=== PATIENT | female | born 1950 | race Caucasian/White ===

== ENCOUNTER → 2016-08-13 | Outpatient (CLI) | payer MEDICARE ==
--- NOTE | 2016-08-13 14:40 | XR ---
EXAMINATION TYPE: XR shoulder complete RT DATE OF EXAM: 08/13/2016 2:27 PM CLINICAL HISTORY: pain TECHNIQUE: Three views of the right shoulder are obtained. COMPARISON: None FINDINGS: There is no acute fracture/dislocation evident. The acromioclavicular and glenohumeral kenton int spaces appear moderately narrowed. The visualized ribs are intact and unremarkable. IMPRESSION: 1. There is no acute fracture or dislocation. ICD 10 NO FRACTURE, INITIAL EVALUATION
--- NOTE | 2016-08-13 14:41 | XR ---
EXAMINATION TYPE: XR knee complete RT DATE OF EXAM: 08/13/2016 2:27 PM CLINICAL HISTORY: pain TECHNIQUE: Three views of the right knee are obtained. COMPARISON: None. FINDINGS: There is no acute fracture/dislocation. The tri-compartment joint spaces appear within no rmal limits. The overlying soft tissue appears unremarkable. IMPRESSION: There is no acute fracture or dislocation. ICD 10 NO FRACTURE, INITIAL EVALUATION
== END | disposition home or self-care (01) ==
LOC: RADXRMAIN 14:05
PROVIDERS: ATTEND Nurse Practitioner Women's Health
DX: M25.561 Pain in right knee (principal); M25.511 Pain in right shoulder

== ENCOUNTER → 2016-08-28 | Outpatient (CLI) | payer MEDICARE ==
--- NOTE | 2016-08-30 10:42 | MM ---
Reason for exam: screening (asymptomatic). History: Patient is postmenopausal. Physical Findings: A clinical breast exam by your physician is recommended on an annual basis and results should be correlated with mammographic findings. MG 3D Screening Mammo W/Cad Bilateral CC and MLO view(s) were taken. XCCL view(s) were taken of the right breast. No prior studies available for comparison. The breast tissue is almost entirely fat. There is no discrete abnormality. ASSESSMENT: Negative, BI-RAD 1 RECOMMENDATION: Routine screening mammogram of both breasts in 1 year.
== END | disposition home or self-care (01) ==
LOC: RADMAMWWP 11:30
PROVIDERS: ATTEND Family Medicine
DX: Z12.31 Encounter for screening mammogram for malignant neoplasm of breast (principal)
CPT/HCPCS: 77063; G0202

== ENCOUNTER → 2017-03-05 | Outpatient (CLI) | payer MEDICARE, OTHER ==
--- NOTE | 2017-03-05 14:11 | MR ---
EXAMINATION TYPE: MR knee RT wo con DATE OF EXAM: 03/05/2017 COMPARISON: Right knee x-ray August 13, 2016. HISTORY: rt knee pain not further specified per order or by patient. TECHNIQUE: Multiplanar, multisequence images of the knee is performed without IV contrast. FINDINGS: MEDIAL MENISCUS: Anterior horn is intact without tear. There is oblique increased signal posterior ho rn of medial meniscus, there is more globular signal centrally extending to inferior articular surfac e on sagittal image 12, full-thickness meniscal tear is felt present. LATERAL MENISCUS: Posterior horn is intact without tear. There is triangular and globular increased s ignal anterior horn extending to superior articular surface felt to reflect product of full-thickness meniscal tear CRUCIATE LIGAMENTS: The anterior and posterior cruciate ligaments are intact and unremarkable. COLLATERAL LIGAMENTS: The medial collateral ligament and lateral collateral ligament complex are inta ct and unremarkable. EXTENSOR MECHANISM: Visualized quadriceps and patellar tendons are intact. EFFUSION: No significant suprapatellar joint effusion. POPLITEAL CYST: There is small popliteal/arnold cyst measuring 3.0 cm on long axis sagittal image 9. TRICOMPARTMENT SPACES: There is advanced joint space loss patellofemoral compartment with mild spurri ng. There is mild to moderate joint space loss and spurring medial and lateral tibiofemoral compartme nts. CARTILAGE: There is significant chondromalacia patella with full-thickness cartilaginous loss along p osterior patellar pole identified. Cartilaginous thinning medial tibiofemoral compartment is noted wi thout full-thickness defect. BONE MARROW SIGNAL: There is heterogeneous T2 signal felt to reflect reactive edema involving the pos terior patellar pole seen best sagittal image 21 and axial image 17. OTHER: No additional significant abnormality is appreciated. IMPRESSION: 1. Full-thickness tear posterior horn of medial meniscus. 2. Full-thickness tearing anterior horn of lateral meniscus. 3. 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 4. Mild to moderate degenerative changes medial and lateral tibiofemoral compartments. 5. Small popliteal cyst.
== END | disposition home or self-care (01) ==
LOC: RADMRIMAIN 13:21
PROVIDERS: ATTEND Nurse Practitioner Women's Health
DX: S83.241A Other tear of medial meniscus, current injury, right knee, initial encounter (principal); S83.281A Other tear of lateral meniscus, current injury, right knee, initial encounter; M17.11 Unilateral primary osteoarthritis, right knee; M22.41 Chondromalacia patellae, right knee; M71.21 Synovial cyst of popliteal space [Baker], right knee

== ENCOUNTER → 2017-03-20 | Outpatient (CLI) | payer MEDICARE, OTHER ==
[2017-03-20 14:52] LABS: Basophils % (A) 0 %; CH 32.2; Eosinophils # (A) 0.1 k/uL (0-0.7); Eosinophils % (A) 1 %; HCT 42.1 % (34.0-46.0); HDW 2.41; HGB 13.9 gm/dL (11.4-16.0); Luc # (Auto) 0.12; Luc % (Auto) 1; Lymphocytes # (A) 1.6 k/uL (1.0-4.8); Lymphocytes % (A) 18 %; MCH 32.4 pg (25.0-35.0); MCV 97.9 fL (80.0-100.0); Mean Platelet Volume 7.5; Monocytes # (A) 0.3 k/uL (0-1.0); Monocytes % (A) 4 %; Neutrophils # (A) 6.7 k/uL (1.3-7.7); Neutrophils % (A) 76 %; RDW 13.1 % (11.5-15.5); WBC 8.8 k/uL (3.8-10.6); WBC (Perox) 9.51
[2017-03-20 14:56] LABS: Partial Thromboplastin Time 22.2 sec (22.0-30.0); Prothrombin Time 10.4 sec (9.0-12.0)
[2017-03-20 15:06] LABS: ALT 22 U/L (9-52); AST 21 U/L (14-36); Alkaline Phosphatase 72 U/L (38-126); Anion Gap 9 mmol/L; Blood Urea Nitrogen 12 mg/dL (7-17); Calcium 9.4 mg/dL (8.4-10.2); Carbon Dioxide 30 mmol/L (22-30); Chloride 104 mmol/L (98-107); Glucose 161 mg/dL (74-99); Non-African American GFR(MDRD) >60 (>60 ml/min/1.73 sqM); Sodium 143 mmol/L (137-145); Total Bilirubin 0.5 mg/dL (0.2-1.3); Total Protein 7.1 g/dL (6.3-8.2)
== END | disposition home or self-care (01) ==
LOC: LABWHC1 14:14
PROVIDERS: ATTEND Family Medicine
DX: Z00.00 Encounter for general adult medical examination without abnormal findings (principal); L82.1 Other seborrheic keratosis; E78.00 Pure hypercholesterolemia, unspecified
CPT/HCPCS: 36415; 80053; 85025; 85610; 85730

== ENCOUNTER → 2017-03-22 | Outpatient (CLI) | payer MEDICARE, OTHER | END | disposition home or self-care (01) | LOC: LABPAT 09:40 | PROVIDERS: ATTEND Orthopaedic Surgery | DX: Z01.812 Encounter for preprocedural laboratory examination (principal) | CPT/HCPCS: 87070 ==

== ENCOUNTER → 2017-04-01 | Outpatient (CLI) | payer MEDICARE, OTHER | LOC: LABWHC1 09:00 | PROVIDERS: ATTEND Orthopaedic Surgery | DX: Z01.812 Encounter for preprocedural laboratory examination (principal); M16.11 Unilateral primary osteoarthritis, right hip | CPT/HCPCS: 86850; 86900; 86901 ==

== ENCOUNTER 2017-04-09 08:31 | Inpatient (IN) | payer MEDICARE, OTHER ==
[2017-03-29 15:05] VITALS: BMI 31.4
--- NOTE | 2017-04-05 15:16 | HP ---
HISTORY AND PHYSICAL CHIEF COMPLAINT: Right hip pain. HISTORY OF PRESENT ILLNESS: The patient is a 66-year-old retired female who presents with progressive right hip and thigh pain with activity and weightbearing over the past year. It has worsened significantly over the past 3 months. She notes she is limping. She has tried medications with only partial temporary relief. PAST MEDICAL HISTORY: Significant for hypertension, hypercholesterolemia, and heart murmur. PAST SURGICAL HISTORY: Significant for cholecystectomy. CURRENT MEDICATIONS: 1. Lasix. 2. Lisinopril. 3. Lovastatin. 4. Metoprolol. 5. Tramadol. She denies drug allergies. FAMILY HISTORY: Significant for cancer. SOCIAL HISTORY: Negative for current tobacco or alcohol use. 16-POINT REVIEW OF SYSTEMS: Otherwise reviewed and is noncontributory. PHYSICAL EXAMINATION: The patient is approximately 5 foot 6, 199 pounds of endomorphic habitus. HEENT exam is nonfocal. Neck is supple. She is nontender about the lumbar spine. Passive motion of the right hip, flexion 80 degrees, extension full. With the hips flexed, external rotation is 45 degrees. Internal rotation is 0 degrees with pain. Clinically, she has got 1 cm shortening of the right lower extremity compared to the left. Her distal neurovascular appears intact in the right lower extremity. X-RAYS: The right hip obtained in the office show severe right hip osteoarthrosis with bone-on- bone changes. IMPRESSION: 1. Right hip severe osteoarthrosis-symptomatic. 2. Increased body mass index. RECOMMENDATIONS: I talked to the patient at length regarding her treatment options. At this point, she is quite symptomatic and opts to proceed with surgery. We will plan to proceed with right total hip arthroplasty. Risks and benefits were discussed at length in layman's terms. We will institute DVT prophylaxis postoperatively. The patient underwent preoperative medical evaluation by Dr. Murrieta. MMANURADHA / RUBINAN: [id number] /
[~2017-04-09 08:31] MED LIST: ACETAMINOPHEN TAB 500 MG TAB PO ONE; DEXAMETHASONE SOD PHOSPHATE 10 MG/ML 1 ML VIAL IV ONE; HYDROmorphone 1 MG/ML 1 ML SYRINGE IVP PRN; LIDOCAINE 1% 20 ML VIAL (10MG/ML) FOR IV START INTRADERMA PRN; MELOXICAM 7.5 MG TAB PO ONE; ONDANSETRON 4 MG/2 ML VIAL IVP ONE; SCOPOLAMINE 1.5MG/72HR PATCH TRANSDERM ONE; TRANEXAMIC ACID 1,000 MG in SODIUM CHLORIDE 0.9% 100 ML IVPB ONE; ceFAZolin 2 GM in SODIUM CHLORIDE 0.9% 100 ML IVPB ONE
[2017-04-09] MEDS: LACTATED RINGERS 1,000 ML IV SCH (09:19)
[2017-04-09] MEDS ORDERED: MIDAZOLAM 2 MG/2 ML VIAL IV ONE (09:23)
[2017-04-09] MEDS ORDERED: SODIUM CHLORIDE 0.9% 100 ML BAG ONE (10:44)
[2017-04-09] MEDS ORDERED: fentaNYL (PF) 50 MCG/ML 2 ML AMP ONE (10:44)
[2017-04-09] MEDS ORDERED: PROPOFOL 10 MG/ML 20 ML VIAL IV ONE (10:44)
[2017-04-09] MEDS ORDERED: diphenhydrAMINE 50 MG/ML 1 ML VIAL ONE (10:44)
[2017-04-09] MEDS ORDERED: TRANEXAMIC ACID 1,000 MG/10 ML VIAL ONE (10:44)
[2017-04-09] MEDS ORDERED: MIDAZOLAM 2 MG/2 ML VIAL ONE (10:44)
[2017-04-09] MEDS ORDERED: ceFAZolin 3,000 MG in SODIUM CHLORIDE 0.9% IRRIGATIO 3,000 ML IRRIGATION ONE (11:30)
[2017-04-09] MEDS ORDERED: LACTATED RINGERS 1,000 ML IV ONE (12:03)
[2017-04-09] MEDS ORDERED: ONDANSETRON 4 MG/2 ML VIAL IVP PRN (13:09)
[2017-04-09] MEDS ORDERED: NALOXONE 0.4 MG/ML 1 ML VIAL IV PRN (13:09)
[2017-04-09] MEDS ORDERED: MAGNESIUM HYDROXIDE 2,400 MG/10 ML CUP PO PRN (13:09)
[2017-04-09] MEDS ORDERED: HYDROmorphone 1 MG/ML 1 ML SYRINGE IVP PRN ×2 (13:09)
[2017-04-09] MEDS ORDERED: HYDROcodone/APAP 5-325MG 1 EACH TAB PO PRN (13:09)
--- NOTE | 2017-04-09 13:33 | XR ---
Limited right hip HISTORY: Right hip replacement Intraoperative C-arm image documents the procedure
--- NOTE | 2017-04-09 13:42 | P.OP ---
Date of Procedure: 04/09/17 Preoperative Diagnosis: Right hip severe osteoarthrosis-primary Postoperative Diagnosis: Same Procedure(s) Performed: Right total hip qszirjcjrerc-hmqfx-njd-anterior approach Implants: Depuy Corail size 11 collared press-fit femoral stem, 32 mm +1.5 cobalt chrome femoral head, neutral polyethylene liner, 54 mm acetabular shell. Anesthesia: spinal Surgeon: Shadi Erickson Internet Marketing Consultant #1: Allen Aldridge Estimated Blood Loss (ml): 450 Pathology: other (Femoral head) Condition: stable Disposition: PACU Indications for Procedure: The patient's a 66-year-old female who presents with progressive right hip pain secondary to osteoarthrosis despite conservative measures. A discussion of the risks and benefits of operative intervention versus continued conservative measures was made with the patient. She opted to proceed. Operative risks to include infection, neurovascular injury, development of blood clots, possible leg length discrepancy, possible dislocation, possible fracture, possible loosening components and need for subsequent procedures was discussed. Informed consent was obtained. Operative Findings: As below Description of Procedure: The patient was brought to the operating room, and after induction of spinal anesthesia was placed supine on the Sabinal table. The right lower extremity was prepped and draped in normal fashion. Preoperative templating was previously performed as to make component positioning and sizes. She did have severe left hip osteoarthrosis as well. The proposed incision site was outlined with a skin marker proximally 3 finger breaths posterior and 2 finger breaths distal to the anterior superior iliac spine in line with the femoral shaft. The incision was extended and 12 cm. Skin was incised sharply. Subcu tissues were divided sharply. The fascia was identified. The perforators were identified. The fascia was opened just anterior to the perforators. The tensor muscle was bluntly dissected developing the tensor fascia shu/sartorius interval. The lateral circumflex vessels were identified and coagulated prior to sectioning. The posterior portion of the fascia was opened. The rectus was identified and elevated off the anterior capsule. Retractors were placed along the superior femoral neck an anterior acetabular rim. A wide capsulotomy was performed. The saddle region was cleared of soft tissue. The femoral neck osteotomy was performed at a 45 angle shaft proximal 1 cm above the level of the lesser trochanter. The head was extracted with a corkscrew. The remaining capsular labral tissue was debrided sharply. Retractors were placed anterior and posterior along the acetabular rims. I began reaming with a 47 mm reamer taking care to initially medialize then reaming at 45 of abduction and 20 of anteversion. This was done with the aid of fluoroscopy. Sequential reaming is performed up to 53 mm down to a bleeding bony surface. A 54 mm acetabular shell was inserted in the same orientation as fully seated. It was good rim fit and stability. The final 50 mm acetabular shell was inserted in 45 of abduction and 20 of anteversion. This was fully seated. I did place a 6.5 mm x 25 mm cancellus screw for additional stability. Good purchase was obtained. A neutral polyethylene liner was gently impacted taking care to avoid any soft tissue interposition. Pulsatile lavage was utilized. Attention was then paid towards preparing the proximal femur. Appropriate retractors were placed. The canal was then opened with the canal finder. A box chisel was used to open the metaphyseal region. Sequential broaching was performed up to size 11 broach. This was placed parallel to the posterior cortex and was fully seated. A calcar mill was used to fashion the medial calcar. A standard neck along with 32 mm +1.5 head was placed. The hip was gently reduced. It was taken through range of motion. It was stable in 0 and 60 of extension with 70 of external rotation. I felt there was adequate voodoo of soft tissue tension. There did appear to be 5 mm of lengthening of the right lower extremity compared to the left, however since she had significant osteoarthrosis on the left I felt this was reasonable. The hip was gently dislocated. The trial components were then removed. The final femoral stem was inserted again parallel to the posterior cortex and was fully seated. Again there was good rotational stability. The 32 mm +1.5 mm cobalt chrome head was gently impacted. The hip was gently reduced. Again it was taken through a range of motion in 0 and 60 of extension with external rotation. Pulsatile lavage was again utilized. The fascia was closed with running 0 Vicryl suture. The subcu tissues reapproximated interrupted 2-0 Vicryl sutures. The skin was reapproximated with 3-0 subcuticular strata fix suture. Skin tape and adhesive was applied. A sterile dressing was applied. The patient was then awoken from the patient and transferred to recovery room in good condition. Blood loss was estimated at 450 mL. She did receive Cell Saver. No complications were incurred. Sponge and needle counts were correct at the end the case.
--- NOTE | 2017-04-09 14:29 | XR ---
Limited right hip HISTORY: Status post right hip placement Single frontal view of the right hip No comparisons Patient is status post right hip arthroplasty. There is anatomic alignment in this single view. No fr acture or dislocation. Bone mineralization is reduced. Lucency in the soft tissues compatible with po stop state. IMPRESSION: Orthopedic follow-up
[2017-04-09] MEDS: HYDROcodone/APAP 5-325MG 1 EACH TAB PO PRN (16:17)
[2017-04-09] MEDS: ceFAZolin 2 GM in SODIUM CHLORIDE 0.9% 100 ML IVPB SCH (16:18)
--- NOTE | 2017-04-09 16:58 | FL ---
Fluoroscopy INDICATION: Pain FINDINGS: Fluoroscopy time: 1.24 minutes Images obtained: 1. IMPRESSIONS: 1. Documentation of fluoroscopy.
[2017-04-09] MEDS: traMADol 50 MG TAB PO SCH ×2 (18:37→22:58)
[2017-04-09] MEDS: SENNOSIDES-DOCUSATE SODIUM 1 EACH TAB PO SCH (22:58)
[2017-04-09] MEDS: LISINOPRIL 20 MG TAB PO SCH (23:24)
[2017-04-10] MEDS: ceFAZolin 2 GM in SODIUM CHLORIDE 0.9% 100 ML IVPB SCH (00:48)
[2017-04-10] MEDS: LACTATED RINGERS 1,000 ML IV SCH ×2 (00:50→21:52)
[2017-04-10 07:13] LABS: ALT 30 U/L (9-52); AST 31 U/L (14-36); Alkaline Phosphatase 53 U/L (38-126); Anion Gap 6 mmol/L; Blood Urea Nitrogen 14 mg/dL (7-17); Calcium 8.9 mg/dL (8.4-10.2); Carbon Dioxide 26 mmol/L (22-30); Chloride 106 mmol/L (98-107); Glucose 119 mg/dL (74-99); Non-African American GFR(MDRD) >60 (>60 ml/min/1.73 sqM); Potassium 4.3 mmol/L (3.5-5.1); Sodium 138 mmol/L (137-145); Total Bilirubin 0.4 mg/dL (0.2-1.3); Total Protein 5.5 g/dL (6.3-8.2)
[2017-04-10 07:29] LABS: Basophils % (A) 0 %; CH 33.3; CHCM 33.7; Eosinophils % (A) 0 %; HCT 32.6 % (34.0-46.0); HDW 2.35; Luc # (Auto) 0.15; Luc % (Auto) 1; Lymphocytes # (A) 1.3 k/uL (1.0-4.8); Lymphocytes % (A) 11 %; MCH 32.8 pg (25.0-35.0); MCHC 33.1 g/dL (31.0-37.0); MCV 99.3 fL (80.0-100.0); Mean Platelet Volume 7.7; Monocytes # (A) 0.5 k/uL (0-1.0); Monocytes % (A) 5 %; Neutrophils # (A) 9.7 k/uL (1.3-7.7); Neutrophils % (A) 83 %; RBC 3.28 m/uL (3.80-5.40); RDW 13.6 % (11.5-15.5); WBC 11.7 k/uL (3.8-10.6); WBC (Perox) 12.06
[2017-04-10 07:37] LABS: HGB 10.8 gm/dL (11.4-16.0)
[2017-04-10 07:42] VITALS: RESP 16
[2017-04-10] MEDS: ATORVASTATIN 10 MG TAB PO SCH (08:07)
[2017-04-10] MEDS: METOPROLOL TARTRATE 25 MG TAB PO SCH (08:07)
[2017-04-10] MEDS: LISINOPRIL 20 MG TAB PO SCH ×2 (08:07→20:02)
[2017-04-10] MEDS: FAMOTIDINE 20 MG TAB PO SCH (08:07)
[2017-04-10] MEDS: FUROSEMIDE 10 MG TAB PO SCH (08:07)
[2017-04-10] MEDS: POTASSIUM CITRATE 10 MEQ TABLET.ER PO SCH (08:07)
[2017-04-10] MEDS: RIVAROXABAN 10 MG TAB PO SCH (08:07)
[2017-04-10] MEDS: HYDROcodone/APAP 5-325MG 1 EACH TAB PO PRN (08:07)
--- NOTE | 2017-04-10 09:10 | P.CONS ---
History of Present Illness - Reason for Consult Consult date: 04/10/17 Medical management - Chief Complaint Right hip osteoarthritis - History of Present Illness 66-year-old female who underwent a right total hip arthroplasty. Dr. Maynard/Glenny was consulted for medical management. The patient has had worsening right hip pain over the last year and has tried conservative treatment outpatient with only minor relief. An x-ray completed at Dr. Erickson's office showed severe right hip osteoarthritis with [id number] changes. The patient does have a history of hypertension and hypercholesterolemia. The patient underwent a total right hip arthroplasty, anterior approach with Dr. Erickson on 04/09/2017 without complication. This morning she is seen sitting up in bed doing well. She states her pain is under control at this time and only really hurts when she moves her leg. The dressing to her right hip is dry clean and intact. The patient does not have any edema to the lower extremities. She is wearing FRANCK hose and sequential compression devices bilaterally. She denies shortness of breath or chest pain. Her oxygen saturations remained remained greater than 92% on room air. She is tolerating a regular diet without nausea or vomiting. She states she has not been out of bed yet but is anticipating getting up with physical therapy today. The patient does state her a couple days ago. The patient plans to go home with her children at the time of discharge. Review of Systems GENERAL: Patient denies fever, chills, weight gain, or weight loss. RESPIRATORY: Denies dyspnea, cough, sputum production, or hemoptysis. CARDIOVASCULAR: Denies chest pain, pressure, palpitations, claudication, or arrhythmias. GI: Denies abdominal pain, diarrhea, incontinence, heartburn, nausea, constipation, or blood in the stool. : Denies urinary frequency, burning, dysuria, or cloudy urine. Denies blood in the urine. MUSCULOSKELETAL: Positive for mild pain of right hip near surgical site. Past Medical History Past Medical History: Hyperlipidemia, Hypertension, Osteoarthritis (OA) Additional Past Medical History / Comment(s): RT HIP OA. WEARS SUPPORT STOCKINGS. HEART MURMUR. History of Any Multi-Drug Resistant Organisms: None Reported Past Surgical History: Cholecystectomy Additional Past Surgical History / Comment(s): COLONOSCOPY Past Anesthesia/Blood Transfusion Reactions: No Reported Reaction Past Psychological History: No Psychological Hx Reported Smoking Status: Never smoker Past Alcohol Use History: None Reported Additional Past Alcohol Use History / Comment(s): SMOKED OCC FOR MANY YEARS, NONE SINCE 1996 EST Past Drug Use History: None Reported - Past Family History Mother Family Medical History: Cancer Medications and Allergies Home Medications Medication Instructions Recorded Confirmed Type Furosemide [Lasix] 10 mg PO DAILY 03/29/17 04/09/17 History Ibuprofen [Motrin] 200 - 400 mg PO Q6HR PRN 03/29/17 04/09/17 History Lisinopril [Prinivil] 20 mg PO BID 03/29/17 04/09/17 History Lovastatin [Mevacor] 40 mg PO DAILY 03/29/17 04/09/17 History Metoprolol Tartrate [Lopressor] 25 mg PO DAILY 03/29/17 04/09/17 History Potassium Citrate [Potassium 10 meq PO DAILY 03/29/17 04/09/17 History Citrate ER] Rivaroxaban [Xarelto] 10 mg PO DAILY #28 tab 04/09/17 Rx Allergies Allergy/AdvReac Type Severity Reaction Status Date / Time No Known Allergies Allergy Verified 04/09/17 13:51 Physical Exam Vitals: Vital Signs Temp Pulse Pulse Pulse Resp BP BP 04/10/17 07:00 97.7 F 74 16 131/74 04/10/17 04:38 97.8 F 68 17 131/72 04/10/17 04:00 16 04/10/17 00:00 16 04/09/17 20:00 16 04/09/17 19:50 97.9 F 80 16 155/76 04/09/17 16:50 82 146/67 04/09/17 16:35 84 149/68 04/09/17 16:20 85 160/70 04/09/17 16:05 87 151/72 04/09/17 15:50 78 149/76 04/09/17 15:35 73 167/74 04/09/17 15:20 62 171/78 04/09/17 15:05 140/65 04/09/17 14:50 96.8 F L 69 16 176/93 04/09/17 14:25 63 16 143/74 04/09/17 14:10 58 L 16 137/70 04/09/17 13:55 52 L 6 L 126/66 04/09/17 13:40 56 L 16 132/63 04/09/17 13:27 98.9 F 59 L 16 132/61 04/09/17 09:00 98.3 F 80 16 198/89 Pulse Ox 04/10/17 07:00 93 L 04/10/17 04:38 97 04/10/17 04:00 04/10/17 00:00 04/09/17 20:00 04/09/17 19:50 95 04/09/17 16:50 04/09/17 16:35 04/09/17 16:20 04/09/17 16:05 04/09/17 15:50 04/09/17 15:35 04/09/17 15:20 04/09/17 15:05 04/09/17 14:50 95 04/09/17 14:25 99 04/09/17 14:10 99 04/09/17 13:55 100 04/09/17 13:40 98 04/09/17 13:27 97 04/09/17 09:00 96 Intake and Output 04/09/17 04/10/17 04/10/17 22:59 06:59 14:59 Intake Total 800 400 180 Output Total 800 980 900 Balance 0 -580 -720 Intake: IV 200 400 Lactated Ringers 1,000 ml 200 400 @ 50 mls/hr IV .Q20H [facility] Rx#:[id number] Oral 600 180 Output: Urine 800 980 900 Uretheral (Lopez) 980 900 Other: Voiding Method Indwelling Catheter Indwelling Catheter GENERAL: Alert and oriented. Appears in no acute distress. Pleasant and cooperative. RESPIRATORY: Lungs clear bilaterally. No use of accessory muscles. Patient maintaining oxygen saturation greater than 92% on room air. CARDIOVASCULAR: S1 and S2 noted. Rate and rhythm regular. No JVD noted. EXTREMITIES: No edema noted. Palpable pedal pulses +2. FRANCK hose and sequential compression devices noted ABDOMEN: No distention noted. Abdomen soft and round. bowel sounds auscultated 4 quadrants. No pain or tenderness noted upon palpation. SKIN: Dressing to right hip dry clean and intact. No drainage noted Results CBC & Chem 7: 04/10/17 06:37 04/10/17 06:37 Labs: Abnormal Lab Results - Last 24 Hours (Table) 04/10/17 04/10/17 Range/Units 06:37 06:37 WBC 11.7 H (3.8-10.6) k/uL RBC 3.28 L (3.80-5.40) m/uL Hgb 10.8 L D (11.4-16.0) gm/dL Hct 32.6 L (34.0-46.0) % Neutrophils # 9.7 H (1.3-7.7) k/uL Glucose 119 H (74-99) mg/dL Total Protein 5.5 L (6.3-8.2) g/dL Albumin 3.0 L (3.5-5.0) g/dL Assessment and Plan Plan: ASSESSMENT: Osteoarthritis, status post elective right total hip arthroplasty History of hypertension History of hypercholesterolemia Mild Leukocytosis, likely reactive secondary to surgery PLAN: -Continue postop surgical regimen per Dr. Erickson -Encourage ambulation. Patient work with physical therapy today -Continue incentive spirometer -GI prophylaxis: Patient receiving Pepcid 20 mg daily -DVT prophylaxis: Patient on Xarelto -Monitor vital signs and address as appropriate -Monitor labs -Resume home meds The above impression and plan of care have been discussed and directed by signing physician. Roberta Butler, nurse practitioner, acting as scribe for signing physician.
[2017-04-10] MEDS: traMADol 50 MG TAB PO SCH ×4 (09:45→21:28)
--- NOTE | 2017-04-10 12:13 | P.PN ---
Subjective Principal diagnosis: Status post right total hip arthroplasty Patient seen today resting in her hospital chair, she appears comfortable. She has family present at bedside. She notes minimal discomfort in the right hip region. She denies any headaches, lightheadedness, chest pain, shortness of breath. Objective - Vital Signs Vital signs: Vital Signs Temp 97.7 F 04/10/17 07:00 Pulse 74 04/10/17 07:00 Resp 16 04/10/17 07:00 BP 131/74 04/10/17 07:00 Pulse Ox 93 L 04/10/17 07:00 Intake & Output 04/09/17 04/10/17 04/10/17 18:59 06:59 18:59 Intake Total 196 1200 180 Output Total 800 1580 900 Balance 1161 380 -720 Weight 88.451 kg Intake: IV 1960 600 Lactated Ringers 1,000 ml 600 @ 50 mls/hr IV .Q20H [facility] Rx#:[id number] Oral 600 180 Output: Urine 350 1580 900 Uretheral (Lopez) 980 900 Estimated Blood Loss 450 Other: Voiding Method Indwelling Catheter Indwelling Catheter - Exam Right lower extremity: The incision is clean, dry, and intact. Minimal soft tissues ecchymosis. Calf is soft, no tenderness with palpation. Plantar flexion, dorsiflexion, EHL, FHL are intact. Sensory exam to light touch throughout the extremities intact, dorsal pedis pulses 2+. - Labs CBC & Chem 7: 04/10/17 06:37 04/10/17 06:37 Labs: Abnormal Lab Results - Last 24 Hours (Table) 04/10/17 04/10/17 Range/Units 06:37 06:37 WBC 11.7 H (3.8-10.6) k/uL RBC 3.28 L (3.80-5.40) m/uL Hgb 10.8 L D (11.4-16.0) gm/dL Hct 32.6 L (34.0-46.0) % Neutrophils # 9.7 H (1.3-7.7) k/uL Glucose 119 H (74-99) mg/dL Total Protein 5.5 L (6.3-8.2) g/dL Albumin 3.0 L (3.5-5.0) g/dL Assessment and Plan Plan: Assessment: 1. Postop day 1 status post right total hip arthroplasty Plan: 1. Pain control, continue use of oral medication 2. Continue working with therapy and use of CPM 3. Daily dressing changes/ice and elevate 4. Encourage incentive spirometer 5. GI and DVT prophylaxis, continue Xarelto 6. Medical recommendations 7. Discharge planning: Patient likely discharged home tomorrow Time with Patient: Less than 30
[2017-04-10] MEDS: SENNOSIDES-DOCUSATE SODIUM 1 EACH TAB PO SCH (20:01)
[2017-04-11] MEDS: HYDROcodone/APAP 5-325MG 1 EACH TAB PO PRN (06:41)
[2017-04-11 07:50] VITALS: BP 123/73; PULSE 77; TEMP 98.2
[2017-04-11] MEDS: traMADol 50 MG TAB PO SCH ×2 (08:05→13:15)
[2017-04-11] MEDS: POTASSIUM CITRATE 10 MEQ TABLET.ER PO SCH (08:06)
[2017-04-11] MEDS: ATORVASTATIN 10 MG TAB PO SCH (08:06)
[2017-04-11] MEDS: LISINOPRIL 20 MG TAB PO SCH (08:06)
[2017-04-11] MEDS: FUROSEMIDE 10 MG TAB PO SCH (08:06)
[2017-04-11] MEDS: FAMOTIDINE 20 MG TAB PO SCH (08:06)
[2017-04-11] MEDS: METOPROLOL TARTRATE 25 MG TAB PO SCH (08:06)
[2017-04-11] MEDS: RIVAROXABAN 10 MG TAB PO SCH (08:07)
--- NOTE | 2017-04-11 11:37 | P.PN ---
Subjective Principal diagnosis: Status post right total hip arthroplasty Patient seen today resting in her hospital chair, she appears comfortable. She notes minimal discomfort in the right hip region. She denies any headaches, lightheadedness, chest pain, shortness of breath. Objective - Vital Signs Vital signs: Vital Signs Temp 98.2 F 04/11/17 07:00 Pulse 77 04/11/17 07:00 Resp 16 04/11/17 07:00 BP 123/73 04/11/17 07:00 Pulse Ox 97 04/11/17 07:00 Intake & Output 04/10/17 04/11/17 04/11/17 18:59 06:59 18:59 Intake Total 1300 100 Output Total 900 Balance 400 100 Intake: Oral 1300 100 Output: Urine 900 Uretheral (Lopez) 900 Other: Voiding Method Indwelling Catheter Toilet Toilet # Voids 1 - Exam Right lower extremity: The incision is clean, dry, and intact. Minimal soft tissues ecchymosis. Calf is soft, no tenderness with palpation. Plantar flexion, dorsiflexion, EHL, FHL are intact. Sensory exam to light touch throughout the extremities intact, dorsal pedis pulses 2+. - Labs CBC & Chem 7: 04/10/17 06:37 04/10/17 06:37 Assessment and Plan Plan: Assessment: 1. Postop day #2 status post right total hip arthroplasty Plan: 1. Pain control, continue use of oral medication 2. Continue working with therapy and use of CPM 3. Daily dressing changes/ice and elevate 4. Encourage incentive spirometer 5. GI and DVT prophylaxis, discharged home on aspirin 325 mg twice a day 6. Medical recommendations 7. Discharge planning: Patient will be discharged home today Time with Patient: Less than 30
--- NOTE | 2017-04-11 11:43 | P.DS ---
Providers Date of admission: 04/09/17 08:31 Expected date of discharge: 04/11/17 Attending physician: Shadi Erickson Consults: 04/09/17 13:09 Consult Physician Routine Consulting Provider: Maico Maynard Reason/Comments: medical management Do you want consulting provider notified?: Yes Primary care physician: Maico Maynard Hospital Course: Date of admission: 04/09/2017 Date of discharge: 04/11/2017 Admission diagnosis: Status post right total hip arthroplasty Discharge diagnosis: Same Attending physician: Dr. Erickson Surgical procedures: Right total hip arthroplasty Brief history: Patient is a 66-year-old female with a history of progressive primary right hip osteoarthritis. At this point patient has failed conservative treatment measures and has opted to proceed with a elective right total hip arthroplasty. Hospital course: Details of patient's surgery can be found in operative report. Patient tolerated the procedure well and was subsequently transported to orthopedic floor. Patient's orthopeidc and medical care was provided daily. Patient had daily laboratory tests performed for evaluation of overall blood counts. Patient had daily physical therapy to include strengthening range of motion as well as education with walker ambulation. Patient was treated with Xarelto for their postoperative DVT prophylaxis during their inpatient stay. Patient was noted to have a relatively uneventful postoperative course. Patient reported satisfactory pain control with oral pain medications by postoperative day 0. Patient showed satisfactory progress with physical therapy. Patient moved steadily through the program and had no difficulty meeting the goals by postoperative day 2. Given patient's otherwise satisfactory course and having met physical therapy goals, plan is to discharge patient home on postoperative day 2. Discharge condition/disposition: Patient will be discharged home in stable condition. Discharge medications: Instructions are given on resumption of patient's normal daily medications per primary care recommendation, in addition patient will be prescribed [place] 5 mg/325 mg, tramadol 50 mg, Pepcid 20 mg, Colace 100 mg, aspirin and 25 mg. Discharge instructions: 1. Wound care and infection precautions, keep incision dry and covered while showering, no lotions, creams, moisturizers. No soaking, tubs, pools, hottubs. Do not scrub over the incision. 2. Weight-bear as tolerated with walker / cane until follow-up. 3. Ice and elevate when necessary. Do not exceed 20 minutes per hour with ice pack. 4. Utilize compression sleeve until seen at first follow up appointment. 5. Visiting nursing care. 6. Home physical therapy. 7. Pain meds and anticoagulants per prescription. 8. Pain medication has potential to cause constipation. Increase oral fluid and fiber intake. Contact primary care provider if you have not had a bowel movement within 48 hours after discharge 9. No anti-inflammatory medication until discussed at first post operative visit, this including Motrin, Aleve, Mobic, Diclofenac. 10. Follow up in office at 2 weeks postop with Theron Aldridge PA-C 11. Follow up with your primary care doctor 7-10 days after discharge. 12. Contact [facility] with any questions, . Procedures: Right total hip arthroplasty Patient Condition at Discharge: Good Plan - Discharge Summary New Discharge Prescriptions: New Aspirin 325 mg PO BID #60 tab Docusate [Colace] 100 mg PO DAILY #30 capsule Famotidine [Pepcid] 20 mg PO DAILY #30 tablet Hydrocodone/Acetaminophen [[place] 5-325] 1 - 2 each PO Q6HR PRN #40 tab PRN Reason: Pain traMADol HCl [Ultram] 50 mg PO Q6H PRN #40 tab PRN Reason: Pain No Action Ibuprofen [Motrin] 200 - 400 mg PO Q6HR PRN PRN Reason: Pain Potassium Citrate [Potassium Citrate ER] 10 meq PO DAILY Lisinopril [Prinivil] 20 mg PO BID Metoprolol Tartrate [Lopressor] 25 mg PO DAILY Furosemide [Lasix] 10 mg PO DAILY Lovastatin [Mevacor] 40 mg PO DAILY Discharge Medication List Furosemide [Lasix] 10 mg PO DAILY 03/29/17 [History] Ibuprofen [Motrin] 200 - 400 mg PO Q6HR PRN 03/29/17 [History] Lisinopril [Prinivil] 20 mg PO BID 03/29/17 [History] Lovastatin [Mevacor] 40 mg PO DAILY 03/29/17 [History] Metoprolol Tartrate [Lopressor] 25 mg PO DAILY 03/29/17 [History] Potassium Citrate [Potassium Citrate ER] 10 meq PO DAILY 03/29/17 [History] Aspirin 325 mg PO BID #60 tab 04/11/17 [Rx] Docusate [Colace] 100 mg PO DAILY #30 capsule 04/11/17 [Rx] Famotidine [Pepcid] 20 mg PO DAILY #30 tablet 04/11/17 [Rx] Hydrocodone/Acetaminophen [[place] 5-325] 1 - 2 each PO Q6HR PRN #40 tab 04/11/17 [Rx] traMADol HCl [Ultram] 50 mg PO Q6H PRN #40 tab 04/11/17 [Rx] Follow up Appointment(s)/Referral(s): [facility], [NON-STAFF] - Allen Aldridge PAC [PHYSICIAN MECHANICAL LEAD] - 04/24/17 3:30 pm Maico Maynard MD [Primary Care Provider] - 3 Days Activity/Diet/Wound Care/Special Instructions: Orthopedic Discharge Instructions: 1. Wound care and infection precautions, keep incision dry and covered while showering, no lotions, creams, moisturizers. No soaking, pools, hot tubs. Do not scrub over incision. 2. Weight-bear as tolerated with walker / cane until follow-up. 3. Ice and elevate when necessary. Do not exceed 20 minutes per hour with ice pack. 4. Utilize compression sleeve until seen at first follow up appointment. 5. Visiting nursing care. 6. Home physical therapy. 7. Pain meds and anticoagulants per prescription. 8. Pain medication has potential to cause constipation. Increase oral fluid and fiber intake. Contact primary care provider if you have not had a bowel movement within 48 hours after discharge. 9. No anti-inflammatory medication until discussed at first post operative visit, this including Motrin, Aleve, Mobic, Diclofenac. 10. Follow up in office at 2 weeks postop with Theron Aldridge PA-C 11. Follow up with your primary care doctor 7-10 days after discharge. 12. Contact [facility] with any questions, . Discharge Disposition: HOME WITH HOME HEALTH SERVICES
--- NOTE | 2017-04-11 12:43 | P.PN ---
Progress Note - Text 66-year-old female seen and examined on rounds with Dr. Maynard. The patient is status post right total hip arthroplasty. She denies any concerns or complaints. She denies shortness of breath or chest pain. She has been sitting up in the chair. She complains of minimal pain. She's been tolerating oral diet without nausea or vomiting. States she has been up walking independently to the bathroom. Vital signs have been stable. Dr. Maynard, patient is medically cleared for discharge and can follow up with Dr. Maynard on outpatient basis.
== END 2017-04-11 15:04 | disposition home health service (06) | DRG 470 ==
LOC: 2ORMAIN 08:31 → 3SUR 13:17
PROVIDERS: ADMIT Orthopaedic Surgery; ATTEND Orthopaedic Surgery
PROC: 0SR902A Replacement of Right Hip Joint with Metal on Polyethylene Synthetic Substitute, Uncemented, Open Approach (ICD-10-PCS; principal; 2017-04-09 10:25)
DX: M16.11 Unilateral primary osteoarthritis, right hip (principal); I10 Essential (primary) hypertension; E78.5 Hyperlipidemia, unspecified; E78.00 Pure hypercholesterolemia, unspecified; Z79.01 Long term (current) use of anticoagulants; Z79.899 Other long term (current) drug therapy; D72.829 Elevated white blood cell count, unspecified
CPT/HCPCS: 73501; 80053; 85025; 86850; 86900; 86901; 88300

== ENCOUNTER → 2017-09-12 | Outpatient (CLI) | payer MEDICARE, OTHER ==
[2017-09-12 10:28] LABS: Basophils # (A) 0.1 k/uL (0-0.2); Basophils % (A) 0 %; Eosinophils # (A) 0.1 k/uL (0-0.7); Eosinophils % (A) 1 %; HCT 45.3 % (34.0-46.0); HGB 14.5 gm/dL (11.4-16.0); Lymphocytes # (A) 1.7 k/uL (1.0-4.8); Lymphocytes % (A) 16 %; MCH 30.5 pg (25.0-35.0); MCV 95.2 fL (80.0-100.0); Mean Platelet Volume 6.9; Monocytes # (A) 0.5 k/uL (0-1.0); Monocytes % (A) 5 %; Neutrophils % (A) 75 %; Platelet Count 264 k/uL (150-450); RBC 4.76 m/uL (3.80-5.40); RDW 13.8 % (11.5-15.5); WBC 10.6 k/uL (3.8-10.6)
[2017-09-12 10:37] LABS: ALT 22 U/L (9-52); AST 24 U/L (14-36); Albumin 4.4 g/dL (3.5-5.0); Alkaline Phosphatase 93 U/L (38-126); Anion Gap 11 mmol/L; Blood Urea Nitrogen 11 mg/dL (7-17); Calcium 9.5 mg/dL (8.4-10.2); Carbon Dioxide 25 mmol/L (22-30); Chloride 105 mmol/L (98-107); Cholesterol 164 mg/dL (<200); Glucose 145 mg/dL (74-99); HDL Cholesterol 63 mg/dL (40-60); LDL Cholesterol,Calculated 78 mg/dL (0-99); Potassium 4.1 mmol/L (3.5-5.1); Sodium 141 mmol/L (137-145); Total Bilirubin 0.7 mg/dL (0.2-1.3); Total Protein 7.5 g/dL (6.3-8.2); Triglycerides 115 mg/dL (<150)
== END | disposition home or self-care (01) ==
LOC: LABWHC1 10:08
PROVIDERS: ATTEND Family Medicine
DX: Z00.00 Encounter for general adult medical examination without abnormal findings (principal); E78.00 Pure hypercholesterolemia, unspecified; I10 Essential (primary) hypertension
CPT/HCPCS: 36415; 80053; 80061; 84443; 85025; 86803

== ENCOUNTER → 2017-10-07 | Outpatient (CLI) | payer MEDICARE, OTHER ==
--- NOTE | 2017-10-08 10:44 | MM ---
Reason for exam: screening (asymptomatic). Last mammogram was performed 1 year and 1 month ago. History: Patient is postmenopausal. Physical Findings: A clinical breast exam by your physician is recommended on an annual basis and results should be correlated with mammographic findings. MG 3D Screening Mammo W/Cad Bilateral CC and MLO view(s) were taken. Prior study comparison: August 28, 2016, bilateral MG 3d screening mammo w/cad. There are scattered fibroglandular densities. No significant changes when compared with prior studies. ASSESSMENT: Negative, BI-RAD 1 RECOMMENDATION: Routine screening mammogram of both breasts in 1 year.
--- NOTE | 2017-10-08 14:15 | BD ---
EXAMINATION TYPE: MG DEXA axial skeleton. DATE OF EXAM: 10/07/2017 COMPARISON: NONE CLINICAL HISTORY: 67-year-old female osteoporosis screening Height: 67 Weight: 200.8 FRAX RISK QUESTIONS: Alcohol (3 or more units per day): no Family History (Parent hip fracture): no Glucocorticoids (More than 3mos): no (Ex: prednisone, prednisolone, methylprednisolone, dexamethasone, and hydrocortisone). History of Fracture in Adulthood: no Secondary Osteoporosis: 1. Type 1 Diabetes: no 2. Hyperthyroidism: no 3. Menopause before 45: no 4. Malnutrition: no 5. Chronic liver disease: no Rheumatoid Arthritis: no Current Tobacco Use: no RISK FACTORS HISTORY OF: Surgery to Spine/Hip(right/left)/Wrist (right/left): right hip When: 6 months ago Family History of Osteoporosis: yes Active: yes Diet low in dairy products/other sources of calcium: yes Postmenopausal woman: around age 48 Lost more than 2 inches in height since high school: no Frequent falls: no Adrenal Insufficiency: no MEDICATIONS: Lasix, potassium, metoprolol, lisinopril, lovastatin Additional History: EXAM MEASUREMENTS: Bone mineral densitometry was performed using the [employer] System. Bone mineral density as measured about the Lumbar spine is: ----- L1-L4(G/cm2): 1.235 T Score Values are as follows: ----- L2: -0.7 ----- L3: 0.8 ----- L4: 1.3 ----- L1-L4: 0.5 Bone mineral density has: baseline Bone mineral density about the L hip (g/cm2): 1.200 T Score values are as follows: -----L Neck: 1.2 -----L Total: 1.5 Bone mineral density has: baseline IMPRESSION: Normal (Values between +1 and -1 indicate normal bone mass). Consider repeating this study in 5 year s or sooner if there is some new clinical indication. NOTE: T-SCORE=SD OF THE YOUNG ADULT MEAN.
== END | disposition home or self-care (01) ==
LOC: RADMAMWWP 14:53
PROVIDERS: ATTEND Family Medicine
DX: Z12.31 Encounter for screening mammogram for malignant neoplasm of breast (principal); Z13.820 Encounter for screening for osteoporosis
CPT/HCPCS: 77063; 77067; 77080

== ENCOUNTER → 2018-10-24 | Outpatient (CLI) | payer MEDICARE ==
--- NOTE | 2018-10-28 08:28 | MM ---
Reason for exam: screening (asymptomatic). Last mammogram was performed 1 year and 1 month ago. History: Patient is postmenopausal. Physical Findings: A clinical breast exam by your physician is recommended on an annual basis and results should be correlated with mammographic findings. MG 3D Screening Mammo W/Cad Bilateral CC and MLO view(s) were taken. Prior study comparison: October 07, 2017, bilateral MG 3d screening mammo w/cad. August 28, 2016, bilateral MG 3d screening mammo w/cad. There are scattered fibroglandular densities. No significant changes when compared with prior studies. ASSESSMENT: Benign, BI-RAD 2 RECOMMENDATION: Routine screening mammogram of both breasts in 1 year.
== END | disposition home or self-care (01) ==
LOC: RADMAMWWP 12:26
PROVIDERS: ATTEND Family Medicine
DX: Z12.31 Encounter for screening mammogram for malignant neoplasm of breast (principal)
CPT/HCPCS: 77063; 77067

== ENCOUNTER → 2019-08-06 | Outpatient (CLI) | payer MEDICARE ==
--- NOTE | 2019-08-06 16:05 | XR ---
EXAMINATION TYPE: XR knee complete LT DATE OF EXAM: 08/06/2019 CLINICAL HISTORY: Left knee pain after fall TECHNIQUE: Three views of the left knee are obtained. COMPARISON: None. FINDINGS: There is no acute fracture/dislocation evident in left knee. The tri-compartment joint sp aces appear aligned. Patellofemoral compartment osteophytes are seen. The overlying soft tissue appe ars unremarkable. IMPRESSION: There is no acute fracture or dislocation in the left knee. Patellofemoral compartment a rthropathy.
--- NOTE | 2019-08-06 16:06 | XR ---
EXAMINATION TYPE: XR elbow complete LT DATE OF EXAM: 08/06/2019 CLINICAL HISTORY: Limited range of motion and left elbow pain after fall TECHNIQUE: Frontal, lateral and oblique images of the left elbow are obtained. COMPARISON: None FINDINGS: There is a vertically oriented fracture of the radial head with intra-articular extension. This is acute and nondisplaced. Very small joint effusion is seen. No additional fracture is identifi ed. Osteophytes are seen of the medial and lateral condyles. IMPRESSION: Acute, intra-articular, noncomminuted, nondisplaced left radial head fracture with small joint effusion. A Yellow level critical message alert has been initiated for Isrrael Murrieta Jr, DO via the [employer] Critical Results System on 08/06/2019 4:04 PM. This message alert has been sent to Isrrael padilla Jr, DO via the preferences provided by the clinician for the receipt of Radiology Critical Findings . Message ID [id number].
== END | disposition home or self-care (01) ==
LOC: RADXRMAIN 15:16
PROVIDERS: ATTEND Family Medicine
DX: S52.125A Nondisplaced fracture of head of left radius, initial encounter for closed fracture (principal); M12.862 Other specific arthropathies, not elsewhere classified, left knee

== ENCOUNTER → 2020-01-27 | Outpatient (CLI) | payer MEDICARE ==
--- NOTE | 2020-01-28 12:04 | MM ---
Reason for exam: screening (asymptomatic). Last mammogram was performed 1 year and 3 months ago. History: Patient is postmenopausal. Physical Findings: A clinical breast exam by your physician is recommended on an annual basis and results should be correlated with mammographic findings. MG 3D Screening Mammo W/Cad Bilateral CC and MLO view(s) were taken. Prior study comparison: October 24, 2018, bilateral MG 3d screening mammo w/cad. October 07, 2017, bilateral MG 3d screening mammo w/cad. There are scattered fibroglandular densities. There are benign appearing round calcifications bilaterally. There is no discrete abnormality. ASSESSMENT: Benign, BI-RAD 2 RECOMMENDATION: Routine screening mammogram of both breasts in 1 year.
== END | disposition home or self-care (01) ==
LOC: RADMAMWWP 12:47
PROVIDERS: ATTEND Family Medicine
DX: Z12.31 Encounter for screening mammogram for malignant neoplasm of breast (principal)
CPT/HCPCS: 77063; 77067

== ENCOUNTER → 2020-02-10 | Outpatient (CLI) | payer MEDICARE ==
[2020-02-10 15:42] LABS: Basophils % (A) 0 %; Eosinophils # (A) 0.1 k/uL (0-0.7); Eosinophils % (A) 1 %; HGB 14.7 gm/dL (11.4-16.0); Lymphocytes # (A) 1.5 k/uL (1.0-4.8); Lymphocytes % (A) 19 %; MCHC 31.2 g/dL (31.0-37.0); MCV 99.1 fL (80.0-100.0); Monocytes # (A) 0.4 k/uL (0-1.0); Monocytes % (A) 5 %; Neutrophils # (A) 5.5 k/uL (1.3-7.7); Neutrophils % (A) 73 %; Platelet Count 225 k/uL (150-450); RBC 4.74 m/uL (3.80-5.40); RDW 13.3 % (11.5-15.5); WBC 7.6 k/uL (3.8-10.6)
[2020-02-10 23:06] LABS: INR 0.96 (0.90-1.11); Prothrombin Time 10.3 sec (9.9-11.9)
[2020-02-10 23:11] LABS: Anion Gap 11.3 mmol/L (4.00-12.00); Carbon Dioxide 24.7 mmol/L (21.6-31.8); Potassium 4.1 mmol/L (3.5-5.5)
== END | disposition home or self-care (01) ==
LOC: LABWHC1 12:48
PROVIDERS: ATTEND Family Medicine
DX: Z01.818 Encounter for other preprocedural examination (principal)
CPT/HCPCS: 36415; 80051; 85025; 85610; 87070; 93005

== ENCOUNTER → 2020-02-15 | Outpatient (CLI) | payer MEDICARE | END | disposition home or self-care (01) | LOC: LABPAT 12:00 | PROVIDERS: ATTEND Orthopaedic Surgery | DX: M16.12 Unilateral primary osteoarthritis, left hip (principal) | CPT/HCPCS: 36415; 86850; 86900; 86901 ==

== ENCOUNTER 2020-02-23 05:37 | Observation (INO) | payer MEDICARE ==
[2020-02-15 10:51] VITALS: BMI 31.3
--- NOTE | 2020-02-22 12:43 | HP ---
HISTORY AND PHYSICAL CHIEF COMPLAINT: Left hip pain. HISTORY OF PRESENT ILLNESS: Patient is a 69-year-old retired female who presents with progressive left hip pain for the past couple of years, worsening over the past month. She notes groin pain that radiates into her thigh with weightbearing activities. She has been limping. She is having night symptoms. She is using a cane. She has tried aspirin in addition to diclofenac gel. PAST MEDICAL HISTORY: Significant for osteoarthritis, hypercholesterolemia, hypertension and heart murmur. PAST SURGICAL HISTORY: Significant for right total hip arthroplasty and cholecystectomy. CURRENT MEDICATIONS: Lasix, lisinopril, lovastatin, metoprolol, diclofenac gel. ALLERGIES: She denies drug allergies. FAMILY HISTORY: Significant for cancer. SOCIAL HISTORY: Negative for current tobacco or alcohol use. REVIEW OF SYSTEMS: Sixteen point review of systems otherwise reviewed and is noncontributory. PHYSICAL EXAMINATION: On examination, the patient is approximately 5 foot 6 inches, 198 pounds of endomorphic habitus. HEENT exam is nonfocal. Neck is supple. On examination of her left hip, passive motion flexion 75 degrees, external rotation with the hip flexed 50 degrees, internal rotation 20 degrees with pain. Clinically, she has 1 cm shortening of the left lower extremity compared to the right. Her distal neurovascular exam appears intact in the left lower extremity. IMAGING: AP and lateral views of the left hip obtained in the office show severe osteoarthrosis with [id number] changes. There is subchondral sclerosis. IMPRESSION: Left hip severe osteoarthrosis-symptomatic. RECOMMENDATIONS: I talked to the patient at length regarding her condition along with treatment options. She remains quite limited because of pain related to her osteoarthrosis despite conservative treatment. After thorough discussion, she opts to proceed with surgery. We will plan to proceed with left total hip arthroplasty utilizing an anterior approach. Risks and benefits were discussed at length in layman's terms. We will institute DVT prophylaxis postoperatively. The patient underwent preoperative medical evaluation by Dr. Maynard. MMODL / IJN: [id number] /
[~2020-02-23 05:37] MED LIST changes: -DEXAMETHASONE SOD PHOSPHATE 10 MG/ML 1 ML VIAL IV ONE; -HYDROmorphone 1 MG/ML 1 ML SYRINGE IVP PRN; -LIDOCAINE 1% 20 ML VIAL (10MG/ML) FOR IV START INTRADERMA PRN; -ONDANSETRON 4 MG/2 ML VIAL IVP ONE; -SCOPOLAMINE 1.5MG/72HR PATCH TRANSDERM ONE; -ceFAZolin 2 GM in SODIUM CHLORIDE 0.9% 100 ML IVPB ONE
[2020-02-23] MEDS ORDERED: LIDOCAINE 1% (10MG/ML) FOR IV START INTRADERMA PRN (05:39)
[2020-02-23] MEDS ORDERED: ONDANSETRON 4 MG/2 ML VIAL IVP ONE (05:39)
[2020-02-23] MEDS ORDERED: HYDROmorphone 0.5 MG/0.5 ML SYRINGE IVP PRN (05:39)
[2020-02-23] MEDS ORDERED: ACETAMINOPHEN TAB 500 MG TAB ONE (06:27)
[2020-02-23] MEDS ORDERED: ONDANSETRON 4 MG/2 ML VIAL ONE (06:27)
[2020-02-23] MEDS: LACTATED RINGERS 1,000 ML IV SCH (06:32)
[2020-02-23] MEDS ORDERED: DEXAMETHASONE SOD PHOSPHATE 10 MG/ML 1 ML VIAL IV ONE (06:36)
[2020-02-23] MEDS ORDERED: PROPOFOL 10 MG/ML 20 ML VIAL IV ONE (07:11)
[2020-02-23] MEDS ORDERED: TRANEXAMIC ACID 1,000 MG/10 ML VIAL ONE (07:11)
[2020-02-23] MEDS ORDERED: MIDAZOLAM 2 MG/2 ML VIAL ONE (07:11)
[2020-02-23] MEDS ORDERED: SODIUM CHLORIDE 0.9% 100 ML BAG ONE (07:11)
[2020-02-23] MEDS ORDERED: fentaNYL (PF) 50 MCG/ML 2 ML AMP ONE (07:11)
[2020-02-23] MEDS ORDERED: ceFAZolin 3,000 MG in SODIUM CHLORIDE 0.9% IRRIGATIO 3,000 ML IRRIGATION ONE (07:49)
[2020-02-23] MEDS ORDERED: LACTATED RINGERS 1,000 ML IV ONE (08:04)
[2020-02-23] MEDS ORDERED: HYDROcodone/APAP 5-325MG 1 EACH TAB PO PRN (09:20)
[2020-02-23] MEDS ORDERED: MAGNESIUM HYDROXIDE 2,400 MG/10 ML CUP PO PRN (09:20)
[2020-02-23] MEDS ORDERED: ACETAMINOPHEN TAB 325 MG TAB PO PRN (09:20)
[2020-02-23] MEDS ORDERED: traMADol 50 MG TAB PO PRN (09:20)
[2020-02-23] MEDS ORDERED: NALOXONE 0.4 MG/ML 1 ML VIAL IV PRN (09:20)
[2020-02-23] MEDS ORDERED: ONDANSETRON 4 MG/2 ML VIAL IVP PRN (09:20)
--- NOTE | 2020-02-23 09:46 | P.OP ---
Date of Procedure: 02/23/20 Preoperative Diagnosis: Left hip severe osteoarthrosis Postoperative Diagnosis: Same Procedure(s) Performed: Left total hip arthroplastyanterior approach Implants: Depuy Corail size 11 standard press-fit collared femoral stem, 36 mm +1.5 cobalt chrome femoral head, 54 mm [place] acetabular shell with neutral polyethylene liner. Anesthesia: spinal Surgeon: Shadi Erickson Wafer Fabrication Technician #1: Allen Aldridge Estimated Blood Loss (ml): 250 Pathology: other (Femoral head) Condition: stable Disposition: PACU Indications for Procedure: The patient's a 69-year-old female who presents with progressive left hip pain secondary to osteoarthrosis despite conservative measures. A discussion of the risks and benefits of operative intervention versus continued conservative measures was made with patient. She opted to proceed with surgery. Operative risks to include infection, neurovascular injury, development of blood clots, possible fracture, possible leg length discrepancy, possible instability and need for subsequent procedures was discussed. Informed consent was obtained. Operative Findings: As below Description of Procedure: The patient was brought to the operating room, and after induction of spinal anesthesia was placed supine on the Sonya table. Positioning was checked with fluoroscopy. The left hip was then prepped and draped in a normal fashion. A 12 cm incision was then made starting 2 fingerbreadths distal and 3 finger breaths posterior to the ASIS in line with the proximal femur. The skin was incised sharply. Subcutaneous tissues were divided sharply. Electrocautery was used for hemostasis. The fascia was split in line with skin incision. The interval between the sartorius and tensor fascia shu was then bluntly developed. The posterior fascia was opened with electrocautery. The lateral circumflex vessels were identified and cauterized prior to sectioning. A retractor was placed along the superior femoral neck as well as the anterior acetabular rim. A wide capsulotomy was performed. The neck cut was then made at a 45 angle to the shaft approximately 1 1/2 cm above the level of the lesser trochanter. The head was extracted. Attention was then paid towards preparing the acetabular. Anterior and posterior retractors were placed. The remaining capsular labral tissue sharply debrided clearly defining the acetabular margins. I began reaming with a 47 mm reamer taking care to initially medialize then reaming at 45 of abduction and 20 of anteversion. Sequential reaming is performed up to 53 mm. A trial D4 mm acetabular shell was inserted in the same orientation and was fully seated. There was good rim fit and stability. Positioning was checked with fluoroscopy. The final 4 mm acetabular shell was inserted again at 45 of abduction and 20 of anteversion. This was fully seated. There was good rim fit and stability. Again fluoroscopy was used to check the adequacy of placement. A neutral polyethylene liner was gently impacted. Care was taken to avoid any soft tissue interposition. Pulsatile lavage was utilized. Attention was then paid towards preparing the proximal femur. The central region was cleared of soft tissue. A canal finder was used to find the femoral canal. Sequential broaching was performed up to size 11 taking care to lateralize proximally. A calcar mill was used to fashion the medial calcar. There was good rotational stability. A standard neck along with a 36 mm +1.5 head was placed. The hip was gently reduced. Fluoroscopy was used to check the adequacy of positioning along with leg lengths. I felt both were good. The hip was gently dislocated. The trial components were removed. The final size 11 collared standard press-fit femoral stem was inserted parallel to the posterior cortex. This was fully seated and there was good rotational stability. A 36 mm +1.5 cobalt chrome femoral head was placed. This was gently impacted. The hip was then gently reduced. Final fluoroscopic view showed adequate placement implant along with shinto of leg length. Stability was checked with 80 of external rotation and 60 of extension of the left hip. The wound was irrigated with sterile lavage. The fascia was closed with running 0 Vicryl suture. There was minimal drainage therefore a deep drain was not placed. The second dose of IV TXA was given. The subcutaneous tissues were reapproximated interrupted 2-0 Vicryl sutures. The skin was reapproximated with 3-0 subcuticular strata fix suture. Skin tape and adhesive was applied. A sterile dressing was applied. The patient was then awoken from sedation and transferred to recovery room in good condition. Blood loss was estimated at 250 mL. No complications were incurred. Sponge and needle counts were correct at the end of the case. Theron BARTHOLOMEW assisted during the major components is case to include exposure, bone resection, implantation, and closure.
--- NOTE | 2020-02-23 10:16 | XR ---
EXAMINATION TYPE: XR Hip Limited LT DATE OF EXAM: 02/23/2020 COMPARISON: NONE HISTORY: 69-year-old female status post hip surgery, assess surgical alignment FINDINGS: Image shows placement of left opercular plasty. Alignment grossly anatomic. Scattered soft tissue air related to recent operation. The components are well seated without periprosthetic fracture. IMPRESSION: Uncomplicated postoperative appearance left total hip arthroplasty.
--- NOTE | 2020-02-23 12:05 | XR ---
EXAMINATION TYPE: XR Hip Limited LT, FL guidance operating room DATE OF EXAM: 02/23/2020 COMPARISON: NONE HISTORY: 69-year-old female with anterior left hip replacement FINDINGS: 2 images during intraoperative fluoroscopy of left hip total arthroplasty. FLUOROSCOPY Fluoroscopy time of 1 minute 24 seconds was used during left hip arthroplasty. 2 image/s document/s the procedure. IMPRESSION: Intraoperative fluoroscopy as above.
[2020-02-23] MEDS: HYDROmorphone 0.5 MG/0.5 ML SYRINGE IVP PRN ×2 (13:12→16:30)
--- NOTE | 2020-02-23 14:28 | P.CONS ---
History of Present Illness - Reason for Consult Consult date: 02/23/20 Medical management hypertension and hyperlipidemia Requesting physician: Shadi Erickson - Chief Complaint Severe osteoarthritis of left hip, status post anterior approach arthroplas - History of Present Illness This is a 69-year-old female with past medical history of hypertension, hyperlipidemia, severe osteoarthritis of left hip-failed outpatient/conservative treatment, status post left total hip arthroplasty-anterior approach. Tolerated procedure well. Denies chest pain, palpitations or shortness of breath. Pain currently controlled. Review of Systems Constitutional: Denied any fatigue denied any fever. Cardio vascular: denied any chest pain, palpitations Gastrointestinal denied any nausea vomiting Pulmonary: Denied any shortness of breath cough Neurologic denied any new focal deficits ROS Statement: Those systems with pertinent positive or pertinent negative responses have been documented in the HPI. ROS Other: All systems not noted in ROS Statement are negative. Past Medical History Past Medical History: Hyperlipidemia, Hypertension, Osteoarthritis (OA) Additional Past Medical History / Comment(s): RT HIP OA. WEARS SUPPORT STOCKINGS. HEART MURMUR. History of Any Multi-Drug Resistant Organisms: None Reported Past Surgical History: Cholecystectomy Additional Past Surgical History / Comment(s): COLONOSCOPY Past Anesthesia/Blood Transfusion Reactions: No Reported Reaction Past Psychological History: No Psychological Hx Reported Smoking Status: Never smoker Past Alcohol Use History: None Reported Additional Past Alcohol Use History / Comment(s): SMOKED OCC FOR MANY YEARS, NONE SINCE 1996 EST Past Drug Use History: None Reported - Past Family History Mother Family Medical History: Cancer Medications and Allergies Home Medications Medication Instructions Recorded Confirmed Type Furosemide [Lasix] 20 mg PO DAILY 03/29/17 02/15/20 History Lisinopril [Prinivil] 20 mg PO BID 03/29/17 02/15/20 History Lovastatin [Mevacor] 40 mg PO BID 03/29/17 02/15/20 History Metoprolol Tartrate [Lopressor] 25 mg PO DAILY 03/29/17 02/15/20 History Calcium Carbonate [Calcium] 600 mg PO DAILY 02/15/20 02/15/20 History Ibuprofen [Motrin Ib] 200 - 600 mg PO DIRECTED PRN 02/15/20 02/15/20 History Potassium Chloride 20 meq PO DAILY 02/15/20 02/15/20 History Allergies Allergy/AdvReac Type Severity Reaction Status Date / Time No Known Allergies Allergy Verified 02/23/20 06:09 Physical Exam Vitals: Vital Signs Temp Pulse Pulse Resp BP Pulse Ox 02/23/20 10:46 53 L 18 02/23/20 10:30 97.7 F 54 L 18 149/74 99 02/23/20 10:17 53 L 18 140/66 97 02/23/20 10:02 50 L 18 136/70 95 02/23/20 09:47 52 L 18 134/64 96 02/23/20 09:40 97.5 F L 54 L 20 129/69 96 02/23/20 06:33 98.0 F 67 17 190/85 98 Intake and Output 02/22/20 02/23/20 02/23/20 22:59 06:59 14:59 Intake Total 200 1451 Output Total 250 Balance 200 1201 Intake: IV 200 1451 Output: Estimated Blood Loss 250 Other: Weight 89.9 kg 89.9 kg PHYSICAL EXAM: VITAL SIGNS: As above GENERAL: Sitting up in bed, no acute distress HEENT: Conjunctivae normal. eyes normal. NECK: No JVD. No thyroid enlargement. No LNs CARDIOVASCULAR: S1, S2 regular.. No murmur RESPIRATION: Breath sounds diminished in the bases. No rhonchi or crackles. No bronchial breathing. ABDOMEN: Soft, nontender . No guarding. no masses palpable. No ascites, No hepatosplenomegaly.Bowel sounds heard. LEGS: Left hip dressing clean dry and intact, minimal edema/ swelling . No calf tenderness, positive pulses PSYCHIATRY: Alert and oriented X3, mood and affect normal. NERVOUS SYSTEM: Cranial N 2-12 grossly normal. Moves all 4 limbs. Diffuse weakness No focal deficits. Strength and sensation grossly intact.. Skin: Warm and dry, no rash Lymphatic system. No LN neck axilla. Assessment and Plan Assessment: Severe left hip osteoarthritis, status post left total hip arthroplasty-anterior approach Asymptomatic bradycardia Hypertension Hyperlipidemia Plan: Continue on current medication regime ,monitoring and symptomatic treatment. Aggressive pulmonary toileting with incentive spirometer reinforced. Pain management/anticoagulation as per primary. PT/OT. All meds have been reviewed and resumed accordingly. Bradycardia, Reevaluate tomorrow for resuming beta job. Thank you Dr. Jurado for the consult. The impression and plan of care has been dictated as directed. : I performed a history and examination of this patient, discussed the same with the dictator. I agree with the dictator's note ,documented as a scribe. Any additional findings or plans will be noted.
[2020-02-23] MEDS: HYDROcodone/APAP 7.5-325MG 1 EACH TAB PO PRN (19:30)
[2020-02-23] MEDS: lisinopriL 20 MG TAB PO SCH (19:30)
[2020-02-23] MEDS: SENNOSIDES-DOCUSATE SODIUM 1 EACH TAB PO SCH (19:30)
[2020-02-24] MEDS: HYDROcodone/APAP 7.5-325MG 1 EACH TAB PO PRN ×3 (04:23→22:28)
[2020-02-24] MEDS: LACTATED RINGERS 1,000 ML IV SCH (06:05)
[2020-02-24] MEDS: lisinopriL 20 MG TAB PO SCH ×2 (08:23→20:23)
[2020-02-24] MEDS: POTASSIUM CHLORIDE ER 20 MEQ TAB.ER PO SCH (08:23)
[2020-02-24] MEDS: FUROSEMIDE 20 MG TAB PO SCH (08:23)
[2020-02-24] MEDS: FAMOTIDINE 20 MG TAB PO SCH (08:23)
[2020-02-24] MEDS: RIVAROXABAN 10 MG TAB PO SCH (08:23)
[2020-02-24] MEDS: METOPROLOL TARTRATE 25 MG TAB PO SCH (08:25)
[2020-02-24 08:45] LABS: African American GFR (CKD) >90 (>60 ml/min/1.73 sqM); Anion Gap 5 mmol/L; Basophils % (A) 0 %; Blood Urea Nitrogen 15 mg/dL (7-17); Calcium 8.7 mg/dL (8.4-10.2); Carbon Dioxide 28 mmol/L (22-30); Chloride 103 mmol/L (98-107); Eosinophils % (A) 0 %; Glucose 120 mg/dL (74-99); HCT 36.6 % (34.0-46.0); Lymphocytes # (A) 1.5 k/uL (1.0-4.8); Lymphocytes % (A) 13 %; MCH 31.9 pg (25.0-35.0); MCHC 31.7 g/dL (31.0-37.0); MCV 100.6 fL (80.0-100.0); Mean Platelet Volume 7.3; Monocytes # (A) 0.7 k/uL (0-1.0); Monocytes % (A) 6 %; Neutrophils # (A) 8.9 k/uL (1.3-7.7); Neutrophils % (A) 80 %; Non-African American GFR(CKD) 83 (>60 ml/min/1.73 sqM); Platelet Count 201 k/uL (150-450); Potassium 4.2 mmol/L (3.5-5.1); RBC 3.64 m/uL (3.80-5.40); RDW 13.1 % (11.5-15.5); Sodium 136 mmol/L (137-145); WBC 11.2 k/uL (3.8-10.6)
[2020-02-24 09:26] LABS: HGB 11.6 gm/dL (11.4-16.0)
--- NOTE | 2020-02-24 13:07 | P.PN ---
Subjective Progress Note Date: 02/24/20 Principal diagnosis: Status post left total hip arthroplasty Patient notes moderate left hip pain. She denies chest pain or shortness of breath. Objective - Vital Signs Vital signs: Vital Signs Temp 97.7 F 02/24/20 07:00 Pulse 65 02/24/20 07:00 Resp 18 02/24/20 07:00 BP 146/69 02/24/20 07:00 Pulse Ox 97 02/24/20 07:00 Intake & Output 02/23/20 02/24/20 02/24/20 18:59 06:59 18:59 Intake Total 2141 Output Total 251 2 Balance 1890 -2 Weight 89.9 kg Intake: IV 1451 Intake, IV Titration 150 Amount ceFAZolin 2 gm In Sodium 150 Chloride 0.9% 50 ml @ 100 mls/hr IVPB Q8H [facility] Rx#: [id number] Oral 540 Output: Stool 1 2 Estimated Blood Loss 250 Other: # Voids 1 - Exam Left hip dressing intact Homans negative left lower extremity Neurovascular exam intact left lower extremity - Labs CBC & Chem 7: 02/24/20 07:41 02/24/20 07:41 Labs: Abnormal Lab Results - Last 24 Hours (Table) 02/24/20 02/24/20 Range/Units 07:41 07:41 WBC 11.2 H (3.8-10.6) k/uL RBC 3.64 L (3.80-5.40) m/uL MCV 100.6 H (80.0-100.0) fL Neutrophils # 8.9 H (1.3-7.7) k/uL Sodium 136 L (137-145) mmol/L Glucose 120 H (74-99) mg/dL Assessment and Plan Assessment: Status post left total hip arthroplasty Plan: Continue anticoagulation. Continue therapy. Continue analgesia. Plan on discharge tomorrow. Time with Patient: Less than 30
--- NOTE | 2020-02-24 16:15 | P.PN ---
Subjective Progress Note Date: 02/24/20 This is a 69-year-old female with past medical history of hypertension, hyperlipidemia, severe osteoarthritis of left hip-failed outpatient/conservative treatment, status post left total hip arthroplasty-anterior approach. Tolerated procedure well. Denies chest pain, palpitations or shortness of breath. Pain currently controlled. 02/24/2020 significant clinical improvement. Participate with physical therapy, ambulating with walker, performed the stairs, tolerating exertion well. Pain controlled but complains of increased pain with exertion. Afebrile, mildly elevated WBC. Good diet intake with no nausea or vomiting. Passing flatus, no bowel movement. Denies chest pain, palpitations or shortness of breath. Denies lightheadedness, dizziness or focal deficits. Objective - Vital Signs Vital signs: Vital Signs Temp 97.7 F 02/24/20 07:00 Pulse 65 02/24/20 07:00 Resp 18 02/24/20 07:00 BP 146/69 02/24/20 07:00 Pulse Ox 97 02/24/20 07:00 Intake & Output 02/23/20 02/24/20 02/24/20 18:59 06:59 18:59 Intake Total 2141 Output Total 251 2 Balance 1890 -2 Weight 89.9 kg Intake: IV 1451 Intake, IV Titration 150 Amount ceFAZolin 2 gm In Sodium 150 Chloride 0.9% 50 ml @ 100 mls/hr IVPB Q8H [facility] Rx#: [id number] Oral 540 Output: Stool 1 2 Estimated Blood Loss 250 Other: # Voids 1 - Exam VITAL SIGNS: As above GENERAL: Sitting up in chair, no acute distress HEENT: Conjunctivae normal. eyes normal. Oral mucosa moist. NECK: No JVD. No thyroid enlargement. No LNs CARDIOVASCULAR: S1, S2 regular. No murmur RESPIRATION: Breath sounds diminished in the bases. No rhonchi or crackles. ABDOMEN: Soft, nontender . No guarding. no masses palpable. Positive Bowel sounds heard. LEGS: Left hip dressing clean dry and intact, minimal edema/ swelling . No calf tenderness, positive pulses PSYCHIATRY: Alert and oriented X3, mood and affect normal. NERVOUS SYSTEM: Cranial N 2-12 grossly normal. Moves all 4 limbs. No focal deficits. Strength and sensation grossly intact.. Skin: Warm and dry, no rash - Labs CBC & Chem 7: 02/24/20 07:41 02/24/20 07:41 Assessment and Plan Assessment: Severe left hip osteoarthritis, status post left total hip arthroplasty-anterior approach Asymptomatic bradycardia Hypertension Hyperlipidemia Plan: Continue on current medication regime ,monitoring and symptomatic treatment. Maintain aggressive pulmonary toileting with incentive spirometer reinforced. Pain management/anticoagulation as per primary. PT/OT. Medically cleared for discharge. Follow-up with PCP in one week. Thank you Dr. Jurado for the consult. The impression and plan of care has been dictated as directed. : I performed a history and examination of this patient, discussed the same with the dictator. I agree with the dictator's note ,documented as a scribe. Any additional findings or plans will be noted.
[2020-02-24] MEDS: HYDROmorphone 0.5 MG/0.5 ML SYRINGE IVP PRN (17:27)
[2020-02-24] MEDS: SENNOSIDES-DOCUSATE SODIUM 1 EACH TAB PO SCH (20:23)
[2020-02-25] MEDS: LACTATED RINGERS 1,000 ML IV SCH (06:21)
[2020-02-25] MEDS: HYDROcodone/APAP 7.5-325MG 1 EACH TAB PO PRN ×2 (06:23→12:55)
[2020-02-25 07:35] LABS: Basophils % (A) 0 %; Eosinophils # (A) 0.1 k/uL (0-0.7); Eosinophils % (A) 1 %; HCT 34.8 % (34.0-46.0); HGB 11.6 gm/dL (11.4-16.0); Lymphocytes # (A) 2.8 k/uL (1.0-4.8); Lymphocytes % (A) 29 %; MCH 33.2 pg (25.0-35.0); MCHC 33.2 g/dL (31.0-37.0); Mean Platelet Volume 7.4; Monocytes # (A) 0.6 k/uL (0-1.0); Monocytes % (A) 6 %; Neutrophils % (A) 62 %; Platelet Count 186 k/uL (150-450); RBC 3.48 m/uL (3.80-5.40); RDW 13.4 % (11.5-15.5); WBC 9.7 k/uL (3.8-10.6)
[2020-02-25 08:11] LABS: African American GFR (CKD) >90 (>60 ml/min/1.73 sqM); Anion Gap 4 mmol/L; Blood Urea Nitrogen 15 mg/dL (7-17); Calcium 8.4 mg/dL (8.4-10.2); Carbon Dioxide 30 mmol/L (22-30); Chloride 103 mmol/L (98-107); Glucose 97 mg/dL (74-99); Non-African American GFR(CKD) 85 (>60 ml/min/1.73 sqM); Potassium 3.9 mmol/L (3.5-5.1); Sodium 137 mmol/L (137-145)
[2020-02-25] MEDS: METOPROLOL TARTRATE 25 MG TAB PO SCH (08:26)
[2020-02-25] MEDS: POTASSIUM CHLORIDE ER 20 MEQ TAB.ER PO SCH (08:26)
[2020-02-25] MEDS: RIVAROXABAN 10 MG TAB PO SCH (08:27)
[2020-02-25] MEDS: FAMOTIDINE 20 MG TAB PO SCH (08:27)
[2020-02-25] MEDS: lisinopriL 20 MG TAB PO SCH (08:27)
[2020-02-25] MEDS: FUROSEMIDE 20 MG TAB PO SCH (08:27)
[2020-02-25 09:03] VITALS: BP 145/75; PULSE 71; RESP 18; TEMP 98.3
--- NOTE | 2020-02-25 11:32 | P.PN ---
Subjective Progress Note Date: 02/25/20 Principal diagnosis: status post right anterior total hip arthroplasty Patient evaluated today admits to, susan in her hospital chair. She has no acute complaints. She denies any chest pain or shortness of breath Objective - Vital Signs Vital signs: Vital Signs Temp 98.3 F 02/25/20 07:00 Pulse 71 02/25/20 07:00 Resp 18 02/25/20 07:00 BP 145/75 02/25/20 07:00 Pulse Ox 99 02/25/20 07:00 Intake & Output 02/24/20 02/25/20 02/25/20 18:59 06:59 18:59 Other: Voiding Method Toilet # Voids 3 2 - Exam Left lower extremity: Incision is clean, dry, and intact. The exofin fusion tape is in good condition. There is minimal soft tissue swelling and ecchymosis surrounding the medial and lateral aspects of the incision. Calf is soft, no tenderness with palpation. Plantar flexion, dorsiflexion, EHL, FHL are intact. Sensory exam to light touch throughout the extremity is intact, dorsal pedis pulses 2+. - Labs CBC & Chem 7: 02/25/20 06:48 02/25/20 06:48 Labs: Abnormal Lab Results - Last 24 Hours (Table) 02/25/20 Range/Units 06:48 RBC 3.48 L (3.80-5.40) m/uL Assessment and Plan Assessment: Status post right anterior left total hip arthroplasty Plan: Pain control, discharged home on oral medication GI and DVT prophylaxis,Eliquis 2.5 mg twice a day for 30 days wound care/icing elevating techniques discussed Home physical therapy and nursing after discharge Medical recommendations Discharged home today Time with Patient: Less than 30
--- NOTE | 2020-02-25 11:33 | P.DS ---
Providers Date of admission: 02/23/2020 Expected date of discharge: 02/25/20 Attending physician: Shadi Erickson Consults: 02/23/20 09:20 Consult Physician Routine Consulting Provider: Maico Maynard Reason/Comments: medical management Do you want consulting provider notified?: Yes Primary care physician: Maico Maynard Hospital Course: Date of admission: 02/23/2020 Date of discharge: 02/24/2020 Admission diagnosis: Status post direct anterior left total hip arthroplasty Discharge diagnosis: Same Attending physician: Dr. Erickson Surgical procedures: Direct anterior left total hip arthroplasty Brief history: Patient is a 69-year-old female with a history of progressive primary left hip osteoarthritis. At this point patient has failed conservative treatment measures and has opted to proceed with a elective direct anterior left total hip arthroplasty. Hospital course: Details of patient's surgery can be found in operative report. Patient tolerated the procedure well and was subsequently transported to orthopedic floor. Patient's orthopeidc and medical care was provided daily. Patient had daily laboratory tests performed for evaluation of overall blood counts. Patient had daily physical therapy to include strengthening range of motion as well as education with walker ambulation. Patient was treated with Xarelto for their postoperative DVT prophylaxis during their inpatient stay. Patient was noted to have a relatively uneventful postoperative course. Patient reported satisfactory pain control with oral pain medications by postoperative day 0. Patient showed satisfactory progress with physical therapy. Patient moved steadily through the program and had no difficulty meeting the goals by postoperative day 1. Given patient's otherwise satisfactory course and having met physical therapy goals, plan is to discharge patient home on postoperative day 1. Discharge condition/disposition: Patient will be discharged home in stable condition. Discharge medications: Instructions are given on resumption of patient's normal daily medications per primary care recommendation, in addition patient will be prescribed [place] 7.5 mg/325 mg, Colace 100 mg, Eliquis 2.5mg. Discharge instructions: 1. Wound care and infection precautions, keep incision dry and covered while showering, no lotions, creams, moisturizers. No soaking, tubs, pools, hottubs. Do not scrub over the incision. 2. Weight-bear as tolerated with walker / cane until follow-up. 3. Ice and elevate when necessary. Do not exceed 20 minutes per hour with ice pack. 4. Utilize compression sleeve until seen at first follow up appointment. 5. Visiting nursing care. 6. Home physical therap. 7. Pain meds and anticoagulants per prescription. 8. Pain medication has potential to cause constipation. Increase oral fluid and fiber intake. Contact primary care provider if you have not had a bowel movement within 48 hours after discharge 9. No anti-inflammatory medication until discussed at first post operative visit, this including Motrin, Aleve, Mobic, Diclofenac. 10. Follow up in office at 2 weeks postop with Theron Aldridge PA-C 11. Follow up with your primary care doctor 7-10 days after discharge. 12. Contact [facility] with any questions, . Procedures: direct anterior left total hip arthroplasty Patient Condition at Discharge: Good Plan - Discharge Summary Discharge Rx Participant: Yes New Discharge Prescriptions: New Docusate [Colace] 100 mg PO DAILY #30 capsule Apixaban [Eliquis] 2.5 mg PO BID #60 tab HYDROcodone/APAP 7.5-325MG [[place] 7.5] 1 - 2 each PO Q6HR PRN #28 tab PRN Reason: Pain No Action lisinopriL [Prinivil] 20 mg PO BID Metoprolol Tartrate [Lopressor] 25 mg PO DAILY Furosemide [Lasix] 20 mg PO DAILY Lovastatin [Mevacor] 40 mg PO BID Ibuprofen [Motrin Ib] 200 - 600 mg PO DIRECTED PRN PRN Reason: Pain Potassium Chloride 20 meq PO DAILY Calcium Carbonate [Calcium] 600 mg PO DAILY Discharge Medication List Furosemide [Lasix] 20 mg PO DAILY 03/29/17 [History] Lovastatin [Mevacor] 40 mg PO BID 03/29/17 [History] Metoprolol Tartrate [Lopressor] 25 mg PO DAILY 03/29/17 [History] lisinopriL [Prinivil] 20 mg PO BID 03/29/17 [History] Calcium Carbonate [Calcium] 600 mg PO DAILY 02/15/20 [History] Ibuprofen [Motrin Ib] 200 - 600 mg PO DIRECTED PRN 02/15/20 [History] Potassium Chloride 20 meq PO DAILY 02/15/20 [History] Apixaban [Eliquis] 2.5 mg PO BID #60 tab 02/25/20 [Rx] Docusate [Colace] 100 mg PO DAILY #30 capsule 02/25/20 [Rx] HYDROcodone/APAP 7.5-325MG [[place] 7.5] 1 - 2 each PO Q6HR PRN #28 tab 02/25/20 [Rx] Follow up Appointment(s)/Referral(s): [facility], [NON-STAFF] - As Needed Allen Aldridge PAC [PHYSICIAN [employer] TEAM MEMBER] - 03/09/20 3:30 pm Maico Maynard MD [Primary Care Provider] - 02/29/20 8:30 am Activity/Diet/Wound Care/Special Instructions: Orthopedic Discharge Instructions: 1. Wound care and infection precautions, keep incision dry and covered while showering, no lotions, creams, moisturizers. No soaking, pools, hot tubs. Do not scrub over incision. 2. Weight-bear as tolerated with walker / cane until follow-up. 3. Ice and elevate when necessary. Do not exceed 20 minutes per hour with ice pack. 4. Utilize compression sleeve until seen at first follow up appointment. 5. Pain meds and anticoagulants per prescription. 6. Pain medication has potential to cause constipation. Increase oral fluid and fiber intake. Contact primary care provider if you have not had a bowel movement within 48 hours after discharge. 7. No anti-inflammatory medication until discussed at first post operative visit, this including Motrin, Aleve, Mobic, Diclofenac. 8. Follow up in office at 2 weeks postop with Theron Aldridge PA-C 9. Follow up with your primary care doctor 7-10 days after discharge. 10. Contact [facility] with any questions, . Discharge Disposition: HOME WITH HOME HEALTH SERVICES
== END 2020-02-25 13:27 | disposition home health service (06) ==
LOC: OR 05:37 → 4SSUR 09:34 → OR 02-24 13:23 → 4SSUR 02-24 15:49
PROVIDERS: ADMIT Orthopaedic Surgery; ATTEND Orthopaedic Surgery
DX: M16.12 Unilateral primary osteoarthritis, left hip (principal); E78.00 Pure hypercholesterolemia, unspecified; E78.5 Hyperlipidemia, unspecified; I10 Essential (primary) hypertension; Z79.899 Other long term (current) drug therapy; Z90.49 Acquired absence of other specified parts of digestive tract; Z88.8 Allergy status to other drugs, medicaments and biological substances; Z91.040 Latex allergy status; Z80.9 Family history of malignant neoplasm, unspecified; R01.1 Cardiac murmur, unspecified; Z79.1 Long term (current) use of non-steroidal anti-inflammatories (NSAID); R00.1 Bradycardia, unspecified
CPT/HCPCS: 97116 ×2; 97110; 97161; 97535; 97165; 80048 ×2; 85025 ×2; 88300; 73501; 27130; G0378 ×2; C1776; J2250; J1100; J0690 ×2; J2405; J3010; J2704; J1170 ×2; 36415; 86850; 86900; 86901

== ENCOUNTER 2020-03-24 14:42 | Inpatient (IN) | payer MEDICARE ==
--- NOTE | 2020-03-24 15:02 | ED ---
General Adult HPI - General Chief complaint: Wound/Laceration Stated complaint: surgical site infection Time Seen by Provider: 03/24/20 14:48 Source: patient, RN notes reviewed Mode of arrival: ambulatory Limitations: no limitations - History of Present Illness Initial comments: 69-year-old female presents emergency Department with chief complaint of red ness, pain around her incision site on the left hip. Patient had surgery by Dr. Jurado one month ago. Patient states that she noticed some redness or last few days saw PCP and Saturday was placed on antibiotics and topical cream. She states that has greatly worsened. She states his skin aguilera and she has some discomfort. Patient states there is increasing redness. No reported fever. Patient states her hip otherwise is doing well denies any paresthesias. - Related Data Home Medications Medication Instructions Recorded Confirmed Furosemide [Lasix] 20 mg PO DAILY 03/29/17 02/15/20 Lovastatin [Mevacor] 40 mg PO BID 03/29/17 02/15/20 Metoprolol Tartrate [Lopressor] 25 mg PO DAILY 03/29/17 02/15/20 lisinopriL [Prinivil] 20 mg PO BID 03/29/17 02/15/20 Calcium Carbonate [Calcium] 600 mg PO DAILY 02/15/20 02/15/20 Ibuprofen [Motrin Ib] 200 - 600 mg PO DIRECTED PRN 02/15/20 02/15/20 Potassium Chloride 20 meq PO DAILY 02/15/20 02/15/20 Previous Rx's Medication Instructions Recorded Apixaban [Eliquis] 2.5 mg PO BID #60 tab 02/25/20 Docusate [Colace] 100 mg PO DAILY #30 capsule 02/25/20 HYDROcodone/APAP 7.5-325MG [[place] 1 - 2 each PO Q6HR PRN #28 tab 02/25/20 7.5] Allergies Allergy/AdvReac Type Severity Reaction Status Date / Time No Known Allergies Allergy Verified 03/24/20 14:45 Review of Systems ROS Statement: Those systems with pertinent positive or pertinent negative responses have been documented in the HPI. ROS Other: All systems not noted in ROS Statement are negative. Past Medical History Past Medical History: Hyperlipidemia, Hypertension, Osteoarthritis (OA) Additional Past Medical History / Comment(s): RT HIP OA. WEARS SUPPORT STOCKINGS. HEART MURMUR. History of Any Multi-Drug Resistant Organisms: None Reported Past Surgical History: Cholecystectomy, Joint Replacement Additional Past Surgical History / Comment(s): COLONOSCOPY Past Anesthesia/Blood Transfusion Reactions: No Reported Reaction Past Psychological History: No Psychological Hx Reported Smoking Status: Never smoker Past Alcohol Use History: None Reported Past Drug Use History: None Reported - Past Family History Mother Family Medical History: Cancer General Exam Limitations: no limitations General appearance: alert, in no apparent distress Head exam: Present: atraumatic, normocephalic, normal inspection Neck exam: Present: normal inspection, full ROM. Absent: tenderness, meningismus, lymphadenopathy Respiratory exam: Present: normal lung sounds bilaterally. Absent: respiratory distress, wheezes, rales, rhonchi, stridor Cardiovascular Exam: Present: regular rate, normal rhythm, normal heart sounds. Absent: systolic murmur, diastolic murmur, rubs, gallop, clicks Extremities exam: Present: other (Left hip there is an incision site noted, there is significant erythema increased warmth with palpation around this is site and tracking towards the crest) Neurological exam: Present: alert, oriented X3, CN II-XII intact, reflexes normal. Absent: motor sensory deficit Skin exam: Present: warm, dry, intact, normal color. Absent: rash Course Vital Signs 03/24/20 14:45 Temperature 98.3 F Pulse Rate 102 H Respiratory 18 Rate Blood Pressure 159/84 O2 Sat by Pulse 98 Oximetry Medical Decision Making - Medical Decision Making Case discussed with Theron Aldridge, who evaluated the patient in the emergency department. Patient will be admitted to Dr. Erickson. Patient was started on antibiotics. Disposition Clinical Impression: Cellulitis of left hip, Status post left hip replacement Disposition: ADMITTED IP TO THIS HOSP Condition: Fair Referrals: Isrrael Murrieta Jr, [Doctor of Osteopathic Medicine] - 1-2 days
[2020-03-24] MEDS ORDERED: VANCOMYCIN IV PER PHARMACY 1 EACH MISC MISCELLANE PRN (15:31)
[2020-03-24] MEDS ORDERED: cefTRIAXone IN SWFI 1,000 MG/10 ML SYRINGE IVP STA (15:31)
[2020-03-24] MEDS ORDERED: ACETAMINOPHEN TAB 325 MG TAB PO PRN (15:32)
[2020-03-24] MEDS ORDERED: ONDANSETRON 4 MG/2 ML VIAL IVP PRN (15:32)
[2020-03-24] MEDS ORDERED: HYDROcodone/APAP 5-325MG 1 EACH TAB PO PRN (15:32)
--- NOTE | 2020-03-24 15:50 | P.HPOR ---
History of Present Illness H&P Date: 03/24/20 Chief Complaint: Left hip periprosthetic infection, left hip cellulitis Patient is a 69-year-old female who presented to [facility] emergency room today with regards to an infection involving her left lower extremity. Patient is 1 month out from a direct anterior left total hip arthroplasty with Dr. Erickson. She states that Saturday she woke up with significant redness involving the incision, she was seen by her primary care doctor and started on oral antibiotics. It is progressively worsened to the week, her primary care doctor recommended evaluation of the hospital. I was contacted by the emergency room staff regarding the patient, I then reported to the hospital to observe the patient myself. She was evaluated today at bedside, she is resting comfortably. Most discomfort is over the incision and just lateral to it. She states she's felt more tired o luca the last week or so. She denies any fevers or chills at this time. She has no other orthopedic complaints. I had seen the patient 2 weeks postop she was doing very well. Review of Systems Constitutional: Reports as per HPI Past Medical History Past Medical History: Hyperlipidemia, Hypertension, Osteoarthritis (OA) Additional Past Medical History / Comment(s): RT HIP OA. WEARS SUPPORT STOCKINGS. HEART MURMUR. History of Any Multi-Drug Resistant Organisms: None Reported Past Surgical History: Cholecystectomy, Joint Replacement Additional Past Surgical History / Comment(s): COLONOSCOPY Past Anesthesia/Blood Transfusion Reactions: No Reported Reaction Past Psychological History: No Psychological Hx Reported Smoking Status: Never smoker Past Alcohol Use History: None Reported Past Drug Use History: None Reported - Past Family History Mother Family Medical History: Cancer Medications and Allergies Home Medications Medication Instructions Recorded Confirmed Type Furosemide [Lasix] 20 mg PO DAILY 03/29/17 02/15/20 History Lovastatin [Mevacor] 40 mg PO BID 03/29/17 02/15/20 History Metoprolol Tartrate [Lopressor] 25 mg PO DAILY 03/29/17 02/15/20 History lisinopriL [Prinivil] 20 mg PO BID 03/29/17 02/15/20 History Calcium Carbonate [Calcium] 600 mg PO DAILY 02/15/20 02/15/20 History Ibuprofen [Motrin Ib] 200 - 600 mg PO DIRECTED PRN 02/15/20 02/15/20 History Potassium Chloride 20 meq PO DAILY 02/15/20 02/15/20 History Apixaban [Eliquis] 2.5 mg PO BID #60 tab 02/25/20 Rx Docusate [Colace] 100 mg PO DAILY #30 capsule 02/25/20 Rx HYDROcodone/APAP 7.5-325MG [Pepin 1 - 2 each PO Q6HR PRN #28 tab 02/25/20 Rx 7.5] Allergies Allergy/AdvReac Type Severity Reaction Status Date / Time No Known Allergies Allergy Verified 03/24/20 14:45 Physical Examination Left lower extremity: Severe redness noted over the anterior and lateral aspect of the upper left lower extremity. There is obvious soft tissue swelling in the area. There is no active drainage visualized from the incision. There is a small scab noted at midline and the incision. She's very tender with palpation over the incision and just lateral to it. range of motion of the hip reproduces no significant pain. She is able to straight leg raise. She is able to bend and extend at the knee with no pain. She denies any low back pain at this time. Calf is soft, no tenderness with palpation. Plantar flexion, EHL, FHL are intact. dorsalis pedis pulses 2+. Assessment and Plan Assessment: Left hip cellulitis Left periprosthetic hip infection History of direct anterior left total hip arthroplasty Plan: I was able to discuss the case, including both physical exam findings and imaging studies and my attending Dr. Erickson. Plan is to proceed with an irrigation and debridement, washout, polyethylene liner and head exchange of left hip. We will plan to proceed with this on 03/25/2020. Consults were placed for both internal medicine and infectious disease Anticipate inpatient hospital stay for the next 3-5 days for IV antibiotics. Cultures will be taken at surgery Nothing by mouth after midnight Pain control Further recommendations to follow Time with Patient: Less than 30
[2020-03-24 15:52] LABS: Basophils % (A) 0 %; Eosinophils # (A) 0.2 k/uL (0-0.7); Eosinophils % (A) 2 %; HCT 35.9 % (34.0-46.0); HGB 11.6 gm/dL (11.4-16.0); Lymphocytes % (A) 11 %; MCH 31.3 pg (25.0-35.0); MCHC 32.4 g/dL (31.0-37.0); MCV 96.8 fL (80.0-100.0); Mean Platelet Volume 7.4; Monocytes # (A) 0.5 k/uL (0-1.0); Monocytes % (A) 5 %; Neutrophils # (A) 7.8 k/uL (1.3-7.7); Neutrophils % (A) 81 %; Platelet Count 260 k/uL (150-450); RDW 13.1 % (11.5-15.5); WBC 9.6 k/uL (3.8-10.6)
[2020-03-24 16:00] LABS: Partial Thromboplastin Time 24.8 sec (22.0-30.0); Prothrombin Time 10.4 sec (9.0-12.0)
[2020-03-24] MEDS ORDERED: VANCOMYCIN 1,500 MG in SODIUM CHLORIDE 0.9% 250 ML IVPB ONE (16:00)
[2020-03-24 16:08] LABS: Albumin 3.6 g/dL (3.5-5.0); Calcium 8.7 mg/dL (8.4-10.2); Potassium 3.8 mmol/L (3.5-5.1); Total Bilirubin 0.6 mg/dL (0.2-1.3); Total Protein 6.6 g/dL (6.3-8.2)
[2020-03-24 16:23] LABS: C Reactive Protein 139.8 mg/L (<10.0)
--- NOTE | 2020-03-24 22:57 | P.CONS ---
History of Present Illness - Reason for Consult Consult date: 03/24/20 Left thigh cellulitis Requesting physician: Moshe Disla - Chief Complaint Left thigh swelling and redness x 4 days - History of Present Illness Patient is a 69-year-old male who is a status post left hip replacement in the lower portion about a month ago, patient did well postoperatively until 4 days ago on Saturday when she noticed her left anterior thigh was swollen and red and the patient did have mild aching pain, patient subsequently was evaluated by the primary care physician and the patient was started on oral Bactrim DS for the patient to follow up on 3 days however the patient did have progressive worsening of the left anterior thigh swelling and redness, patient also have her Dilantin pain intensity is about 5 foot 10 and no radiation and patient denies any worsening pain on walking or putting pressure on that hip, patient did have some chills but denies high-grade fever with these symptoms the patient presented to [facility] ER the patient was evaluated by the physician on arrival to the patient was afebrile patient did have a normal white count however did have significantly elevated sed rate and CRP patient has been treated with Hospital with left thigh cellulitis patient had been evaluated by orthopedic surgery and is scheduled for left hip washout in the morning patient was started on vancomycin and infectious disease was consulted for further management of antibiotic therapy Review of Systems Positive point has been mentioned in the HPI rest of the systems are negative Past Medical History Past Medical History: Hyperlipidemia, Hypertension, Osteoarthritis (OA) Additional Past Medical History / Comment(s): RT HIP OA. WEARS SUPPORT STOCKINGS. HEART MURMUR. History of Any Multi-Drug Resistant Organisms: None Reported Past Surgical History: Cholecystectomy, Joint Replacement Additional Past Surgical History / Comment(s): COLONOSCOPY Past Anesthesia/Blood Transfusion Reactions: No Reported Reaction Past Psychological History: No Psychological Hx Reported Smoking Status: Never smoker Past Alcohol Use History: None Reported Past Drug Use History: None Reported - Past Family History Mother Family Medical History: Cancer Medications and Allergies Home Medications Medication Instructions Recorded Confirmed Type Furosemide [Lasix] 20 mg PO DAILY 03/29/17 03/24/20 History Lovastatin [Mevacor] 40 mg PO BID 03/29/17 03/24/20 History Metoprolol Tartrate [Lopressor] 25 mg PO DAILY 03/29/17 03/24/20 History lisinopriL [Prinivil] 20 mg PO BID 03/29/17 03/24/20 History Calcium Carbonate [Calcium] 600 mg PO DAILY 02/15/20 03/24/20 History Potassium Chloride 20 meq PO DAILY 02/15/20 03/24/20 History Apixaban [Eliquis] 2.5 mg PO BID #60 tab 02/25/20 03/24/20 Rx Sulfamethoxazole/Trimethoprim 1 tab PO BID 03/24/20 03/24/20 History [Sulfamethoxazole-Tmp Ds Tablet] Allergies Allergy/AdvReac Type Severity Reaction Status Date / Time No Known Allergies Allergy Verified 03/24/20 15:59 Physical Exam Vitals: Vital Signs Temp Pulse Resp BP Pulse Ox 03/24/20 16:01 98.0 F 89 18 141/77 98 03/24/20 14:45 98.3 F 102 H 18 159/84 98 Intake and Output 03/24/20 03/24/20 03/24/20 06:59 14:59 22:59 Other: Weight 85.275 kg GENERAL DESCRIPTION: An elderly female lying in bed, no distress. No tachypnea or accessory muscle of respiration use. HEENT: Shows Pallor , no scleral icterus. Oral mucous membrane is dry. No pharyngeal erythema or thrush NECK: Trachea central, no thyromegaly. LUNGS: Unlabored breathing. Clear to auscultation anteriorly. No wheeze or crackle. HEART: S1, S2, regular rate and rhythm. No loud murmur ABDOMEN: Soft, no tenderness , guarding or rigidity, no organomegaly EXTREMITIES: Left thigh anteriorly with significant swelling or redness and warmth to touch no drainage SKIN: No rash, no masses palpable. NEUROLOGICAL: The patient is awake, alert, oriented x3, mood and affect normal. Results CBC & Chem 7: 03/24/20 15:25 03/24/20 15:25 Labs: Abnormal Lab Results - Last 24 Hours (Table) 03/24/20 03/24/20 Range/Units 15:25 15:25 RBC 3.70 L (3.80-5.40) m/uL Neutrophils # 7.8 H (1.3-7.7) k/uL Sodium 135 L (137-145) mmol/L Glucose 112 H (74-99) mg/dL AST 58 H (14-36) U/L C-Reactive Protein 139.8 H (<10.0) mg/L Assessment and Plan Assessment: 1- patient presented to hospital with left anterior thigh cellulitis in this patient who recently did have left hip replacement anterior approach failing outpatient oral Bactrim DS therapy would be to call for the gram-positive skin jose armando suggestive and the mass into the likely pathogen and elevating surgical debridement to see the depth of this infection (1) Failure of outpatient treatment Current Visit: Yes Status: Acute Code(s): Z78.9 - OTHER SPECIFIED HEALTH STATUS SNOMED Code(s): 684198834 (2) Cellulitis of left hip Current Visit: Yes Status: Acute Code(s): L03.116 - CELLULITIS OF LEFT LOWER LIMB SNOMED Code(s): 21851232927692633 Plan: 1- marked the area of the redness 2-await surgical debridement and deep cultures 3-Vancomycin pharmacy to dose target trough of 15 while watching her kidney function and Vanco trough closely We will follow on clinical condition and cultures to further adjust medication if needed Thank you for this consultation will follow this patient with you Time with Patient: Greater than 30
[2020-03-25] MEDS ORDERED: ONDANSETRON 4 MG/2 ML VIAL ONE (06:04)
[2020-03-25] MEDS ORDERED: HYDROmorphone (PF) 1 MG/ML ONE (06:04)
[2020-03-25] MEDS ORDERED: PROPOFOL 10 MG/ML 20 ML VIAL IV ONE (06:04)
[2020-03-25] MEDS ORDERED: ROCURONIUM 10 MG/ML (5 ML VIAL) IV ONE (06:04)
[2020-03-25] MEDS ORDERED: PHENYLEPHRINE-0.9% NACL SYG 1 MG/10 ML SYRINGE ONE (06:04)
[2020-03-25] MEDS ORDERED: GLYCOPYRROLATE 0.2 MG/ML 2 ML VIAL ONE (06:04)
[2020-03-25] MEDS ORDERED: MIDAZOLAM 2 MG/2 ML VIAL ONE (06:04)
[2020-03-25] MEDS ORDERED: LIDOCAINE 1% INJ 10MG/ML (20 ML MDV) ONE (06:04)
[2020-03-25] MEDS ORDERED: fentaNYL (PF) 50 MCG/ML 2 ML AMP ONE (06:04)
[2020-03-25] MEDS ORDERED: NEOSTIGMINE 1 MG/ML 10 ML VIAL ONE (06:04)
[2020-03-25] MEDS ORDERED: IV FLUID CONTINUATION 1,000 ML IV ONE (06:04)
[2020-03-25] MEDS ORDERED: SUCCINYLCHOLINE CHLORIDE 100 MG/5 ML SYR IV ONE (06:04)
[2020-03-25] MEDS ORDERED: ceFAZolin 3,000 MG in SODIUM CHLORIDE 0.9% IRRIGATIO 3,000 ML IRRIGATION ONE (06:35)
[2020-03-25] MEDS ORDERED: LACTATED RINGERS 1,000 ML IV ONE (07:08)
[2020-03-25] MEDS ORDERED: NALOXONE 0.4 MG/ML 1 ML VIAL IV PRN (07:29)
[2020-03-25] MEDS ORDERED: traMADol 50 MG TAB PO PRN (07:31)
[2020-03-25] MEDS ORDERED: MAGNESIUM HYDROXIDE 2,400 MG/10 ML CUP PO PRN (07:31)
[2020-03-25] MEDS ORDERED: ONDANSETRON 4 MG/2 ML VIAL IVP PRN (07:31)
--- NOTE | 2020-03-25 07:53 | P.OP ---
Date of Procedure: 03/25/20 Preoperative Diagnosis: left hip infection status post total hip arthroplasty Postoperative Diagnosis: same Procedure(s) Performed: incision and drainage/irrigation and debridement left total hip arthroplasty with polyethylene exchange and femoral head exchange Implants: 54 mm neutral polyethylene liner, 36+1.5 cobalt chrome femoral head Anesthesia: DANITA Surgeon: Shadi Erickson Aircraft Accessories Mechanic #1: Allen Aldridge Estimated Blood Loss (ml): 150 Pathology: other (superficial and deep cultures) Condition: stable Disposition: PACU Indications for Procedure: The patient is a 69-year-old female who underwent a left total hip arthroplasty 4 weeks ago presents with a 3 day history of increasing redness and pain involving her left hip. Clinically she was noted of significant cellulitis. A discussion of the risks and benefits of operative intervention was made with patient and her family. She opted to proceed. Risks of procedure to include persistence of infection and possible need for subsequent procedures was discus sed. informed consent was obtained. Operative Findings: as below Description of Procedure: the patient was brought to the operating room, and after induction general anesthesia was placed supine on the Sonya table. after induction of general anesthesia, the left lower extremity was prepped and draped in normal fashion. the previous 10 cm anterior incision was utilized. Skin was incised sharply. Subcutaneous tissues were divided sharply. There was significant subcutaneous purulence. Cultures were obtained. the underlying fascia was felt to be intact. pulsatile lavage was then utilized. I then changed gloves and pulsatile lavage along with suction. The fascia was opened. Blunt dissection was then made down to level of the pseudocapsule. This was excised. There was some serosanguineous fluid in the joint. Deep cultures were obtained. The head was extracted along with the polyethylene liner. Pulsatile lavage was again utiliz ed. The subcutaneous tissues were then debrided sharply with a scalpel removing the wound edges. The fascia was closed with running 0 Vicryl suture. a drain was placed in the subcutaneous layer. The subcutaneous tissues reapproximated interrupted 2-0 Vicryl sutures. Skin was reapproximated with simple 3-0 Prolene suture. A sterile dressing was applied. The patient was then awoken from [facility] anesthesia and transferred to recovery room in fair condition. Blood loss was estimated at 150 mL. No complications were incurred. Sponge and needle counts were correct at the end the case. Theron BARTHOLOMEW assisted during the major components the case to include positioning, exposure, debridement, and closure.
[2020-03-25] MEDS: HYDROmorphone 1 MG/ML 1 ML SYRINGE IVP ONE ×2 (08:13→08:27)
--- NOTE | 2020-03-25 08:18 | XR ---
EXAMINATION TYPE: XR Hip Limited LT DATE OF EXAM: 03/25/2020 COMPARISON: NONE HISTORY: Postop TECHNIQUE: One view submitted. FINDINGS: There is postsurgical change in near anatomic alignment. There is soft tissue edema and emphysema. IMPRESSION: 1. Postoperative change. Appears in near-anatomic alignment.
[2020-03-25] MEDS ORDERED: PANTOPRAZOLE 40 MG/10 ML VIAL IVP SCH (09:15)
[2020-03-25] MEDS: METOPROLOL TARTRATE 25 MG TAB PO SCH (09:22)
[2020-03-25] MEDS: lisinopriL 20 MG TAB PO SCH ×2 (09:22→20:17)
[2020-03-25] MEDS: FUROSEMIDE 20 MG TAB PO SCH (09:22)
[2020-03-25] MEDS: POTASSIUM CHLORIDE ER 20 MEQ TAB.ER PO SCH (09:22)
[2020-03-25] MEDS: HYDROcodone/APAP 5-325MG 1 EACH TAB PO PRN (11:22)
[2020-03-25] MEDS ORDERED: MIDAZOLAM 2 MG/2 ML VIAL IVP ONE (12:44)
[2020-03-25] MEDS ORDERED: fentaNYL (PF) 50 MCG/ML 2 ML AMP IVP ONE (12:44)
[2020-03-25] MEDS ORDERED: ONDANSETRON 4 MG/2 ML VIAL IVP ONE (12:44)
[2020-03-25] MEDS: VANCOMYCIN 1,500 MG in SODIUM CHLORIDE 0.9% 250 ML IVPB SCH (13:04)
[2020-03-25] MEDS: HYDROmorphone 0.5 MG/0.5 ML SYRINGE IVP PRN ×2 (16:14→23:31)
--- NOTE | 2020-03-25 16:14 | P.CONS ---
History of Present Illness - Reason for Consult Consult date: 03/25/20 Left hip cellulitis, recent left hip replacement Requesting physician: Shadi Erickson - Chief Complaint incr redness, edema, tenderness of left thigh - History of Present Illness This is a 69-year-old female with past medical history of hypertension, hyperlipidemia, recent anterior left total hip arthroplasty admitted with left anterior thigh cellulitis, failed outpatient treatment. C-reactive protein 139.8. Underwent surgical debridement, with deep cultures, with polyethylene exchange and femoral head exchange, tolerated procedure well. Maintained on vancomycin as per ID. afebrile, normal WBC. Blood pressure controlled. Reports tenderness, pain currently controlled. Passing flatus. Denies nausea vomiting or diarrhea. Denies chest pain, palpitations or shortness of breath. Review of Systems ROS Statement: Those systems with pertinent positive or pertinent negative responses have been documented in the HPI. ROS Other: All systems not noted in ROS Statement are negative. Past Medical History Past Medical History: Hyperlipidemia, Hypertension, Osteoarthritis (OA) Additional Past Medical History / Comment(s): RT HIP OA. WEARS SUPPORT STOCKINGS. HEART MURMUR. History of Any Multi-Drug Resistant Organisms: None Reported Past Surgical History: Cholecystectomy, Joint Replacement Additional Past Surgical History / Comment(s): COLONOSCOPY Past Anesthesia/Blood Transfusion Reactions: No Reported Reaction Past Psychological History: No Psychological Hx Reported Smoking Status: Never smoker Past Alcohol Use History: None Reported Past Drug Use History: None Reported - Past Family History Mother Family Medical History: Cancer Medications and Allergies Home Medications Medication Instructions Recorded Confirmed Type Furosemide [Lasix] 20 mg PO DAILY 03/29/17 03/24/20 History Lovastatin [Mevacor] 40 mg PO BID 03/29/17 03/24/20 History Metoprolol Tartrate [Lopressor] 25 mg PO DAILY 03/29/17 03/24/20 History lisinopriL [Prinivil] 20 mg PO BID 03/29/17 03/24/20 History Calcium Carbonate [Calcium] 600 mg PO DAILY 02/15/20 03/24/20 History Potassium Chloride 20 meq PO DAILY 02/15/20 03/24/20 History Apixaban [Eliquis] 2.5 mg PO BID #60 tab 02/25/20 03/24/20 Rx Sulfamethoxazole/Trimethoprim 1 tab PO BID 03/24/20 03/24/20 History [Sulfamethoxazole-Tmp Ds Tablet] Allergies Allergy/AdvReac Type Severity Reaction Status Date / Time No Known Allergies Allergy Verified 03/24/20 15:59 Physical Exam Vitals: Vital Signs Temp Pulse Pulse Pulse Resp BP BP 03/25/20 08:45 90 16 132/64 03/25/20 08:34 90 16 136/65 03/25/20 08:16 91 16 154/74 03/25/20 08:00 97 16 156/75 03/25/20 07:48 97.0 F L 106 H 16 159/76 03/25/20 01:32 98.3 F 74 137/68 03/24/20 16:30 98.1 F 104 H 20 156/78 03/24/20 16:01 98.0 F 89 18 141/77 03/24/20 15:44 98.3 F 82 16 160/82 03/24/20 14:45 98.3 F 102 H 18 159/84 Pulse Ox 03/25/20 08:45 100 03/25/20 08:34 100 03/25/20 08:16 100 03/25/20 08:00 100 03/25/20 07:48 98 03/25/20 01:32 96 03/24/20 16:30 98 03/24/20 16:01 98 03/24/20 15:44 98 03/24/20 14:45 98 Intake and Output 03/24/20 03/25/20 03/25/20 22:59 06:59 14:59 Intake Total 901 600 Output Total 150 Balance 901 450 Intake: IV 901 600 Output: Estimated Blood Loss 150 Other: Voiding Method Toilet Toilet Weight 85.275 kg VITAL SIGNS: As above GENERAL: Sitting up in chair, no acute distress HEENT: Conjunctivae normal. eyes normal. Oral mucosa moist. NECK: No JVD. No thyroid enlargement. No LNs CARDIOVASCULAR: S1, S2 regular. No murmur RESPIRATION: Breath sounds diminished in the bases. No rhonchi or crackles. ABDOMEN: Soft, nontender . No guarding. no masses palpable. Positive Bowel s ounds heard. LEGS: Left hip dressing clean dry and intact, YOLIS present with sanguinous drainage. No calf tenderness, positive pulses PSYCHIATRY: Alert and oriented X3, mood and affect normal. NERVOUS SYSTEM: Cranial N 2-12 grossly normal. Moves all 4 limbs. No focal deficits. Strength and sensation grossly intact.. Skin: Warm and dry, no rash Results CBC & Chem 7: 03/24/20 15:25 03/24/20 15:25 Labs: Abnormal Lab Results - Last 24 Hours (Table) 03/24/20 03/24/20 03/24/20 Range/Units 15:25 15:25 15:25 RBC 3.70 L (3.80-5.40) m/uL Neutrophils # 7.8 H (1.3-7.7) k/uL ESR 101 H (0-20) mm/hr Sodium 135 L (137-145) mmol/L Glucose 112 H (74-99) mg/dL AST 58 H (14-36) U/L C-Reactive Protein 139.8 H (<10.0) mg/L Assessment and Plan Assessment: Cellulitis left hip in a patient with recent left total hip arthroplasty-anterior approach , failed outpatient treatment, status post I&D with polyethylene exchange and femoral head exchange, Hypertension Hyperlipidemia Plan: Continue current medication regime ,monitoring and symptomatic treatment. Antibiotics as per ID, cultures pending. Home meds have been reviewed and resumed accordingly. PT. Aggressive pulmonary toileting with incentive spirometer reinforced. Thank you Dr. Jurado for the consult. The impression and plan of care has been dictated as directed. : I performed a history and examination of this patient, discussed the same with the dictator. I agree with the dictator's note ,documented as a scribe. Any additional findings or plans will be noted.
[2020-03-25] MEDS ORDERED: VANCOMYCIN 1,500 MG in SODIUM CHLORIDE 0.9% 250 ML IVPB SCH (18:00)
[2020-03-25] MEDS: ENOXAPARIN 40 MG/0.4 ML SYRINGE SQ SCH (20:17)
[2020-03-25] MEDS: SENNOSIDES-DOCUSATE SODIUM 1 EACH TAB PO SCH (20:17)
[2020-03-25] MEDS: ATORVASTATIN 10 MG TAB PO SCH (20:17)
[2020-03-25] MEDS ORDERED: HYDROmorphone 0.5 MG/0.5 ML SYRINGE IVP PRN (21:48)
[2020-03-25] MEDS: LACTATED RINGERS 1,000 ML IV SCH (22:03)
--- NOTE | 2020-03-25 22:11 | PN ---
PROGRESS NOTE DATE OF SERVICE: 03/25/2020 REASON FOR FOLLOWUP: Left hip septic arthritis and cellulitis. INTERVAL HISTORY: The patient is currently afebrile. The patient is status post I and D of the left hip and polyethylene exchange. The culture is currently pending. The patient did have pain post surgery. Denies having any chest pain, shortness of breath or cough. No nausea, vomiting and no diarrhea. PHYSICAL EXAMINATION: Blood pressure 155/57 with a pulse of 92, temperature 98. She is 99% on room air. General description is an elderly female lying in bed in no distress. Respiratory system: Unlabored breathing, clear to auscultation anteriorly. Heart S1, S2. Regular rate and rhythm. Abdomen soft, no tenderness. Extremities, no edema of the feet. LABS: Cultures currently pending. DIAGNOSTIC IMPRESSION AND PLAN: Patient with left hip septic arthritis, status post I and D and polyethylene exchange. Cultures will be followed. The patient is covered with vancomycin, to continue. She will need a PICC line and outpatient antibiotic therapy. Continue supportive care. MMODL / RUBINAN: [id number] /
[2020-03-26] MEDS: HYDROcodone/APAP 5-325MG 1 EACH TAB PO PRN ×3 (03:39→20:19)
[2020-03-26 07:54] LABS: Basophils % (A) 0 %; Eosinophils # (A) 0.1 k/uL (0-0.7); Eosinophils % (A) 1 %; HCT 28.3 % (34.0-46.0); Hypochromasia Slight; Lymphocytes # (A) 1.2 k/uL (1.0-4.8); Lymphocytes % (A) 12 %; MCHC 30.9 g/dL (31.0-37.0); MCV 100.4 fL (80.0-100.0); Mean Platelet Volume 7.5; Monocytes # (A) 0.6 k/uL (0-1.0); Monocytes % (A) 6 %; Neutrophils # (A) 7.8 k/uL (1.3-7.7); Neutrophils % (A) 78 %; Platelet Count 234 k/uL (150-450); RBC 2.82 m/uL (3.80-5.40); RDW 13.1 % (11.5-15.5); WBC 9.9 k/uL (3.8-10.6)
[2020-03-26 07:58] LABS: HGB 8.7 gm/dL (11.4-16.0)
[2020-03-26] MEDS: lisinopriL 20 MG TAB PO SCH ×2 (09:58→20:19)
[2020-03-26] MEDS: ATORVASTATIN 10 MG TAB PO SCH ×2 (09:58→20:19)
[2020-03-26] MEDS: FUROSEMIDE 20 MG TAB PO SCH (09:58)
[2020-03-26] MEDS: CALCIUM CARBONATE 500 MG CHEWABLE PO SCH (09:58)
[2020-03-26] MEDS: PANTOPRAZOLE 40 MG TABLET PO SCH (09:58)
[2020-03-26] MEDS: ENOXAPARIN 40 MG/0.4 ML SYRINGE SQ SCH (09:58)
[2020-03-26] MEDS: POTASSIUM CHLORIDE ER 20 MEQ TAB.ER PO SCH (09:58)
[2020-03-26] MEDS: METOPROLOL TARTRATE 25 MG TAB PO SCH (09:58)
--- NOTE | 2020-03-26 10:55 | P.PN ---
Subjective Progress Note Date: 03/26/20 Principal diagnosis: Left hip cellulitis, recent left hip replacement 03/26/2020 69-year-old patient sitting up in bed with no complaints at this time. Status postop day 1 for I&D with irrigation and drainage of left total hip arthroplasty with polyethylene exchange and femoral head exchange. She is currently on room air with oxygen saturation of 98%, she is afebrile with a t emperature of 98.2 orally, heart rate is sinus rhythm at 86, respiratory rate is 16, blood pressure 134/80. Today's lab work CBC white blood cell count 9.9, hemoglobin of 8.7, hematocrit of 28.3. Today's chemistry and a creatinine of 0.88, and a GFR of 67. Discussed with the patient of the possibility of long- term IV antibiotics and the potential need of PICC line insertion before discharge. Currently is on IV vancomycin for antibiotic coverage. Pain control with Russell, hydromorphone, tramadol, and acetaminophen. Objective - Vital Signs Vital signs: Vital Signs Temp 98.2 F 03/26/20 07:23 Pulse 86 03/26/20 08:00 Resp 16 03/26/20 08:00 BP 134/80 03/26/20 07:23 Pulse Ox 98 03/26/20 07:23 Intake & Output 03/25/20 03/26/20 03/26/20 18:59 06:59 18:59 Intake Total 1560 Output Total 150 50 Balance 1410 -50 Intake: IV 600 Oral 960 Output: Drainage 50 Left Hip 50 Estimated Blood Loss 150 Other: Voiding Method Toilet Toilet # Voids 3 - Exam GENERAL: Well-appearing, well-nourished and in no acute distress. HEAD: Atraumatic, normocephalic. EYES: Pupils equal round and reactive to light, extraocular movements intact, sclera anicteric, conjunctiva are normal. ENT:nares patent, oropharynx clear without exudates. Moist mucous membranes. NECK: Normal range of motion, supple without lymphadenopathy or JVD, no thyromegaly LUNGS: Breath sounds clear to auscultation bilaterally and equal. No wheezes rales or rhonchi. HEART: Regular rate and rhythm without murmurs, rubs or gallops.S1S2 Normal ABDOMEN: Soft, nontender, normoactive bowel sounds. No guarding, no rebound. No masses appreciated. EXTREMITIES: Normal range of motion with bilateral upper extremities and right leg, left leg range of motion impeded by pain, no pitting or edema. No clubbing or cyanosis. NEUROLOGICAL: Cranial nerves II through XII grossly intact. Normal speech, normal gait. PSYCH: Normal mood, normal affect. SKIN: Warm, Dry, normal turgor, no rashes or lesions noted. Left hip surgical incision bandaged, and with Hemovac drain in place. - Labs CBC & Chem 7: 03/26/20 06:54 03/26/20 06:54 Labs: Abnormal Lab Results - Last 24 Hours (Table) 03/26/20 Range/Units 06:54 RBC 2.82 L (3.80-5.40) m/uL Hgb 8.7 L D (11.4-16.0) gm/dL Hct 28.3 L (34.0-46.0) % MCV 100.4 H (80.0-100.0) fL MCHC 30.9 L (31.0-37.0) g/dL Neutrophils # 7.8 H (1.3-7.7) k/uL Microbiology - Last 24 Hours (Table) 03/25/20 07:00 Gram Stain - Preliminary Hip - Left Wound Culture - Preliminary Presumptive Staph aureus 03/25/20 07:00 Gram Stain - Preliminary Hip - Left Wound Culture - Preliminary Presumptive Staph aureus 03/24/20 15:25 Blood Culture - Preliminary Blood No Growth after 24 hours 03/25/20 07:00 Anaerobic Culture - Preliminary Hip - Left 03/25/20 07:00 Anaerobic Culture - Preliminary Hip - Left Assessment and Plan (1) Cellulitis of left hip Current Visit: Yes Status: Acute Code(s): L03.116 - CELLULITIS OF LEFT LOWER LIMB SNOMED Code(s): 42890714287786754 (2) Failure of outpatient treatment Current Visit: Yes Status: Acute Code(s): Z78.9 - OTHER SPECIFIED HEALTH STATUS SNOMED Code(s): 609620093 (3) Status post left hip replacement Current Visit: Yes Status: Acute Code(s): Z96.642 - PRESENCE OF LEFT ARTIFICIAL HIP JOINT SNOMED Code(s): 640502260 (4) Osteoarthritis of right hip Current Visit: No Status: Acute Code(s): M16.11 - UNILATERAL PRIMARY OSTEOARTHRITIS, RIGHT HIP SNOMED Code(s): 949109994409622 Plan: 1. Await cultures. 2. Vancomycin for antibiotic coverage as per ID. 3. Order PICC line for long-term antibiotic coverage. 4. Continue regular diet. 5. Physical therapy to be continued. 6. Continue to monitor vital signs and lab work treated accordingly. 7. We'll reassess again tomorrow. Time with Patient: Greater than 30
--- NOTE | 2020-03-26 11:48 | P.PN ---
Subjective Progress Note Date: 03/26/20 Principal diagnosis: Status post I&D with polyethylene liner and head exchange left hip Patient is evaluated at bedside today, she is resting comfortably. She does note some soreness in the left hip. The drain remains in place. She has ambulated today. She denies any fevers or chills, shortness of breath or chest pain. Objective - Vital Signs Vital signs: Vital Signs Temp 98.2 F 03/26/20 07:23 Pulse 86 03/26/20 08:00 Resp 16 03/26/20 08:00 BP 134/80 03/26/20 07:23 Pulse Ox 98 03/26/20 07:23 Intake & Output 03/25/20 03/26/20 03/26/20 18:59 06:59 18:59 Intake Total 1560 Output Total 150 50 Balance 1410 -50 Intake: IV 600 Oral 960 Output: Drainage 50 Left Hip 50 Estimated Blood Loss 150 Other: Voiding Method Toilet Toilet # Voids 3 - Exam Left lower extremity: Postoperative bandages removed, the drain is in good position and condition. Nylon sutures are in good position and condition. Minimal drainage present. The erythema is much improved. Soft tissue swelling and ecchymosis present. Calf is soft, no tenderness with palpation. Distal neurovascular exam is intact. - Labs CBC & Chem 7: 03/26/20 06:54 03/26/20 06:54 Labs: Abnormal Lab Results - Last 24 Hours (Table) 03/26/20 Range/Units 06:54 RBC 2.82 L (3.80-5.40) m/uL Hgb 8.7 L D (11.4-16.0) gm/dL Hct 28.3 L (34.0-46.0) % MCV 100.4 H (80.0-100.0) fL MCHC 30.9 L (31.0-37.0) g/dL Neutrophils # 7.8 H (1.3-7.7) k/uL Microbiology - Last 24 Hours (Table) 03/25/20 07:00 Gram Stain - Preliminary Hip - Left Wound Culture - Preliminary Presumptive Staph aureus 03/25/20 07:00 Gram Stain - Preliminary Hip - Left Wound Culture - Preliminary Presumptive Staph aureus 03/24/20 15:25 Blood Culture - Preliminary Blood No Growth after 24 hours 03/25/20 07:00 Anaerobic Culture - Preliminary Hip - Left 03/25/20 07:00 Anaerobic Culture - Preliminary Hip - Left Assessment and Plan Assessment: Status post I&D with polyethylene liner and head exchange left hip Plan: Pain control, continue current medication GI and DVT prophylaxis, continue current medication I did change the dressing myself today, I will pull the drain tomorrow Continued ice the hip often Await cultures and infectious disease recommendations Weight-bear as tolerated We'll check CBC and a.m., possible transfusion if below 8 Medical recommendations Time with Patient: Less than 30
[2020-03-26] MEDS: VANCOMYCIN 1,500 MG in SODIUM CHLORIDE 0.9% 250 ML IVPB SCH (13:57)
--- NOTE | 2020-03-26 16:31 | PN ---
PROGRESS NOTE DATE OF SERVICE: 03/26/2020 REASON FOR FOLLOWUP: Left hip infection and cellulitis. INTERVAL HISTORY: The patient is currently afebrile. Has been complaining of pain to the left hip area. Pain is controlled with pain medication. Denies having any chest pain. No shortness of breath or cough. No nausea, vomiting or diarrhea. PHYSICAL EXAMINATION: Blood pressure 112/56, pulse of 79, temperature 98.3, she is 100% on room air. General description is an elderly female lying in bed in no distress. Respiratory system: Unlabored breathing, clear to auscultation anteriorly. Heart S1, S2. Regular rate and rhythm. Abdomen is soft, no tenderness. LABS: Hemoglobin 8.7, white count 9.9. Cultures showing presumptive Staph aureus. Blood culture negative. DIAGNOSTIC IMPRESSION AND PLAN: Patient with left hip infection status post I&D and polyethylene exchange. The patient's cultures now showing Staph aureus. Waiting for the sensitivity. Continue with vancomycin. She will need a PICC line for outpatient antibiotics. Discussed with the welfare case worker. ELIZABETH / RUBINAN: [id number] /
[2020-03-26] MEDS: SENNOSIDES-DOCUSATE SODIUM 1 EACH TAB PO SCH (20:18)
[2020-03-26] MEDS: LACTATED RINGERS 1,000 ML IV SCH (21:19)
[2020-03-27] MEDS ORDERED: VANCOMYCIN 1,500 MG in SODIUM CHLORIDE 0.9% 250 ML IVPB SCH (05:00)
[2020-03-27] MEDS: HYDROcodone/APAP 5-325MG 1 EACH TAB PO PRN ×2 (05:21→16:02)
[2020-03-27 07:08] LABS: Basophils % (A) 0 %; Eosinophils # (A) 0.3 k/uL (0-0.7); Eosinophils % (A) 4 %; HCT 23.4 % (34.0-46.0); HGB 7.4 gm/dL (11.4-16.0); Lymphocytes # (A) 1.5 k/uL (1.0-4.8); Lymphocytes % (A) 19 %; MCH 30.8 pg (25.0-35.0); MCHC 31.4 g/dL (31.0-37.0); MCV 98.1 fL (80.0-100.0); Mean Platelet Volume 7.7; Monocytes # (A) 0.4 k/uL (0-1.0); Monocytes % (A) 5 %; Neutrophils # (A) 5.5 k/uL (1.3-7.7); Neutrophils % (A) 69 %; Platelet Count 242 k/uL (150-450); RBC 2.39 m/uL (3.80-5.40); RDW 13.2 % (11.5-15.5)
[2020-03-27 07:15] LABS: African American GFR (CKD) >90 (>60 ml/min/1.73 sqM); Non-African American GFR(CKD) 83 (>60 ml/min/1.73 sqM)
[2020-03-27] MEDS: FUROSEMIDE 20 MG TAB PO SCH (07:52)
[2020-03-27] MEDS: PANTOPRAZOLE 40 MG TABLET PO SCH (07:52)
[2020-03-27] MEDS: METOPROLOL TARTRATE 25 MG TAB PO SCH (07:52)
[2020-03-27] MEDS: POTASSIUM CHLORIDE ER 20 MEQ TAB.ER PO SCH (07:52)
[2020-03-27] MEDS: CALCIUM CARBONATE 500 MG CHEWABLE PO SCH (07:53)
[2020-03-27] MEDS: ATORVASTATIN 10 MG TAB PO SCH ×2 (07:53→20:19)
[2020-03-27] MEDS: lisinopriL 20 MG TAB PO SCH ×2 (07:53→20:19)
--- NOTE | 2020-03-27 10:45 | P.PN ---
Subjective Progress Note Date: 03/27/20 Principal diagnosis: Status post I&D with polyethylene liner and head exchange left hip Patient is evaluated at bedside today, she is resting comfortably. She does note some soreness in the left hip. She admits to significant fatigue today. She denies any fevers or chills, shortness of breath or chest pain. Objective - Vital Signs Vital signs: Vital Signs Temp 98.8 F 03/27/20 07:15 Pulse 85 03/27/20 07:15 Resp 16 03/27/20 08:00 BP 139/73 03/27/20 07:15 Pulse Ox 98 03/27/20 07:15 Intake & Output 03/26/20 03/27/20 03/27/20 18:59 06:59 18:59 Intake Total 1360 200 200 Output Total 35 Balance 1360 165 200 Intake: Oral 1360 200 200 Output: Drainage 35 Left Hip 35 Other: Voiding Method Toilet Toilet Toilet # Voids 4 3 3 - Exam Left lower extremity: Postoperative bandages removed, the drain is in good position and condition. Nylon sutures are in good position and condition. Minimal drainage present. The erythema is much improved. Soft tissue swelling and ecchymosis present. Calf is soft, no tenderness with palpation. Distal neurovascular exam is intact. - Labs CBC & Chem 7: 03/27/20 06:23 03/27/20 06:23 Labs: Abnormal Lab Results - Last 24 Hours (Table) 03/27/20 Range/Units 06:23 RBC 2.39 L (3.80-5.40) m/uL Hgb 7.4 L (11.4-16.0) gm/dL Hct 23.4 L (34.0-46.0) % Microbiology - Last 24 Hours (Table) 03/24/20 15:25 Blood Culture - Preliminary Blood No Growth after 48 hours 03/25/20 07:00 Gram Stain - Preliminary Hip - Left Wound Culture - Preliminary Presumptive Staph aureus 03/25/20 07:00 Gram Stain - Preliminary Hip - Left Wound Culture - Preliminary Presumptive Staph aureus Assessment and Plan Assessment: Status post I&D with polyethylene liner and head exchange left hip Plan: Pain control, continue current medication GI and DVT prophylaxis, continue current medication Drain removed today at bedside Continued ice the hip often Await cultures and infectious disease recommendations Weight-bear as tolerated Transfuse 1 unit today at bedside Medical recommendations Time with Patient: Less than 30
--- NOTE | 2020-03-27 11:29 | P.PN ---
Subjective Progress Note Date: 03/27/20 Principal diagnosis: Left hip cellulitis, recent left hip replacement 03/26/2020 69-year-old patient sitting up in bed with no complaints at this time. Status postop day 1 for I&D with irrigation and drainage of left total hip arthroplasty with polyethylene exchange and femoral head exchange. She is currently on room air with oxygen saturation of 98%, she is afebrile with a t emperature of 98.2 orally, heart rate is sinus rhythm at 86, respiratory rate is 16, blood pressure 134/80. Today's lab work CBC white blood cell count 9.9, hemoglobin of 8.7, hematocrit of 28.3. Today's chemistry and a creatinine of 0.88, and a GFR of 67. Discussed with the patient of the possibility of long- term IV antibiotics and the potential need of PICC line insertion before discharge. Currently is on IV vancomycin for antibiotic coverage. Pain control with [place], hydromorphone, tramadol, and acetaminophen. 03/27/2020 69-year-old patient postop day 2 I&D with polyethylene liner and head exchange of left hip. She is currently sitting up in the chair denies difficulty breathing but does complain of generalized fatigue. She does complain of left hip soreness but is being controlled with current medication regimen. She has ambulated some today and tolerated well. Left hip dressing is dry and intact with Hemovac compressed and with minimal drainage. She denies any fevers chills or chest pain at this time. This morning's lab work WBC of 8.0 hemoglobin 7.4, hematocrit 23.4, platelet count of 242. Chemistry reveals creatinine of 0.73, GFR 83. Most recent set of vitals this morning for 0 750 and temperature is 98.8 oral pulse rate of 85, respiratory rate is 16, blood pr essure 139/73, and oxygen saturation 98% on room air. Objective - Vital Signs Vital signs: Vital Signs Temp 98.8 F 03/27/20 07:15 Pulse 85 03/27/20 07:15 Resp 16 03/27/20 08:00 BP 139/73 03/27/20 07:15 Pulse Ox 98 03/27/20 07:15 Intake & Output 03/26/20 03/27/20 03/27/20 18:59 06:59 18:59 Intake Total 1360 200 200 Output Total 35 Balance 1360 165 200 Intake: Oral 1360 200 200 Output: Drainage 35 Left Hip 35 Other: Voiding Method Toilet Toilet Toilet # Voids 4 3 3 - Exam GENERAL: Well-appearing, well-nourished and in no acute distress. HEAD: Atraumatic, normocephalic. EYES: Pupils equal round and reactive to light, extraocular movements intact, sclera anicteric, conjunctiva are normal. ENT:nares patent, oropharynx clear without exudates. Moist mucous membranes. NECK: Normal range of motion, supple without lymphadenopathy or JVD, no thyromegaly LUNGS: Breath sounds clear to auscultation bilaterally and equal. No wheezes rales or rhonchi. HEART: Regular rate and rhythm without murmurs, rubs or gallops.S1S2 Normal ABDOMEN: Soft, nontender, normoactive bowel sounds. No guarding, no rebound. No masses appreciated. EXTREMITIES: Normal range of motion with bilateral upper extremities and right leg, left leg range of motion impeded by pain, no pitting or edema. No clubbing or cyanosis. NEUROLOGICAL: Cranial nerves II through XII grossly intact. Normal speech, normal gait. PSYCH: Normal mood, normal affect. SKIN: Warm, Dry, normal turgor, no rashes or lesions noted. Left hip surgical incision bandaged, and with Hemovac drain in place. - Labs CBC & Chem 7: 03/27/20 06:23 03/27/20 06:23 Labs: Abnormal Lab Results - Last 24 Hours (Table) 03/27/20 Range/Units 06:23 RBC 2.39 L (3.80-5.40) m/uL Hgb 7.4 L (11.4-16.0) gm/dL Hct 23.4 L (34.0-46.0) % Microbiology - Last 24 Hours (Table) 03/24/20 15:25 Blood Culture - Preliminary Blood No Growth after 48 hours 03/25/20 07:00 Gram Stain - Preliminary Hip - Left Wound Culture - Preliminary Presumptive Staph aureus 03/25/20 07:00 Gram Stain - Preliminary Hip - Left Wound Culture - Preliminary Presumptive Staph aureus Assessment and Plan (1) Cellulitis of left hip Current Visit: Yes Status: Acute Code(s): L03.116 - CELLULITIS OF LEFT LOWER LIMB SNOMED Code(s): 65942904330270180 (2) Failure of outpatient treatment Current Visit: Yes Status: Acute Code(s): Z78.9 - OTHER SPECIFIED HEALTH STATUS SNOMED Code(s): 271200894 (3) Status post left hip replacement Current Visit: Yes Status: Acute Code(s): Z96.642 - PRESENCE OF LEFT ARTIFICIAL HIP JOINT SNOMED Code(s): 339184802 (4) Osteoarthritis of right hip Current Visit: No Status: Acute Code(s): M16.11 - UNILATERAL PRIMARY OSTEOARTHRITIS, RIGHT HIP SNOMED Code(s): 031661224340041 Plan: 1. Await cultures. 2. Continue vancomycin per ID. 3. Continue current medications for pain control. 4. DVT and GI prophylaxis as already ordered. 5. Residual lab work at 1500 today for comments metabolic panel, CBC with differential reticulocyte count 6. Increase activity 7. We'll continue to follow closely. Time with Patient: Greater than 30
[2020-03-27] MEDS: ENOXAPARIN 40 MG/0.4 ML SYRINGE SQ SCH (11:52)
[2020-03-27 12:25] LABS: ALT 21 U/L (4-34); AST 34 U/L (14-36); Albumin 2.4 g/dL (3.5-5.0); Alkaline Phosphatase 59 U/L (38-126); Anion Gap 6 mmol/L; Blood Urea Nitrogen 12 mg/dL (7-17); Calcium 7.9 mg/dL (8.4-10.2); Carbon Dioxide 23 mmol/L (22-30); Chloride 107 mmol/L (98-107); Glucose 101 mg/dL (74-99); Potassium 4.2 mmol/L (3.5-5.1); Sodium 136 mmol/L (137-145); Total Bilirubin 0.3 mg/dL (0.2-1.3); Total Protein 4.9 g/dL (6.3-8.2)
[2020-03-27] MEDS ORDERED: VANCOMYCIN TROUGH DUE 1 EACH MISC MISCELLANE ONE (20:00)
[2020-03-27] MEDS: SENNOSIDES-DOCUSATE SODIUM 1 EACH TAB PO SCH (20:19)
[2020-03-27 20:20] LABS: Basophils % (A) 0 %; Eosinophils # (A) 0.4 k/uL (0-0.7); Eosinophils % (A) 4 %; HCT 27.6 % (34.0-46.0); HGB 8.6 gm/dL (11.4-16.0); Lymphocytes # (A) 2.2 k/uL (1.0-4.8); Lymphocytes % (A) 23 %; MCH 30.2 pg (25.0-35.0); MCHC 31.2 g/dL (31.0-37.0); MCV 96.9 fL (80.0-100.0); Mean Platelet Volume 7.2; Monocytes # (A) 0.4 k/uL (0-1.0); Monocytes % (A) 4 %; Neutrophils # (A) 6.4 k/uL (1.3-7.7); Neutrophils % (A) 67 %; Platelet Count 275 k/uL (150-450); RBC 2.85 m/uL (3.80-5.40); RDW 14.2 % (11.5-15.5); Reticulocyte % 1.4 % (0.5-2.0); WBC 9.6 k/uL (3.8-10.6)
[2020-03-27] MEDS: LACTATED RINGERS 1,000 ML IV SCH (20:36)
[2020-03-28] MEDS: HYDROcodone/APAP 5-325MG 1 EACH TAB PO PRN ×4 (00:04→21:25)
--- NOTE | 2020-03-28 00:41 | PN ---
PROGRESS NOTE DATE OF SERVICE: 03/27/2020 REASON FOR FOLLOWUP: Left hip septic arthritis, MSSA. INTERVAL HISTORY: The patient is currently afebrile. She is breathing comfortably. Pain to the left hip is currently controlled with pain medication. Denies having any chest pain or cough. No nausea, no vomiting and no diarrhea. PHYSICAL EXAMINATION: Blood pressure 167/74 with a pulse of 88, temperature 98.2. She is 98% on room air. General description is an elderly female lying in bed in no distress. RESPIRATORY SYSTEM: Unlabored breathing, clear to auscultation anteriorly. HEART: S1, S2. Regular rate and rhythm. ABDOMEN: Soft, no tenderness. LABS: Wound culture with MSSA. Blood culture negative. DIAGNOSTIC IMPRESSION AND PLAN: Patient with a left hip septic arthritis, status post I and D and polyethylene exchange MSSA. Blood culture negative. Currently, cefazolin 2 grams q.8, plan for 6 weeks of antibiotic for which Midline will be placed tomorrow. With weekly monitoring of CBC, BMP and sedimentation rate. Continue supportive care. MMODL / IJN: [id number] /
[2020-03-28] MEDS: FUROSEMIDE 20 MG TAB PO SCH (07:18)
[2020-03-28] MEDS: ATORVASTATIN 10 MG TAB PO SCH ×2 (07:18→21:24)
[2020-03-28] MEDS: CALCIUM CARBONATE 500 MG CHEWABLE PO SCH (07:18)
[2020-03-28] MEDS: POTASSIUM CHLORIDE ER 20 MEQ TAB.ER PO SCH (07:18)
[2020-03-28] MEDS: ENOXAPARIN 40 MG/0.4 ML SYRINGE SQ SCH (07:18)
[2020-03-28] MEDS: PANTOPRAZOLE 40 MG TABLET PO SCH (07:18)
[2020-03-28] MEDS: METOPROLOL TARTRATE 25 MG TAB PO SCH (07:18)
[2020-03-28] MEDS: lisinopriL 20 MG TAB PO SCH ×2 (07:18→21:25)
[2020-03-28 07:46] LABS: Basophils # (A) 0.1 k/uL (0-0.2); Basophils % (A) 1 %; Eosinophils # (A) 0.4 k/uL (0-0.7); Eosinophils % (A) 5 %; HCT 29.6 % (34.0-46.0); HGB 9.5 gm/dL (11.4-16.0); Hypochromasia Slight; Lymphocytes # (A) 2.1 k/uL (1.0-4.8); Lymphocytes % (A) 24 %; MCH 31.3 pg (25.0-35.0); MCV 97.8 fL (80.0-100.0); Mean Platelet Volume 7.6; Monocytes # (A) 0.4 k/uL (0-1.0); Monocytes % (A) 5 %; Neutrophils # (A) 5.4 k/uL (1.3-7.7); Neutrophils % (A) 63 %; Platelet Count 283 k/uL (150-450); RBC 3.03 m/uL (3.80-5.40); RDW 14.3 % (11.5-15.5); WBC 8.6 k/uL (3.8-10.6)
[2020-03-28 07:58] LABS: African American GFR (CKD) >90 (>60 ml/min/1.73 sqM); Non-African American GFR(CKD) 88 (>60 ml/min/1.73 sqM)
--- NOTE | 2020-03-28 11:11 | P.PN ---
Subjective Progress Note Date: 03/28/20 This is a 69-year-old female with past medical history of hypertension, hyperlipidemia, recent anterior left total hip arthroplasty admitted with left anterior thigh cellulitis, failed outpatient treatment. C-reactive protein 139.8. Underwent surgical debridement, with deep cultures, with polyethylene ex change and femoral head exchange, tolerated procedure well. Maintained on vancomycin as per ID. afebrile, normal WBC. Blood pressure controlled. Reports tenderness, pain currently controlled. Passing flatus. Denies nausea vomiting or diarrhea. Denies chest pain, palpitations or shortness of breath. 03/28/2020 Maintained on IV antibiotics, wound cultures reporting MSSA. Blood culture negative. Midline placement pending for today. Pain controlled. Positive bowel movement. Denies nausea vomiting or diarrhea. Denies abdominal pain. Received one unit of packed RBCs yesterday for hemoglobin 8.6, currently up to 9.5. Denies chest pain, palpitations or increased shortness of breath. Afebrile, normal WBC. Creatinine 0.68. Objective - Vital Signs Vital signs: Vital Signs Temp 97.9 F 03/28/20 07:59 Pulse 84 03/28/20 07:59 Resp 18 03/28/20 07:59 BP 168/82 03/28/20 07:59 Pulse Ox 99 03/28/20 07:59 Intake & Output 03/27/20 03/28/20 03/28/20 18:59 06:59 18:59 Intake Total 990 100 Balance 990 100 Intake: Oral 680 100 Blood Product 310 Rc As-1 Unit 310 [id number] Other: Voiding Method Toilet Toilet Toilet # Voids 6 2 2 # Bowel Movements 1 1 - Exam VITAL SIGNS: As above GENERAL: Sitting up in bed, no acute distress HEENT: Conjunctivae normal. eyes normal. Oral mucosa moist. NECK: No JVD. No thyroid enlargement. No LNs CARDIOVASCULAR: S1, S2 regular. No murmur RESPIRATION: Breath sounds diminished in the bases. No rhonchi or crackles. ABDOMEN: Soft, nontender . No guarding. no masses palpable. Positive Bowel sounds heard. LEGS: Left hip dressing clean dry and intact, minimal edema. No calf tenderness, positive pulses PSYCHIATRY: Alert and oriented X3, mood and affect normal. NERVOUS SYSTEM: Cranial N 2-12 grossly normal. Moves all 4 limbs. No focal deficits. Strength and sensation grossly intact.. Skin: Warm and dry, no rash - Labs CBC & Chem 7: 03/28/20 06:49 03/28/20 06:49 Labs: Abnormal Lab Results - Last 24 Hours (Table) 03/27/20 03/27/20 03/27/20 Range/Units 06:23 10:55 19:59 RBC 2.85 L (3.80-5.40) m/uL Hgb 8.6 L (11.4-16.0) gm/dL Hct 27.6 L (34.0-46.0) % Sodium 136 L (137-145) mmol/L Glucose 101 H (74-99) mg/dL Calcium 7.9 L (8.4-10.2) mg/dL Total Protein 4.9 L (6.3-8.2) g/dL Albumin 2.4 L (3.5-5.0) g/dL Crossmatch See Detail 03/28/20 Range/Units 06:49 RBC 3.03 L (3.80-5.40) m/uL Hgb 9.5 L (11.4-16.0) gm/dL Hct 29.6 L (34.0-46.0) % Sodium (137-145) mmol/L Glucose (74-99) mg/dL Calcium (8.4-10.2) mg/dL Total Protein (6.3-8.2) g/dL Albumin (3.5-5.0) g/dL Crossmatch Microbiology - Last 24 Hours (Table) 03/25/20 07:00 Gram Stain - Final Hip - Left Wound Culture - Final Staphylococcus aureus 03/24/20 15:25 Blood Culture - Preliminary Blood No Growth after 72 hours 03/25/20 07:00 Anaerobic Culture - Preliminary Hip - Left 03/25/20 07:00 Anaerobic Culture - Preliminary Hip - Left 03/25/20 07:00 Gram Stain - Final Hip - Left Wound Culture - Final Staphylococcus aureus Assessment and Plan Assessment: Left hip septic arthritis MSSA with cellulitis, in a patient with recent left total hip arthroplasty-anterior approach , failed outpatient treatment, status post I&D with polyethylene exchange and femoral head exchange, Hypertension Hyperlipidemia Plan: Continue current medication regime ,monitoring and symptomatic treatment. Midline placement pending with DC Antibiotics as per ID. pain management as per primary. Maintain aggressive pulmonary toileting with incentive spirometer every hour 10 while at home as previously advised. Follow-up with PCP in one week. The impression and plan of care has been dictated as directed. : I performed a history and examination of this patient, discussed the same with the dictator. I agree with the dictator's note ,documented as a scribe. Any additional findings or plans will be noted.
--- NOTE | 2020-03-28 12:26 | P.PN ---
Subjective Progress Note Date: 03/28/20 Principal diagnosis: Status post I&D with polyethylene liner and head exchange left hip Patient is evaluated at bedside today, she is resting comfortably. She denies any fevers or chills, shortness of breath or chest pain. Objective - Vital Signs Vital signs: Vital Signs Temp 97.9 F 03/28/20 07:59 Pulse 84 03/28/20 07:59 Resp 18 03/28/20 07:59 BP 168/82 03/28/20 07:59 Pulse Ox 99 03/28/20 07:59 Intake & Output 03/27/20 03/28/20 03/28/20 18:59 06:59 18:59 Intake Total 990 100 Balance 990 100 Intake: Oral 680 100 Blood Product 310 Rc As-1 Unit 310 [id number] Other: Voiding Method Toilet Toilet Toilet # Voids 6 2 2 # Bowel Movements 1 1 - Exam Left lower extremity: Nylon sutures are in good position and condition. Minimal drainage present. The erythema is much improved. Soft tissue swelling and ecchymosis present. Calf is soft, no tenderness with palpation. Distal neurovascular exam is intact. - Labs CBC & Chem 7: 03/28/20 06:49 03/28/20 06:49 Labs: Abnormal Lab Results - Last 24 Hours (Table) 03/27/20 03/27/20 03/27/20 Range/Units 06:23 10:55 19:59 RBC 2.85 L (3.80-5.40) m/uL Hgb 8.6 L (11.4-16.0) gm/dL Hct 27.6 L (34.0-46.0) % Sodium 136 L (137-145) mmol/L Glucose 101 H (74-99) mg/dL Calcium 7.9 L (8.4-10.2) mg/dL Total Protein 4.9 L (6.3-8.2) g/dL Albumin 2.4 L (3.5-5.0) g/dL Crossmatch See Detail 03/28/20 Range/Units 06:49 RBC 3.03 L (3.80-5.40) m/uL Hgb 9.5 L (11.4-16.0) gm/dL Hct 29.6 L (34.0-46.0) % Sodium (137-145) mmol/L Glucose (74-99) mg/dL Calcium (8.4-10.2) mg/dL Total Protein (6.3-8.2) g/dL Albumin (3.5-5.0) g/dL Crossmatch Microbiology - Last 24 Hours (Table) 03/25/20 07:00 Gram Stain - Final Hip - Left Wound Culture - Final Staphylococcus aureus 03/24/20 15:25 Blood Culture - Preliminary Blood No Growth after 72 hours 03/25/20 07:00 Anaerobic Culture - Preliminary Hip - Left 03/25/20 07:00 Anaerobic Culture - Preliminary Hip - Left 03/25/20 07:00 Gram Stain - Final Hip - Left Wound Culture - Final Staphylococcus aureus Assessment and Plan Assessment: Status post I&D with polyethylene liner and head exchange left hip Plan: Pain control, continue current medication GI and DVT prophylaxis, continue current medication Drain removed today at bedside Continued ice the hip often Await cultures and infectious disease recommendations Weight-bear as tolerated Medical recommendations Plan for dc home today Time with Patient: Less than 30
--- NOTE | 2020-03-28 12:34 | P.DS ---
Providers Date of admission: 03/24/20 15:44 Expected date of discharge: 03/28/20 Attending physician: Shadi Erickson Consults: 03/24/20 15:34 Consult Physician Urgent Consulting Provider: Joe Willingham Consult Reason/Comments: Left hip cellulitis status post replacement Do you want consulting provider notified?: Yes 03/24/20 15:37 Consult Physician Urgent Consulting Provider: Maico Maynard Consult Reason/Comments: Medical management, established patient Do you want consulting provider notified?: Yes Primary care physician: Maico Maynard Hospital Course: Date of admission: 03/24/2020 Date of discharge: 03/28/2020 Admission diagnosis: Left hip periprosthetic infection Discharge diagnosis: Status post incision and drainage with irrigation left hip, polyethylene liner and head exchange Attending physician: Dr. Erickson Surgical procedures: Incision and drainage with irrigation left hip, polyethylene liner and head exchange Brief history: Patient is a 69-year-old female who presented to [facility] on 03/24/2020 with regards to redness and swelling of the left lower extremity. She recently had her left hip replaced in late February by Dr. Erickson. She been doing very well postoperatively. She states that she woke up a few days ago with some redness beginning around the incision on her left hip, and over 2 days significantly worsened. Hospital course: Patient presented to the hospital on 03/24/2020 with regards to her problem involving the left lower extremity. I was contacted by the emergency room staff regarding the patient, I then evaluated the patient myself in the emergency room. It was determined she had an infection of her left periprosthetic hip. She was boarded for surgery for a [address] Erickson. She underwent an incision and drainage with irrigation and polyethylene liner and head exchange of the left hip. She was kept on IV antibiotics with infectious disease and internal medicine consult. Cultures were obtained and reviewed revealing MSSA. A midline was placed for plan for IV antibiotics in the outpatient setting. Patient was discharged home postop day 3. Discharge condition/disposition: Patient will be discharged home in stable condition. Discharge medications: Instructions are given on resumption of patient's normal daily medications per primary care recommendation, in addition patient will be prescribed [place] 5 mg/325 mg, Kefzol Senokot, Protonix. Discharge instructions: 1. Wound care and infection precautions, keep incision dry and covered while showering no lotions, creams, moisturizers. No soaking, tubs, pools, hottubs. Do not scrub over the incision. 2. Weight-bear [as tolerated] with walker / cane until follow-up. 3. Ice and elevate when necessary. Do not exceed 20 minutes per hour with ice pack. 4. Utilize compression sleeve until seen at first follow up appointment. 5. Visiting nursing care. 6. Home physical therapy. 7. Pain meds and anticoagulants per prescription. 8. Pain medication has potential to cause constipation. Increase oral fluid and fiber intake. Contact primary care provider if you have not had a bowel movement within 48 hours after discharge 9. No anti-inflammatory medication until discussed at first post operative visit, this including Motrin, Aleve, Mobic, Diclofenac 10. Follow up in office at 2 weeks postop with Theron Aldridge PA-C 11. Follow up with your primary care doctor 7-10 days after discharge. 12. Contact [facility] with any questions, . Procedures: Incision and drainage with irrigation and polyethylene liner and head exchange left hip Patient Condition at Discharge: Fair Plan - Discharge Summary Discharge Rx Participant: No New Discharge Prescriptions: New ceFAZolin [Kefzol] 2 gm IVP Q8HR #120 vial Pantoprazole [Protonix] 40 mg PO DAILY #[address] tablet.[address] Sanders-Docusate Sodium [Senokot-S] 2 each PO HS #60 tab Hydrocodone/Acetaminophen [[place] 5-325] 1 each PO Q6HR PRN #28 tab PRN Reason: Pain Continue lisinopriL [Prinivil] 20 mg PO BID Metoprolol Tartrate [Lopressor] 25 mg PO DAILY Furosemide [Lasix] 20 mg PO DAILY Lovastatin [Mevacor] 40 mg PO BID Potassium Chloride 20 meq PO DAILY Calcium Carbonate [Calcium] 600 mg PO DAILY Apixaban [Eliquis] 2.5 mg PO BID #60 tab Discontinued Sulfamethoxazole/Trimethoprim [Sulfamethoxazole-Tmp Ds Tablet] 1 tab PO BID Discharge Medication List Furosemide [Lasix] 20 mg PO DAILY 03/29/17 [History] Lovastatin [Mevacor] 40 mg PO BID 03/29/17 [History] Metoprolol Tartrate [Lopressor] 25 mg PO DAILY 03/29/17 [History] lisinopriL [Prinivil] 20 mg PO BID 03/29/17 [History] Calcium Carbonate [Calcium] 600 mg PO DAILY 02/15/20 [History] Potassium Chloride 20 meq PO DAILY 02/15/20 [History] Apixaban [Eliquis] 2.5 mg PO BID #60 tab 02/25/20 [Rx] ceFAZolin [Kefzol] 2 gm IVP Q8HR #120 vial 03/27/20 [Rx] Hydrocodone/Acetaminophen [[place] 5-325] 1 each PO Q6HR PRN #28 tab 03/28/20 [Rx] Pantoprazole [Protonix] 40 mg PO DAILY #30 tablet. 03/28/20 [Rx] Sennosides-Docusate Sodium [Senokot-S] 2 each PO HS #60 tab 03/28/20 [Rx] Follow up Appointment(s)/Referral(s): Isrrael Murrieta Jr, DO [Doctor of Osteopathic Medicine] - 1 Week [facility], [NON-STAFF] - As Needed Allen Aldridge PAC [PHYSICIAN PIN TICKET MACHINE OPERATOR] - 2 Weeks Joe Willingham MD [STAFF PHYSICIAN] - 1 Week Ambulatory/Diagnostic Orders: Basic Metabolic Panel [LAB.AMB] Location: None Selected C Reactive Protein [LAB.AMB] Location: None Selected Complete Blood Count w/diff [LAB.AMB] Location: None Selected Erythrocyte Sedimentation Rate [LAB.AMB] Location: None Selected Activity/Diet/Wound Care/Special Instructions: Pain management as per orthopedics Orthopedic Discharge Instructions: 1. Wound care and infection precautions, keep incision dry and covered while showering, no lotions, creams, moisturizers. No soaking, pools, hot tubs. Do not scrub over incision. 2. Weight-bear as tolerated with walker / cane until follow-up. 3. Ice and elevate when necessary. Do not exceed 20 minutes per hour with ice pack. 4. Utilize compression sleeve until seen at first follow up appointment. 5. Pain meds and anticoagulants per prescription. 6. Pain medication has potential to cause constipation. Increase oral fluid and fiber intake. Contact primary care provider if you have not had a bowel movement within 48 hours after discharge. 7. No anti-inflammatory medication until discussed at first post operative visit, this including Motrin, Aleve, Mobic, Diclofenac. 8. Follow up in office at 2 weeks postop with Theron Aldridge PA-C 9. Follow up with your primary care doctor 7-10 days after discharge. 10. Contact [facility] with any questions, . Discharge Disposition: HOME WITH HOME HEALTH SERVICES
--- NOTE | 2020-03-28 16:27 | PN ---
PROGRESS NOTE DATE OF SERVICE: 03/28/2020 REASON FOR FOLLOWUP: Left hip septic arthritis. INTERVAL HISTORY: Patient is currently afebrile, patient is breathing comfortably. The patient denies having any chest pain, shortness of breath or cough. No nausea, no vomiting. No pain to the hip, it is finally controlled. PHYSICAL EXAMINATION: Blood pressure 156/74 with a pulse of 92, temperature 98.4, she is 100% on room air. General description is an elderly female, lying in bed in no distress. RESPIRATORY SYSTEM: Unlabored breathing, clear to auscultation anteriorly. HEART: S1, S2. Regular rate and rhythm. ABDOMEN: Soft, no tenderness. LABS: Hemoglobin 9.5, white count 8.6, creatinine 0.68. Blood culture negative. DIAGNOSTIC IMPRESSION AND PLAN: Patient with left hip septic arthritis, status post I and D and polyethylene exchange. Culture with MSSA, blood culture negative. Plan is for cefazolin 2 g q.8 hours for 6 weeks. The patient did have a sedimentation rate of 101, CRP of 139, will monitor weekly. Follow up in the office in 2 weeks. Once antibiotic arranged, she will be able to go home from ID standpoint. MMODL / IJN: [id number] / VINCE
[2020-03-28] MEDS: SENNOSIDES-DOCUSATE SODIUM 1 EACH TAB PO SCH (21:24)
[2020-03-28] MEDS: LACTATED RINGERS 1,000 ML IV SCH (22:31)
[2020-03-29] MEDS: METOPROLOL TARTRATE 25 MG TAB PO SCH (07:33)
[2020-03-29] MEDS: PANTOPRAZOLE 40 MG TABLET PO SCH (07:33)
[2020-03-29] MEDS: ATORVASTATIN 10 MG TAB PO SCH (07:33)
[2020-03-29] MEDS: CALCIUM CARBONATE 500 MG CHEWABLE PO SCH (07:33)
[2020-03-29] MEDS: POTASSIUM CHLORIDE ER 20 MEQ TAB.ER PO SCH (07:33)
[2020-03-29] MEDS: lisinopriL 20 MG TAB PO SCH (07:34)
[2020-03-29] MEDS: FUROSEMIDE 20 MG TAB PO SCH (07:34)
[2020-03-29] MEDS: ENOXAPARIN 40 MG/0.4 ML SYRINGE SQ SCH (07:34)
[2020-03-29 08:13] VITALS: BP 180/96; PULSE 87; RESP 18; TEMP 98.3
[2020-03-29] MEDS ORDERED: ONDANSETRON 4 MG/2 ML VIAL IVP PRN (09:46)
[2020-03-29] MEDS ORDERED: NALOXONE 0.4 MG/ML 1 ML VIAL IV PRN (09:46)
--- NOTE | 2020-03-29 11:15 | P.PN ---
Subjective Progress Note Date: 03/29/20 Principal diagnosis: Status post I&D with polyethylene liner and head exchange left hip Patient is evaluated at bedside today, she is resting comfortably. She denies any fevers or chills, shortness of breath or chest pain. Patient was not discharged home yesterday due to insurance reasons with the IV antibiotics, there hopefully for discharge today Objective - Vital Signs Vital signs: Vital Signs Temp 98.3 F 03/29/20 08:00 Pulse 87 03/29/20 08:00 Resp 18 03/29/20 08:00 BP 180/96 03/29/20 08:00 Pulse Ox 98 03/29/20 08:00 Intake & Output 03/28/20 03/29/20 03/29/20 18:59 06:59 18:59 Intake Total 380 296 Balance 380 296 Intake: Oral 380 296 Other: Voiding Method Toilet Toilet Toilet # Voids 1 2 # Bowel Movements 1 1 - Exam Left lower extremity: Nylon sutures are in good position and condition. Minimal drainage present. The erythema is much improved. Soft tissue swelling and ecchymosis present. C skilled nursing is soft, no tenderness with palpation. Distal neurovascular exam is intact. - Labs CBC & Chem 7: 03/28/20 06:49 03/28/20 06:49 Labs: Microbiology - Last 24 Hours (Table) 03/24/20 15:25 Blood Culture - Preliminary Blood No Growth after 96 hours 03/25/20 07:00 Gram Stain - Final Hip - Left Wound Culture - Final Staphylococcus aureus Assessment and Plan Assessment: Status post I&D with polyethylene liner and head exchange left hip Plan: Pain control, continue current medication GI and DVT prophylaxis, continue current medication Drain removed today at bedside Continued ice the hip often Await cultures and infectious disease recommendations Weight-bear as tolerated Medical recommendations Plan for dc home today Time with Patient: Less than 30
--- NOTE | 2020-03-29 11:48 | P.PN ---
Subjective Progress Note Date: 03/29/20 This is a 69-year-old female with past medical history of hypertension, hyperlipidemia, recent anterior left total hip arthroplasty admitted with left anterior thigh cellulitis, failed outpatient treatment. C-reactive protein 139.8. Underwent surgical debridement, with deep cultures, with polyethylene ex change and femoral head exchange, tolerated procedure well. Maintained on vancomycin as per ID. afebrile, normal WBC. Blood pressure controlled. Reports tenderness, pain currently controlled. Passing flatus. Denies nausea vomiting or diarrhea. Denies chest pain, palpitations or shortness of breath. 03/28/2020 Maintained on IV antibiotics, wound cultures reporting MSSA. Blood culture negative. Midline placement pending for today. Pain controlled. Positive bowel movement. Denies nausea vomiting or diarrhea. Denies abdominal pain. Received one unit of packed RBCs yesterday for hemoglobin 8.6, currently up to 9.5. Denies chest pain, palpitations or increased shortness of breath. Afebrile, normal WBC. Creatinine 0.68. 03/29/2020 midline placed yesterday.patient's discharged was placed on hold yesterday secondary to insurance authorization regarding IV antibiotics. Arabella hubbard now has authorization, case management ensuring home care for today. No overnight events. Pain controlled. Denies nausea vomiting or diarrhea. Denies chest pain, palpitations or shortness of breath. Afebrile, normal WBC. Objective - Vital Signs Vital signs: Vital Signs Temp 98.3 F 03/29/20 08:00 Pulse 87 03/29/20 08:00 Resp 18 03/29/20 08:00 BP 180/96 03/29/20 08:00 Pulse Ox 98 03/29/20 08:00 Intake & Output 03/28/20 03/29/20 03/29/20 18:59 06:59 18:59 Intake Total 380 296 Balance 380 296 Intake: Oral 380 296 Other: Voiding Method Toilet Toilet Toilet # Voids 1 2 # Bowel Movements 1 1 - Exam VITAL SIGNS: As above GENERAL: Sitting up in bed, no acute distress HEENT: Conjunctivae normal. eyes normal. Oral mucosa moist. NECK: No JVD. No thyroid enlargement. No LNs CARDIOVASCULAR: S1, S2 regular. No murmur RESPIRATION: Breath sounds diminished in the bases. ABDOMEN: Soft, nontender . No guarding. no masses palpable. Positive Bowel sounds heard. LEGS: Left hip dressing clean dry and intact, minimal edema. No calf tenderness, positive pulses PSYCHIATRY: Alert and oriented X3, mood and affect normal. NERVOUS SYSTEM: Cranial N 2-12 grossly normal. Moves all 4 limbs. No focal deficits. Strength and sensation grossly intact.. Skin: Warm and dry, no rash - Labs CBC & Chem 7: 03/28/20 06:49 03/28/20 06:49 Labs: Microbiology - Last 24 Hours (Table) 03/24/20 15:25 Blood Culture - Preliminary Blood No Growth after 96 hours 03/25/20 07:00 Gram Stain - Final Hip - Left Wound Culture - Final Staphylococcus aureus Assessment and Plan Assessment: Left hip septic arthritis MSSA with cellulitis, in a patient with recent left total hip arthroplasty-anterior approach , failed outpatient treatment, status post I&D with polyethylene exchange and femoral head exchange, Hypertension Hyperlipidemia Plan: Continue current medication regime ,monitoring and symptomatic treatment. Maintain aggressive pulmonary toileting with incentive spirometer every hour 10 while at home as previously advised. IV antibiotics as per ID. Pain management as per primary. Follow-up with PCP in one week. The impression and plan of care has been dictated as directed. : I performed a history and examination of this patient, discussed the same with the dictator. I agree with the dictator's note ,documented as a scribe. Any additional findings or plans will be noted.
--- NOTE | 2020-03-29 14:07 | PN ---
PROGRESS NOTE DATE OF SERVICE: 03/29/2020 REASON FOR FOLLOWUP: Left hip septic arthritis. INTERVAL HISTORY: The patient is currently afebrile, patient is breathing comfortably. Patient denies having any chest pain, shortness of breath or cough. No nausea, no vomiting, no abdominal pain. Pain to the left knee is currently controlled. PHYSICAL EXAMINATION: Blood pressure 180/93 with a pulse of 87, temperature 98.3, she is 98% on room air. General description is an elderly female, up in the chair in no distress. RESPIRATORY SYSTEM: Unlabored breathing, clear to auscultation anteriorly, heart S1, S2. Regular rate and rhythm. ABDOMEN: Soft, no tenderness. Left hip swelling and redness had decreased. LABS: White count 8.6, creatinine 0.68. DIAGNOSTIC IMPRESSION AND PLAN: Patient with MSSA left hip septic arthritis. Blood culture has been negative. Plan is for cefazolin 2 grams q.8 hours for 6 weeks, weekly monitor CBC, BMP, and sedimentation rate and close outpatient followup. Continue supportive care. MMODL / IJN: [id number] /
== END 2020-03-29 12:45 | disposition home health service (06) | DRG 467 ==
LOC: EC 14:42 → 4SSUR 15:44
PROVIDERS: ADMIT Orthopaedic Surgery; ATTEND Orthopaedic Surgery
PROC: 0SRS0JZ Replacement of Left Hip Joint, Femoral Surface with Synthetic Substitute, Open Approach (ICD-10-PCS; principal; 2020-03-25 08:25)
PROC: 0SBB0ZZ Excision of Left Hip Joint, Open Approach (ICD-10-PCS; principal; 2020-03-25 08:25)
PROC: 0SPS0JZ Removal of Synthetic Substitute from Left Hip Joint, Femoral Surface, Open Approach (ICD-10-PCS; principal; 2020-03-25 08:25)
PROC: 30233N1 Transfusion of Nonautologous Red Blood Cells into Peripheral Vein, Percutaneous Approach (ICD-10-PCS; 2020-03-29)
DX: T84.52XA Infection and inflammatory reaction due to internal left hip prosthesis, initial encounter (principal); L03.116 Cellulitis of left lower limb; M00.052 Staphylococcal arthritis, left hip; D62 Acute posthemorrhagic anemia; B95.61 Methicillin susceptible Staphylococcus aureus infection as the cause of diseases classified elsewhere; Y83.9 Surgical procedure, unspecified as the cause of abnormal reaction of the patient, or of later complication, without mention of misadventure at the time of the procedure; M25.562 Pain in left knee; E78.5 Hyperlipidemia, unspecified; I10 Essential (primary) hypertension; Z96.642 Presence of left artificial hip joint; Z79.899 Other long term (current) drug therapy; Z79.01 Long term (current) use of anticoagulants; Z90.49 Acquired absence of other specified parts of digestive tract; Z98.890 Other specified postprocedural states; Z80.9 Family history of malignant neoplasm, unspecified; Z78.9 Other specified health status
CPT/HCPCS: 36410; 73501; 76937; 80053; 80202; 82565; 83605; 85025; 85045; 85610; 85652; 85730; 86140; 86850; 86900; 86901; 86920; 87040; 87070; 87075; 87077; 87186; 87205; 96374; 99284

== ENCOUNTER 2020-04-10 13:39 | Emergency (ER) | payer MEDICARE ==
[2020-04-10 13:44] VITALS: RESP 18; TEMP 98.5
--- NOTE | 2020-04-10 14:06 | ED ---
Skin/Abscess/FB HPI - General Chief complaint: Skin/Abscess/Foreign Body Stated complaint: Picc Line Issues Time Seen by Provider: 04/10/20 13:57 Source: patient Mode of arrival: ambulatory Limitations: no limitations - History of Present Illness Initial comments: Patient is 69-year-old female presenting to the emergency room with a chief complaint of PICC line function. Patient states she was admitted in this hospital on March 24 for a kelly-prostatic infection and underwent incision and drainage by Dr. Jurado. Patient states afterwards she had a PICC line placed in the left upper extremity. She has been self administering at home. Patient reports that yesterday she noticed some blood leaking near the insertion site of the PICC line. Patient is concerned that is "not in place". Patient reports the PICC line is otherwise flush it without difficulties. Denies any pain, erythema or other discharge noted. - Related Data Home Medications Medication Instructions Recorded Confirmed Furosemide [Lasix] 20 mg PO DAILY 03/29/17 03/24/20 Lovastatin [Mevacor] 40 mg PO BID 03/29/17 03/24/20 Metoprolol Tartrate [Lopressor] 25 mg PO DAILY 03/29/17 03/24/20 lisinopriL [Prinivil] 20 mg PO BID 03/29/17 03/24/20 Calcium Carbonate [Calcium] 600 mg PO DAILY 02/15/20 03/24/20 Potassium Chloride 20 meq PO DAILY 02/15/20 03/24/20 Previous Rx's Medication Instructions Recorded Apixaban [Eliquis] 2.5 mg PO BID #60 tab 02/25/20 ceFAZolin [Kefzol] 2 gm IVP Q8HR #120 vial 03/27/20 Hydrocodone/Acetaminophen [[place] 1 each PO Q6HR PRN #28 tab 03/28/20 5-325] Pantoprazole [Protonix] 40 mg PO DAILY #30 tablet. 03/28/20 Sennosides-Docusate Sodium 2 each PO HS #60 tab 03/28/20 [Senokot-S] Allergies Allergy/AdvReac Type Severity Reaction Status Date / Time No Known Allergies Allergy Verified 04/10/20 13:44 Review of Systems ROS Statement: Those systems with pertinent positive or pertinent negative responses have been documented in the HPI. ROS Other: All systems not noted in ROS Statement are negative. Past Medical History Past Medical History: Hyperlipidemia, Hypertension, Osteoarthritis (OA) Additional Past Medical History / Comment(s): RT HIP OA. WEARS SUPPORT STOCKINGS. HEART MURMUR. History of Any Multi-Drug Resistant Organisms: None Reported Past Surgical History: Cholecystectomy, Joint Replacement Additional Past Surgical History / Comment(s): COLONOSCOPY Past Anesthesia/Blood Transfusion Reactions: No Reported Reaction Past Psychological History: No Psychological Hx Reported Smoking Status: Never smoker Past Alcohol Use History: None Reported Past Drug Use History: None Reported - Past Family History Mother Family Medical History: Cancer General Exam Limitations: no limitations General appearance: alert, in no apparent distress Head exam: Present: atraumatic, normocephalic, normal inspection Eye exam: Present: normal appearance, PERRL, EOMI Pupils: Present: normal accommodation ENT exam: Present: normal exam, normal oropharynx, mucous membranes moist, TM's normal bilaterally, normal external ear exam Neck exam: Present: normal inspection, full ROM. Absent: tenderness Respiratory exam: Present: normal lung sounds bilaterally. Absent: respiratory distress, wheezes, rales Cardiovascular Exam: Present: regular rate, normal rhythm, normal heart sounds Extremities exam: Present: full ROM, normal capillary refill, other (+2 ulnar and radial pulses bilateral.). Absent: normal inspection (PICC line in the left upper external ear. Skin residual blood but no active bleeding at this time. No surrounding erythema, active discharge or signs of infection.), tenderness, pedal edema, joint swelling, calf tenderness Back exam: Present: normal inspection, full ROM. Absent: tenderness Neurological exam: Present: alert, oriented X3, CN II-XII intact, normal gait Psychiatric exam: Present: normal affect, normal mood Skin exam: Present: warm, dry, intact, normal color Course Vital Signs 04/10/20 04/10/20 04/10/20 13:40 16:34 17:53 Temperature 98.5 F Pulse Rate 85 85 72 Respiratory 18 18 18 Rate Blood Pressure 194/98 199/99 162/76 O2 Sat by Pulse 99 98 Oximetry Medical Decision Making - Medical Decision Making Patient is 69-year-old female presenting to emergency Department with a chief complaint of a PICC line malfunction. On exam there appears to be some residual scant blood around the PICC line. Ultrasound performed shows no signs of DVT but there is some superficial venous thrombi. Patient does not have any pain on exam. No overlying cellulitic skin changes or anything that would indicate an infection. A flush was attempted with heparin and saline with out success. The line was removed and it appeared to be a midline instead of PICC line. spoke to Dr Maynard who said the patient can be discharged with a regular peripheral line and the patient will be contacted on Saturday when a New PICC line will be inserted. Patient was given 2 mg of Cain in the ED. She will be discharged. Return parameters thoroughly discussed the patient is understanding and agreeable. Case discussed with physician. Disposition Clinical Impression: Bleeding from PICC line Disposition: HOME SELF-CARE Condition: Stable Instructions (If sedation given, give patient instructions): How to Flush Your PICC or Midline Catheter (ED) Additional Instructions: Dr. Maynard will arrange for PICC line placement on Saturday. Return to emergency department if symptoms worsen. Is patient prescribed a controlled substance at d/c from ED?: No Referrals: Maico Maynard MD [Primary Care Provider] - 1-2 days Time of Disposition: 16:00
--- NOTE | 2020-04-10 15:26 | US ---
EXAMINATION TYPE: US venous doppler duplex UE LT DATE OF EXAM: 04/10/2020 COMPARISON: NONE CLINICAL HISTORY: picc line leaking, r/o dvt. PICC line issues within left arm, no h/o dvt SIDE PERFORMED: Left Left Arm: Negative for DVT no blood flow seen around PICC line that is placed in cephalic vein, sup erficial DVT IMPRESSION: No sign of deep vein thrombosis in the left arm. There is some superficial vein thrombosis in the cep halic vein.
[2020-04-10 17:54] VITALS: BP 162/76; PULSE 72
== END 2020-04-10 18:15 | disposition home or self-care (01) ==
LOC: EC 13:39
DX: T82.534A Leakage of infusion catheter, initial encounter (principal); E78.5 Hyperlipidemia, unspecified; I10 Essential (primary) hypertension; Z79.899 Other long term (current) drug therapy
CPT/HCPCS: 93971; 99283; 96365; 96375; J0690; J1642

== ENCOUNTER → 2020-04-13 | Day surgery (SDC) | payer MEDICARE | LOC: CATHCVL 14:09 | PROVIDERS: ATTEND Family Medicine | DX: T84.52XA Infection and inflammatory reaction due to internal left hip prosthesis, initial encounter (principal); B95.8 Unspecified staphylococcus as the cause of diseases classified elsewhere; E78.5 Hyperlipidemia, unspecified; I10 Essential (primary) hypertension; M16.11 Unilateral primary osteoarthritis, right hip; Z96.642 Presence of left artificial hip joint; Z86.19 Personal history of other infectious and parasitic diseases; Z79.899 Other long term (current) drug therapy; Z90.49 Acquired absence of other specified parts of digestive tract; Z80.9 Family history of malignant neoplasm, unspecified | CPT/HCPCS: 36410; 76937; C1751 ==

== ENCOUNTER → 2021-02-15 | Outpatient (CLI) | payer MEDICARE ==
--- NOTE | 2021-02-16 07:32 | BD ---
EXAMINATION TYPE: Axial Bone Density DATE OF EXAM: 02/15/2021 COMPARISON: NONE CLINICAL HISTORY: Postmenopausal Height: 65.5 IN Weight: 193 LBS FRAX RISK QUESTIONS: Secondary Osteoporosis: Rheumatoid Arthritis: YES RISK FACTORS HISTORY OF: Surgery toHip(right/left): RT HIP 2017; LT HIP 2018 Active: LIMITED Postmenopausal woman: AGE 48 Lost more than 2 inches in height since high school: YES 08/06" MEDICATIONS: Additional Medications: NONE EXAM MEASUREMENTS: Bone mineral densitometry was performed using the Epicrisis System. Bone mineral density as measured about the Lumbar spine is: ----- L1-L4(G/cm2): 1.243 T Score Values are as follows: ----- L2: -0.4 ----- L3: 1.3 ----- L4: 1.0 ----- L1-L4: 0.5 Bone mineral density has: Increased 1.7% since study of: 10/07/2017 MARY HIP REPLACEMENTS Bone mineral density about the L Wrist (g/cm2): 0.716 T Score values are as follows: -----Dist. R+U: 0.5 -----Prox. R+U: 0.8 -----Radius total: 0.7 Bone mineral density BASELINE IMPRESSION: Normal bone mineral density. NOTE: T-SCORE=SD OF THE YOUNG ADULT MEAN.
== END | disposition home or self-care (01) ==
LOC: RADBDWWP 11:06
PROVIDERS: ATTEND Family Medicine
DX: Z78.0 Asymptomatic menopausal state (principal); M06.9 Rheumatoid arthritis, unspecified
CPT/HCPCS: 77080

== ENCOUNTER → 2021-05-04 | Outpatient (CLI) | payer MEDICARE ==
--- NOTE | 2021-05-08 11:14 | MM ---
Reason for exam: screening (asymptomatic). Last mammogram was performed 1 year and 3 months ago. History: Patient is postmenopausal. Physical Findings: A clinical breast exam by your physician is recommended on an annual basis and results should be correlated with mammographic findings. MG 3D Screening Mammo W/Cad Bilateral CC, MLO, and XCCL view(s) were taken. Prior study comparison: January 27, 2020, bilateral MG 3d screening mammo w/cad. October 24, 2018, bilateral MG 3d screening mammo w/cad. There are scattered fibroglandular densities. There are benign appearing round calcifications bilaterally. There is no discrete abnormality. ASSESSMENT: Benign, BI-RAD 2 RECOMMENDATION: Routine screening mammogram of both breasts in 1 year.
== END | disposition home or self-care (01) ==
LOC: RADMAMWWP 09:38
PROVIDERS: ATTEND Family Medicine
DX: Z12.31 Encounter for screening mammogram for malignant neoplasm of breast (principal); Z78.0 Asymptomatic menopausal state
CPT/HCPCS: 77063; 77067

== ENCOUNTER → 2021-10-23 | Outpatient (CLI) | payer MEDICARE ==
--- NOTE | 2021-10-23 15:32 | CT ---
EXAMINATION TYPE: CT shoulder RT wo con DATE OF EXAM: 10/23/2021 COMPARISON: X-ray 10/16/2021 HISTORY: Right shoulder pain, no injury. Pre-surgical. CT DLP: 345.2 mGycm Automated exposure control for dose reduction was used. FINDINGS: Severe glenohumeral joint arthropathy with cystic changes involving the humeral head and glenoid. Com plete loss of articular cartilage and joint space suspected. Large spur along the lower margin of the humeral head. No acute fracture or dislocation. Severe AC joint arthropathy correlate for rotator cuff impingement. Changes of COPD and chronic interstitial lung disease incidentally noted there is hypertrophic change s visualized portion of the vertebral column. IMPRESSION: 1. Severe glenohumeral joint arthropathy with complete loss of joint space as discussed above. 2. Severe AC joint arthropathy.
== END | disposition home or self-care (01) ==
LOC: RADCTMAIN 13:45
PROVIDERS: ATTEND Orthopaedic Surgery
DX: M12.811 Other specific arthropathies, not elsewhere classified, right shoulder (principal); M25.811 Other specified joint disorders, right shoulder

== ENCOUNTER → 2021-11-23 | Outpatient (CLI) | payer MEDICARE | END | disposition home or self-care (01) | LOC: LABPAT 09:08 | PROVIDERS: ATTEND Orthopaedic Surgery | DX: Z01.812 Encounter for preprocedural laboratory examination (principal); M19.011 Primary osteoarthritis, right shoulder; Z22.322 Carrier or suspected carrier of Methicillin resistant Staphylococcus aureus | CPT/HCPCS: 87070 ==

== ENCOUNTER 2021-12-05 10:56 | Day surgery (SDC) | payer MEDICARE ==
[2021-12-01 14:40] VITALS: BMI 29.7
--- NOTE | 2021-12-04 09:54 | HP ---
HISTORY AND PHYSICAL CHIEF COMPLAINT: Right shoulder pain. HISTORY OF PRESENT ILLNESS: The patient is a 71-year-old [id number] retired female who presents with progressive right shoulder pain for the past several years. It is worsening recently. She notes stiffness along with pain with any attempted overhead motion. She is having night symptoms. She has tried medications along with home exercises, without much relief. She notes daily pain that limits her. PAST MEDICAL HISTORY: Significant for hypercholesterolemia, hypertension along with arthritis. PAST SURGICAL HISTORY: Significant for cholecystectomy and bilateral total hip arthroplasty. CURRENT MEDICATIONS: Lasix, lisinopril, lovastatin, metoprolol and Celebrex. ALLERGIES: SHE DENIES DRUG ALLERGIES. FAMILY HISTORY: Significant for cancer. SOCIAL HISTORY: Negative for current tobacco or alcohol use. REVIEW OF SYSTEMS: Sixteen-point review of systems otherwise reviewed and is noncontributory. PHYSICAL EXAMINATION: On examination, the patient is approximately 5 feet 6 inches, 197 pounds of mesomorphic habitus. HEENT exam is nonfocal. Neck is supple. On examination of her right shoulder, she is tender about the anterior subacromial space. She has moderate crepitus. Active range of motion: Forward elevation 70 degrees, external rotation with arm at side 10 degrees, internal rotation to L5. Passively I am able to forward-elevate her to 80 degrees. Motor strength 5 minus over 5 for abduction and external rotation. Impingement test, Neer test and Speed test are positive. Her distal neurovascular exam appears intact in the right upper extremity. AP and outlet views of the right shoulder obtained in the office show severe osteoarthrosis with subchondral sclerosis and inferior humeral head spurring. IMPRESSION: Right severe glenohumeral joint osteoarthrosis. RECOMMENDATIONS: I talked to the patient at length regarding her condition along with treatment options. At this point she is quite symptomatic and limited because of pain related to her osteoarthrosis despite previous conservative measures. After thorough discussion, she opts to proceed with surgery. We will plan to proceed with right total shoulder arthroplasty. Risks and benefits were discussed at length in layman's terms. MMODL / RUBINAN: [id number] /
[~2021-12-05 10:56] MED LIST changes: -ACETAMINOPHEN TAB 500 MG TAB PO ONE; +ACETAMINOPHEN TAB 500 MG TAB PO PRN; +DEXAMETHASONE SOD PHOSPHATE 4 MG/ML 1 ML VIAL IV ONE; +LIDOCAINE 1% (10MG/ML) FOR IV START INTRADERMA PRN; -MELOXICAM 7.5 MG TAB PO ONE; +MELOXICAM 7.5 MG TAB PO PRN; +MIDAZOLAM 2 MG/2 ML VIAL IV PRN; -TRANEXAMIC ACID 1,000 MG in SODIUM CHLORIDE 0.9% 100 ML IVPB ONE; +TRANEXAMIC ACID IN NACL,ISO-OS 1,000 MG in SALINE 1 100ML.BAG IVPB PRN; +fentaNYL (PF) 50 MCG/ML 2 ML AMP IVP PRN
[2021-12-05] MEDS: LACTATED RINGERS 1,000 ML IV SCH ×2 (11:34→12:41)
[2021-12-05] MEDS: ONDANSETRON 4 MG/2 ML VIAL IVP PRN ×2 (11:43→15:58)
[2021-12-05] MEDS ORDERED: MIDAZOLAM 2 MG/2 ML VIAL IVP ONE (12:02)
--- NOTE | 2021-12-05 12:16 | P.ANPRN ---
Procedure Note - Anesthesia - Nerve Block Performed Right Interscalene Time Out Performed: Yes (12:01) Date of Procedure: 12/05/21 Procedure Start Time: : Procedure Stop Time: 12:11 Location of Patient: PreOp Indication: Acute Post-Operative Pain, Requested by Surgeon Sedation Type: Sedate with meaningful contact maintained Preparation: Sterile Prep Position: Supine Catheter: None Needle Types: Touhy (22g) Ultrasound used to visualize needle placement: Yes Ultrasound used to observe medication spread: Yes Injectate: 0.5% Ropivacaine (see comment for volume) (20cc) Blood Aspirated: No Pain Paresthesia on Injection Noted: No Resistance on Injection: Normal Image Stored and Saved: Yes Events: Uneventful and Well Tolerated
[2021-12-05] MEDS ORDERED: TRANEXAMIC ACID IN NACL,ISO-OS 1,000 MG/100 ML BAG ONE (12:39)
[2021-12-05] MEDS ORDERED: NEOSTIGMINE 1 MG/ML 10 ML VIAL ONE (12:39)
[2021-12-05] MEDS ORDERED: MIDAZOLAM 2 MG/2 ML VIAL ONE (12:39)
[2021-12-05] MEDS ORDERED: LIDOCAINE 2% INJ 20 MG/ML (2 ML VIAL) ONE (12:39)
[2021-12-05] MEDS ORDERED: ePHEDrine 50 MG/ML 1 ML VIAL ONE (12:39)
[2021-12-05] MEDS ORDERED: PROPOFOL 10 MG/ML 20 ML VIAL IV ONE (12:39)
[2021-12-05] MEDS ORDERED: GLYCOPYRROLATE 0.2 MG/ML 2 ML VIAL ONE (12:39)
[2021-12-05] MEDS ORDERED: SUCCINYLCHOLINE CHLORIDE 100 MG/5 ML SYR IV ONE (12:39)
[2021-12-05] MEDS ORDERED: ROCURONIUM 10 MG/ML (5 ML VIAL) IV ONE (12:39)
[2021-12-05] MEDS ORDERED: ROPIVACAINE 5 MG/ML 30 ML VIAL ONE (12:39)
[2021-12-05] MEDS ORDERED: fentaNYL (PF) 50 MCG/ML 2 ML AMP ONE (12:39)
[2021-12-05] MEDS ORDERED: ceFAZolin 1,000 MG in SODIUM CHLORIDE 0.9% 1,000 ML IRRIGATION ONE (13:24)
[2021-12-05] MEDS ORDERED: SENNOSIDES-DOCUSATE SODIUM 1 EACH TAB PO PRN (13:33)
[2021-12-05] MEDS ORDERED: HYDROcodone/APAP 5-325MG 1 EACH TAB PO PRN (13:33)
[2021-12-05] MEDS ORDERED: HYDROmorphone 0.5 MG/0.5 ML SYRINGE IVP PRN ×2 (13:33)
[2021-12-05] MEDS ORDERED: LACTATED RINGERS 1,000 ML IV ONE (14:53)
--- NOTE | 2021-12-05 15:12 | P.OP ---
Date of Procedure: 12/05/21 Preoperative Diagnosis: Severe right glenohumeral joint osteoarthrosis Postoperative Diagnosis: Same Procedure(s) Performed: Right total shoulder arthroplasty Implants: Arthrex Eclipse size 41 trunnion, small cage screw, 41/18 humeral head, small cemented glenoid component. Anesthesia: [facility] Surgeon: Shadi Erickson Assistant Customer Service Manager #1: Allen Aldridge Estimated Blood Loss (ml): 100 Pathology: other (Humeral head) Condition: stable Disposition: PACU Indications for Procedure: The patient is a 71-year-old female who presents with progressive right shoulder pain secondary to osteoarthrosis despite conservative measures. He discussion of the risks and benefits of operative intervention versus continued conservative measures was made with patient. She opted to proceed with surgery. Operative risks to include infection, neurovascular injury, development of blood clots, possible component loosening, possible instability, possible fracture, possible need for subsequent procedures was discussed. Informed consent was obtained. Operative Findings: As below Description of Procedure: The patient was brought to the operating room, and after induction of general anesthesia was placed in the beachchair position. The bony prominences were appropriately padded. The right upper extremity was prepped and draped in normal fashion. A deltopectoral incision was then made lateral to the coracoid process extending approximately 12 cm. The skin was incised sharply. Subcutaneous tissues were divided bluntly. Electrocautery was used for hemostasis. The deltopectoral interval was identified and the cephalic vein gently retracted laterally with the deltoid. Subdeltoid adhesions were bluntly dissected. A self-retaining retractor was placed. The clavipectoral fascia was opened and the conjoined tendon gently retracted medially. The upper one third of the pectoralis major was released to help facilitate exposure. The biceps was identified and the sheath was opened. The rotator interval was opened. The biceps was tenotomized and allowed to retract distally. A subscapularis peeled was performed and it was tagged with #2 Ethibond suture. The humeral head was then exposed releasing the capsule off the humeral neck. The shoulder was gently dislocated. The cutting guide was placed planning on a cut flush with the rotator cuff insertion and 30 of retroversion. The cutting block was pinned in place. The humeral head cut was then made. This measured most appropriately at 41 mm. Residual inferior osteophytes were carefully removed flush with the [place] cortical bone. The proximal humerus was then prepared with the appropriate reamer and a protector plate was placed. A posterior glenoid retractor was placed. The glenoid was then exposed releasing the labrum from the 12-6 o'clock position. Residual labral tissue was removed. The glenoid sized most appropriately at a small. A guidewire was then inserted planning on the appropriate version. The glenoid was reamed down to a bleeding bony surface. The superior peg hole was drilled. The the peripheral peg holes were drilled. The inferior row was completed with a punch. The trial size glenoid glenoid was placed and was fully seated. There was good anterior to posterior and inferior to superior fit. The trial component was removed. Pulsatile lavage was utilized. The bony surface was dried. The peripheral peg holes were then pressurized with cement utilizing a syringe. Excess cement was removed. The glenoid component was then placed and was fully seated. This was gently impacted. This was held in place until the cement had sufficiently hardened. Attention was then paid again towards preparing the proximal humerus. The baseplate and compression screw was inserted with good purchase. A short compression screw was utilized. 2 push lock anchors were placed along the medial lesser tuberosity for reattachment of the subscapularis. Trial reduction was performed with a 41/18 head. The shoulder was gently reduced. It was taken through a range of motion. It was felt to be stable in flexion and extension with internal and external rotation. I felt there was adequate congregation of soft tissue tension. The shoulder was gently dislocated. The trial head was then removed. The final head was then placed and was gently impacted. The subscapularis repair was then completed utilizing 2 lateral swivel lock anchors. The rotator interval was closed with interrupted #2 Ethibond suture. Pulsatile lavage was utilized. She had minimal drainage at this point therefore a deep drain was not placed. The deltopectoral interval was closed with interrupted 2- 0 Vicryl sutures. The subcu tissues were reapproximated with interrupted 2-0 Vicryl sutures. The skin was reapproximated with 3-0 subcuticular Prolene suture. Steri-Strips were applied. A sterile dressing was applied in addition to a sling. The patient was then awoken from general anesthesia and transferred to recovery room in good condition. Blood loss was estimated at 100 mL. No complications were incurred. Sponge and needle counts were correct at the end the case. Theron BARTHOLOMEW assisted of the major components the case to include positioning, exposure, resection, implantation, and closure.
--- NOTE | 2021-12-05 15:39 | XR ---
EXAMINATION TYPE: XR shoulder limited RT DATE OF EXAM: 12/05/2021 COMPARISON: Right shoulder x-ray 2017 HISTORY: Postop right shoulder. Pain and arthritis. TECHNIQUE: Single frontal view right shoulder obtained immediately postoperatively. FINDINGS: Metallic hardware from shoulder hemiarthroplasty with metallic component superior medial hu meral head and surrounding surgical clips. Position is satisfactory on frontal projection. Surroundin g soft tissue swelling and subcutaneous gas noted consistent with recent surgery. IMPRESSION: As above.
[2021-12-05] MEDS: HYDROmorphone 0.5 MG/0.5 ML SYRINGE IVP PRN ×2 (15:43→15:55)
[2021-12-05] MEDS ORDERED: NAPHAZOLINE-PHENIRA 0.025-0.3% DROPS 15 ML BTL LEFT EYE PRN (18:25)
[2021-12-06] MEDS: HYDROcodone/APAP 5-325MG 1 EACH TAB PO PRN ×2 (05:27→11:53)
[2021-12-06] MEDS: LACTATED RINGERS 1,000 ML IV SCH (07:03)
[2021-12-06 08:02] VITALS: BP 122/63; PULSE 56; RESP 18; TEMP 97.5
[2021-12-06] MEDS ORDERED: ASPIRIN 325 MG TAB PO SCH (09:00)
[2021-12-06] MEDS ORDERED: PANTOPRAZOLE 40 MG/10 ML VIAL IVP SCH (10:00)
[2021-12-06 10:11] LABS: Basophils # (A) 0.01 X 10*3/uL (0.00-0.10); Basophils % (A) 0.1 %; Eosinophils # (A) 0 X 10*3/uL (0.04-0.35); Eosinophils % (A) 0 %; HCT 32.5 % (37.2-46.3); HGB 10.1 g/dL (12.0-15.0); Immature Grans, Automated 0.9 %; Lymphocytes # (A) 1.16 X 10*3/uL (0.90-5.00); Lymphocytes % (A) 10.9 %; MCH 31.6 pg (27.0-32.0); MCHC 31.1 g/dL (32.0-37.0); MCV 101.6 fL (80.0-97.0); Mean Platelet Volume 10.4 fL (9.5-12.2); Monocytes # (A) 0.97 X 10*3/uL (0.20-1.00); Monocytes % (A) 9.1 %; NRBC Per 100 WBC 0 /100 WBCS (0.0-0.0); Platelet Count 167 X 10*3/uL (140-440); RDW 13.8 % (11.5-14.5); WBC 10.64 X 10*3/uL (4.50-10.00)
--- NOTE | 2021-12-06 11:37 | P.DS ---
Providers Date of admission: 12/05/21 Expected date of discharge: 12/06/21 Attending physician: Shadi Erickson Consults: 12/05/21 13:39 Consult Physician Routine Consulting Provider: Maico Maynard Consult Reason/Comments: Medical Management s/p total shoulder arthroplasty Do you want consulting provider notified?: Yes Primary care physician: Maico Maynard Hospital Course: Date of admission: 12/05/2021 Date of discharge: 12/06/2021 Admission diagnosis: Severe right glenohumeral joint osteoarthrosis Discharge diagnosis: Same Attending physician: Dr. Erickson Surgical procedures: Right total shoulder arthroplasty Brief history: Patient is a 71-year-old female with a history of progressive primary right glenohumeral joint osteoarthrosis. At this point patient has failed conservative treatment measures and has opted to proceed with a elective right total shoulder arthroplasty. Hospital course: Details of patient's surgery can be found in operative report. Patient tolerated the procedure well and was subsequently transported to orthopedic floor. Patient's orthopeidc and medical care was provided daily. Patient had daily laboratory tests performed for evaluation of overall blood counts. Patient had daily physical therapy to include strengthening range of motion as well as education with walker ambulation. Patient was treated with aspirin for their postoperative DVT prophylaxis during their inpatient stay. Patient was noted to have a relatively uneventful postoperative course. Patient reported satisfactory pain control with oral pain medications by postoperative day 1. Patient showed satisfactory progress with physical therapy. Patient moved steadily through the program and had no difficulty meeting the goals by postoperative day 1. Given patient's otherwise satisfactory course and having met physical therapy goals, plan is to discharge patient home on postoperative day 1. Discharge condition/disposition: Patient will be discharged home in stable condition. Discharge medications: Instructions are given on resumption of patient's normal daily medications per primary care recommendation, in addition patient will be prescribed [place] 5 mg/325 mg; aspirin 325 mg daily 30 days; Colace. Orthopedic Discharge Instructions: 1. Wound care and infection precautions, keep incision dry and covered while showering, no lotions, creams, moisturizers. No soaking, pools, hot tubs. Do not scrub over incision. 2. Non-weight bearing right upper extremity. weight bearing as tolerated bilateral lower and left upper extremity 3. Ice when necessary. Do not exceed 20 minutes per hour with ice pack. 4. Keep right arm in sling at all times. May remove to shower. 5. Pain meds and anticoagulants per prescription. 6. Pain medication has potential to cause constipation. Increase oral fluid and fiber intake. Contact primary care provider if you have not had a bowel movement within 48 hours after discharge. 7. No anti-inflammatory medication until discussed at first post operative visit, this including Motrin, Aleve, Mobic, Diclofenac. 8. Follow up in office at 2 weeks postop with Theron Aldridge PA-C / Guzman Hernandez PA-C 9. Follow up with your primary care doctor 7-10 days after discharge. 10. Contact [facility] with any questions, . Medications: [place] 5 mg/325 mg; aspirin 325 mg daily times 30 days; Colace Keep incision clean, dry, intact. While showering, cover incision with saran wrap. Keep steri-strips on until follow-up appointment in office in 2 weeks Assessment: Right glenohumeral joint severe osteoarthrosis Procedures: Right total shoulder arthroplasty Patient Condition at Discharge: Good Plan - Discharge Summary Discharge Rx Participant: Yes New Discharge Prescriptions: New Aspirin 325 mg PO DAILY #30 tab HYDROcodone/APAP 5-325MG [[place] 5-325] 1 - 2 tab PO Q6HR PRN #32 tab PRN Reason: Pain Docusate [Colace] 100 mg PO DAILY #30 capsule No Action lisinopriL [Prinivil] 20 mg PO BID Metoprolol Tartrate [Lopressor] 50 mg PO DAILY Furosemide [Lasix] 20 mg PO DAILY Lovastatin [Mevacor] 40 mg PO BID Potassium Chloride [Potassium Chloride ER] 20 meq PO DAILY Discharge Medication List Furosemide [Lasix] 20 mg PO DAILY 03/29/17 [History] Lovastatin [Mevacor] 40 mg PO BID 03/29/17 [History] Metoprolol Tartrate [Lopressor] 50 mg PO DAILY 03/29/17 [History] lisinopriL [Prinivil] 20 mg PO BID 03/29/17 [History] Potassium Chloride [Potassium Chloride ER] 20 meq PO DAILY 02/15/20 [History] Aspirin 325 mg PO DAILY #30 tab 12/06/21 [Rx] Docusate [Colace] 100 mg PO DAILY #30 capsule 12/06/21 [Rx] HYDROcodone/APAP 5-325MG [[place] 5-325] 1 - 2 tab PO Q6HR PRN #32 tab 12/06/21 [Rx] Follow up Appointment(s)/Referral(s): Guzman Hernandez PAC [[facility]] - 2 Weeks Maico Maynard MD [Primary Care Provider] - 1 Week Patient Instructions/Handouts: Shoulder Arthroplasty (DC) Activity/Diet/Wound Care/Special Instructions: Orthopedic Discharge Instructions: 1. Wound care and infection precautions, keep incision dry and covered while s howering, no lotions, creams, moisturizers. No soaking, pools, hot tubs. Do not scrub over incision. 2. Non-weight bearing right upper extremity. weight bearing as tolerated bilateral lower and left upper extremity 3. Ice when necessary. Do not exceed 20 minutes per hour with ice pack. 4. Keep right arm in sling at all times. May remove to shower. 5. Pain meds and anticoagulants per prescription. 6. Pain medication has potential to cause constipation. Increase oral fluid and fiber intake. Contact primary care provider if you have not had a bowel movement within 48 hours after discharge. 7. No anti-inflammatory medication until discussed at first post operative visit, this including Motrin, Aleve, Mobic, Diclofenac. 8. Follow up in office at 2 weeks postop with Theron Aldridge PA-C / Guzman Hernandez PA-C 9. Follow up with your primary care doctor 7-10 days after discharge. 10. Contact [facility] with any questions, . Medications: [place] 5 mg/325 mg; aspirin 325 mg daily times 30 days; Colace Keep incision clean, dry, intact. While showering, cover incision with saran wrap. Keep steri-strips on until follow-up appointment in office in 2 weeks Discharge Disposition: HOME WITH HOME HEALTH SERVICES
--- NOTE | 2021-12-06 11:54 | P.PN ---
Subjective Progress Note Date: 12/06/21 Principal diagnosis: Severe right glenohumeral joint osteoarthrosis Patient was seen at bedside this morning resting comfortably lying in the semirecumbent postion with sling on right upper extremity. Patient says she is in moderate amount of pain in right shoulder. She says pain medication does help ease the pain a bit. Patient says she is ready to go home. Patient denies chest pain, fever, shortness of breath, nausea, vomiting, change in vision, loss of bowel control. Objective - Vital Signs Vital signs: Vital Signs Temp 97.5 F L 12/06/21 07:03 Pulse 56 L 12/06/21 07:03 Resp 18 12/06/21 07:03 BP 122/63 12/06/21 07:03 Pulse Ox 95 12/06/21 07:03 Intake & Output 12/05/21 12/06/21 12/06/21 18:59 06:59 18:59 Intake Total 1051 Output Total 100 Balance 951 Weight 83.6 kg Intake: IV 1051 Output: Estimated Blood Loss 100 Other: Voiding Method Bedside Commode # Voids 0 1 # Bowel Movements 0 - Exam Right shoulder: Incision is clean, dry, and intact. The steri-strips and dressing are in good condition. Patient has full range of motion in flexion-extension of the right elbow and wrist. Patient is able to wiggle digits in right upper extremity. Radial pulses intact, 2+ bilaterally. There is minimal soft tissue swelling and ecchymosis surrounding the incision and near right axilla. Calf is soft, no tenderness with palpation. Plantar flexion, dorsiflexion, EHL, FHL are intact. Sensory exam to light touch throughout the extremity is intact, dorsal pedis pulses 2+. - Labs CBC & Chem 7: 12/06/21 05:45 Assessment and Plan Assessment: Severe right glenohumeral joint osteoarthrosis Postoperative day 1 status post right total shoulder arthroplasty Plan: 1. Severe right glenohumeral joint osteoarthrosis - surgery performed yesterday, 12/05/2021 - right total shoulder arthroplasty. Patient stable at bedside this morning. Plan discharge home today with health services. 2. Appreciate medical management 3. Pain management - [place] 4. DVT prophylaxis - aspirin 325 mg daily 30 days 5. GI prophylaxis - Colace 6. PT/OT - sling to right upper extremity; nonweightbearing right upper extremity 7. Encourage incentive spirometer use 8. Discharge planning - discharge home today with health services Time with Patient: Less than 30
--- NOTE | 2021-12-06 12:48 | P.CONS ---
History of Present Illness - Reason for Consult Consult date: 12/06/21 Medical management hypertension Requesting physician: Shadi Erickson - Chief Complaint Osteoarthritis status post - History of Present Illness A 71-year-old female with past medical history of hyperlipidemia, hypertension, osteoarthritis, former nicotine dependence and multiple other medical issues, status post right total shoulder arthroplasty secondary to severe right g lenohumeral joint osteoarthrosis. Tolerated procedure well. Wearing sling on the affected estremity, positive pain-controlled on current management. Passing flatus. Denies chest pain, palpitations or shortness of breath. Denies lightheadedness dizziness or focal deficits. Planning on discharge home later today. Review of Systems Constitutional: Denied any fatigue denied any fever. Cardio vascular: denied any chest pain, palpitations Gastrointestinal denied any nausea vomiting Pulmonary: Denied any shortness of breath cough Neurologic denied any new focal deficits ROS Statement: Those systems with pertinent positive or pertinent negative responses have been documented in the HPI. ROS Other: All systems not noted in ROS Statement are negative. Past Medical History Past Medical History: Hyperlipidemia, Hypertension, Osteoarthritis (OA) Additional Past Medical History / Comment(s): WEARS SUPPORT STOCKINGS. HEART MURMUR. History of Any Multi-Drug Resistant Organisms: None Reported Past Surgical History: Cholecystectomy, Joint Replacement Additional Past Surgical History / Comment(s): COLONOSCOPY, bilateral hip replacements, left hip x2, right shoulder replacement Past Anesthesia/Blood Transfusion Reactions: No Reported Reaction Past Psychological History: No Psychological Hx Reported Smoking Status: Former smoker Past Alcohol Use History: Rare Additional Past Alcohol Use History / Comment(s): SMOKED OCC FOR MANY YEARS, NONE SINCE 1996 EST Past Drug Use History: None Reported - Past Family History Mother Family Medical History: Cancer Medications and Allergies Home Medications Medication Instructions Recorded Confirmed Type Furosemide [Lasix] 20 mg PO DAILY 03/29/17 12/05/21 History Lovastatin [Mevacor] 40 mg PO BID 03/29/17 12/05/21 History Metoprolol Tartrate [Lopressor] 50 mg PO DAILY 03/29/17 12/05/21 History lisinopriL [Prinivil] 20 mg PO BID 03/29/17 12/05/21 History Potassium Chloride [Potassium 20 meq PO DAILY 02/15/20 12/05/21 History Chloride ER] Aspirin 325 mg PO DAILY #30 tab 12/06/21 Rx Docusate [Colace] 100 mg PO DAILY #30 capsule 12/06/21 Rx HYDROcodone/APAP 5-325MG [[place] 1 - 2 tab PO Q6HR PRN #32 tab 12/06/21 Rx 5-325] Allergies Allergy/AdvReac Type Severity Reaction Status Date / Time No Known Allergies Allergy Verified 12/05/21 11:32 Physical Exam Vitals: Vital Signs Temp Pulse Pulse Pulse Resp BP Pulse Ox 12/06/21 07:03 97.5 F L 56 L 18 122/63 95 12/06/21 00:56 97.7 F 74 16 135/65 96 12/05/21 20:00 16 12/05/21 19:20 97.9 F 55 L 14 134/59 95 12/05/21 16:16 58 L 16 144/59 100 12/05/21 16:02 54 L 16 133/63 100 12/05/21 15:46 55 L 16 142/67 100 12/05/21 15:31 60 18 137/72 100 12/05/21 15:15 61 18 137/65 100 12/05/21 15:10 97.3 F L 70 18 152/66 100 12/05/21 12:15 56 L 18 186/76 96 12/05/21 11:37 97.3 F L 66 18 173/87 96 Intake and Output 12/05/21 12/06/21 12/06/21 22:59 06:59 14:59 Intake Total 0 Balance 0 Intake: IV 0 Other: Voiding Method Bedside Commode # Voids 1 1 # Bowel Movements 0 Weight 83.6 kg Severe right glenohumeral joint osteoarthrosis, status post Right total shoulder arthroplasty Atelectasis Hypertension Hyperlipidemia Former nicotine dependence Plan: Continue on current medication regime ,monitoring and symptomatic treatment. Aggressive pulmonary toileting with incentive spirometer ordered. Pain management and DVT prophylaxis as per primary. Significant, cold improvement. Discharge planning in progress. Follow up with PCP Dr. Maynard in 1 week. The impression and plan of care has been dictated as directed. : I performed a history and examination of this patient, discussed the same with the dictator. I agree with the dictator's note ,documented as a scribe. Any additional findings or plans will be noted. Results CBC & Chem 7: 12/06/21 05:45
== END 2021-12-06 15:20 | disposition home health service (06) ==
LOC: OR 10:56 → 4SSUR 15:10 → OR 12-06 15:20
PROVIDERS: ATTEND Orthopaedic Surgery
DX: M19.011 Primary osteoarthritis, right shoulder (principal); E78.00 Pure hypercholesterolemia, unspecified; I10 Essential (primary) hypertension; E78.5 Hyperlipidemia, unspecified; R01.1 Cardiac murmur, unspecified; Z90.49 Acquired absence of other specified parts of digestive tract; Z96.643 Presence of artificial hip joint, bilateral; Z80.9 Family history of malignant neoplasm, unspecified; Z87.891 Personal history of nicotine dependence; Z79.82 Long term (current) use of aspirin; Z79.899 Other long term (current) drug therapy
CPT/HCPCS: 64415; 76942; 85025; 88300; 73020; 23472; C1776; J2250; J1100; J2710; J0690 ×3; J2405; J3010; J2795; J0330; J2704; J1170; J2001

== ENCOUNTER → 2023-01-08 | Outpatient (CLI) | payer MEDICARE ==
[2023-01-08 16:13] LABS: ALT 10 U/L; AST 27 U/L; Albumin 4.2 d/dL; Alkaline Phosphatase 72 U/L; Blood Urea Nitrogen 14.4 mg/dL; Calcium 9.4 mg/dL; Carbon Dioxide 22.6 mmol/L; Chloride 104 mmol/L; Globulin 2.8 d/dL; Glucose 115 mg/dL; Potassium 4.9 mmol/L; Sodium 138 mmol/L; Total Bilirubin 0.5 mg/dL
[2023-01-08 16:43] LABS: INR <0.93 sec; Prothrombin Time 10.3 sec
[2023-01-08 20:22] LABS: Basophils # (A) 0.07 X 10*3/uL; Eosinophils # (A) 0.11 X 10*3/uL; Eosinophils % (A) 1.6 %; HCT 41.5 %; HGB 13.9 d/dL; Lymphocytes # (A) 1.92 X 10*3/uL; Lymphocytes % (A) 27.3 %; MCH 32.3 pg; MCHC 33.5 d/dL; MCV 96.5 FL; Mean Platelet Volume 10.9 FL; Monocytes # (A) 0.45 X 10*3/uL; Monocytes % (A) 6.4 %; NRBC Per 100 WBC 0 X 10*3/uL; Neutrophils # (A) 4.47 X 10*3/uL; Neutrophils % (A) 63.6 %; Platelet Count 212 X 10*3/uL; RBC Morphology Normal; RDW 13.6 %; WBC 7.03 X 10*3/uL
== END | disposition home or self-care (01) ==
LOC: LABWHC1 09:54
PROVIDERS: ATTEND Family Medicine
DX: Z01.812 Encounter for preprocedural laboratory examination (principal); I11.0 Hypertensive heart disease with heart failure; I50.9 Heart failure, unspecified; E78.2 Mixed hyperlipidemia; I44.4 Left anterior fascicular block; R00.1 Bradycardia, unspecified; R94.31 Abnormal electrocardiogram [ECG] [EKG]
CPT/HCPCS: 36415; 80053; 85025; 85610; 93005

== ENCOUNTER 2023-01-15 10:21 | Day surgery (SDC) | payer MEDICARE ==
[2023-01-11 10:25] VITALS: BMI 27.2
--- NOTE | 2023-01-14 09:03 | P.HPOR ---
History of Present Illness H&P Date: 01/14/23 Chief Complaint: Left shoulder pain The patient is a 72-year-old [id number] retired female who presents with progressive left shoulder pain for the past several months worsening recently. She denies any recent trauma. She is having pain with any attempted overhead use. She is having night symptoms. She's tried medications in addition to activity modifications without much relief. Review of Systems Negative except as in HPI Past Medical History Past Medical History: Hyperlipidemia, Hypertension, Osteoarthritis (OA) Additional Past Medical History / Comment(s): HEART MURMUR. History of Any Multi-Drug Resistant Organisms: None Reported Past Surgical History: Cholecystectomy, Joint Replacement, Orthopedic Surgery Additional Past Surgical History / Comment(s): Colonoscopy, bilateral hip replacements, left hip surgery X2, right shoulder replacement. Past Anesthesia/Blood Transfusion Reactions: No Reported Reaction Past Psychological History: No Psychological Hx Reported Smoking Status: Former smoker Past Alcohol Use History: Rare Additional Past Alcohol Use History / Comment(s): SMOKED OCCASIONALLY FOR MANY YEARS, QUIT IN 1996. Past Drug Use History: None Reported - Past Family History Mother Family Medical History: Cancer Medications and Allergies Home Medications Medication Instructions Recorded Confirmed Type Furosemide [Lasix] 10 mg PO DAILY 03/29/17 01/11/23 History Lovastatin [Mevacor] 40 mg PO BID 03/29/17 01/11/23 History Metoprolol Tartrate [Lopressor] 50 mg PO BID 03/29/17 01/11/23 History lisinopriL [Prinivil] 20 mg PO BID 03/29/17 01/11/23 History Potassium Chloride [Potassium 20 meq PO DAILY 02/15/20 01/11/23 History Chloride ER] Allergies Allergy/AdvReac Type Severity Reaction Status Date / Time No Known Allergies Allergy Verified 01/11/23 10:11 Physical Examination - Shoulder left Appearance: effusion Effusion grade: grade 1 Tenderness with palpation: anterior Pain: with abduction, with forward flexion ROM: forward flexion: 80 degrees ROM: internal rotation: lower lumbar ROM: external rotation: 20 degrees Crepitus with motion: Yes Strength: abduction: 5/5 Strength: external rotation: 5/5 Tests: internal impingement tests: positive, external impingment tests: positive Results The patient is a well-developed well-nourished female approximately 5 foot 7, 189 pounds of endomorphic habitus. HEENT exam is nonfocal, neck is supple. She's tender about the left anterior glenohumeral joint. She has limited range of motion left shoulder actively and passively. Her distal neurovascular appears intact in the left upper extremity. - Diagnostic results Shoulder x-ray: image reviewed (3 views of the left shoulder pain the office show severe left glenohumeral joint osteoarthrosis with subchondral sclerosis and dail-mi-[id number] changes.) Assessment and Plan Assessment: Left severe glenohumeral joint osteoarthrosis Plan: I talked to the patient regarding her condition along with treatment options. At this point she is quite limited because of pain related to her left shoulder arthritis despite conservative measures. After thorough discussion she has proceed with surgery. We'll plan proceed with left total shoulder arthroplasty. Risks and benefits were discussed at length in layman's terms.
[~2023-01-15 10:21] MED LIST changes: +HYDROmorphone 0.5 MG/0.5 ML SYRINGE IVP PRN; +LACTATED RINGERS 1,000 ML IV SCH; +METOCLOPRAMIDE 5 MG/ML 2 ML VIAL IVP PRN; -MIDAZOLAM 2 MG/2 ML VIAL IV PRN; +ONDANSETRON 4 MG/2 ML VIAL IVP ONE; -fentaNYL (PF) 50 MCG/ML 2 ML AMP IVP PRN
[2023-01-15] MEDS ORDERED: MIDAZOLAM 2 MG/2 ML VIAL IV ONE (11:57)
[2023-01-15] MEDS ORDERED: ROPIVACAINE 5 MG/ML 30 ML VIAL ONE (13:10)
[2023-01-15] MEDS ORDERED: WATER FOR INJECTION, STERILE 10 ML VIAL IV ONE (13:10)
[2023-01-15] MEDS ORDERED: fentaNYL (PF) 50 MCG/ML 2 ML AMP ONE (13:10)
[2023-01-15] MEDS ORDERED: MIDAZOLAM 2 MG/2 ML VIAL ONE (13:10)
[2023-01-15] MEDS ORDERED: NEOSTIGMINE 1 MG/ML 10 ML VIAL ONE (13:10)
[2023-01-15] MEDS ORDERED: PROPOFOL 10 MG/ML 20 ML VIAL IV ONE (13:10)
[2023-01-15] MEDS ORDERED: ePHEDrine 50 MG/ML 1 ML VIAL ONE (13:10)
[2023-01-15] MEDS ORDERED: GLYCOPYRROLATE 0.2 MG/ML 2 ML VIAL ONE (13:10)
[2023-01-15] MEDS ORDERED: LIDOCAINE 2% INJ 20 MG/ML (2 ML VIAL) ONE (13:10)
[2023-01-15] MEDS ORDERED: TRANEXAMIC ACID IN NACL,ISO-OS 1,000 MG/100 ML BAG ONE (13:10)
[2023-01-15] MEDS ORDERED: SUCCINYLCHOLINE CHLORIDE 200 MG/10 ML VIAL IV ONE (13:10)
[2023-01-15] MEDS ORDERED: ROCURONIUM 10 MG/ML (5 ML VIAL) IV ONE (13:10)
[2023-01-15] MEDS ORDERED: SODIUM CHLORIDE 0.9% 1,000 ML IRRIGATION ONE (13:57)
--- NOTE | 2023-01-15 14:11 | P.ANPRN ---
Procedure Note - Anesthesia - Nerve Block Performed Left Interscalene Single Time Out Performed: Yes ([id number]) Date of Procedure: 01/15/23 Procedure Start Time: 11:57 Procedure Stop Time: 12:03 Location of Patient: PreOp Indication: Acute Post-Operative Pain, Requested by Surgeon Specifically requested for management of pain by : Shadi Erickson Sedation Type: Sedate with meaningful contact maintained Preparation: Sterile Prep Position: Supine Catheter: None Needle Types: Pajunk Needle Gauge: 21 Ultrasound used to visualize needle placement: Yes Ultrasound used to observe medication spread: Yes Injectate: 0.5% Ropivacaine (see comment for volume) (30cc) Blood Aspirated: No Pain Paresthesia on Injection Noted: No Resistance on Injection: Normal Image Stored and Saved: Yes Events: Uneventful and Well Tolerated
[2023-01-15] MEDS ORDERED: LACTATED RINGERS 1,000 ML IV ONE (15:00)
[2023-01-15] MEDS ORDERED: SENNOSIDES-DOCUSATE SODIUM 1 EACH TAB PO PRN (15:04)
[2023-01-15] MEDS ORDERED: HYDROcodone/APAP 5-325MG 1 EACH TAB PO PRN (15:04)
[2023-01-15] MEDS ORDERED: HYDROmorphone 0.5 MG/0.5 ML SYRINGE IVP PRN ×2 (15:04)
--- NOTE | 2023-01-15 15:25 | P.OP ---
Date of Procedure: 01/15/23 Preoperative Diagnosis: Left severe glenohumeral joint osteoarthrosis Postoperative Diagnosis: Same Procedure(s) Performed: Left total shoulder arthroplasty Implants: Arthrex 41 mm trunnion, 41 x 18 humeral head, medium cage screw, small glenoid component. Anesthesia: DANITA [facility] Surgeon: Shadi Erickson Cra Officer #1: Guzman Hernandez Estimated Blood Loss (ml): 100 Pathology: none sent Condition: stable Disposition: PACU Indications for Procedure: The patient is a 72-year-old female who presents with progressive left shoulder pain secondary to osteoarthrosis despite conservative measures. A discussion of the risks and benefits of operative intervention versus continued conservative measures was made with the patient. She opted to proceed with surgery. Operative risks to include infection, neurovascular injury, fracture, component loosening/failure and need for subsequent procedures was discussed. Informed consent was obtained. Operative Findings: As below Description of Procedure: The patient was brought to the operating room, and after induction of general anesthesia was placed in the beachchair position. The bony prominences were appropriately padded. The left upper extremity was prepped and draped in normal fashion. A deltopectoral incision was then made lateral to the coracoid process extending approximately 12 cm. The skin was incised sharply. Subcutaneous tissues were divided bluntly. Electrocautery was used for hemostasis. The deltopectoral interval was identified and the cephalic vein gently retracted laterally with the deltoid. Subdeltoid adhesions were bluntly dissected. A self-retaining retractor was placed. The clavipectoral fascia was opened and the conjoined tendon gently retracted medially. The upper one third of the pect oralis major was released to help facilitate exposure. The biceps was identified and the sheath was opened. The rotator interval was opened. The biceps was tenotomized and allowed to retract distally. A subscapularis peel was performed and the subscap was tagged with a #2 Ethibond. The humeral head was then exposed releasing the capsule off the humeral neck. The shoulder was gently dislocated. . The cutting guide was placed planning on a cut flush with the rotator cuff insertion /articular surface in 30 of retroversion. The cutting block was pinned in place. The humeral head cut was then made. Residual inferior osteophytes were carefully removed flush with the tribe cortical bone. The metaphysis was measured most appropriately 41 mm. This central portion was then prepared. A bone protector was placed. A posterior glenoid retractor was placed. The glenoid was then exposed releasing the labrum from the 6-12 o'clock position. Residual labral tissue was removed. The gl enoid sized as a small. A guidewire was then inserted planning on the appropriate version. The glenoid was reamed down to a bleeding bony surface. The central peg hole was drilled. The alignment guide was placed in the peripheral peg holes drilled. The inferior keel was punched. The trial small glenoid was placed and was fully seated. There was good anterior to posterior and inferior to superior fit. The trial component was removed. Pulsatile lavage was utilized. The bony surface was dried. The peripheral peg holes were then pressurized with cement utilizing a syringe. Excess cement was removed. A central pegged glenoid was then placed and was fully seated. This was gently impacted. This was held in place until the cement had sufficiently hardened. Attention was then paid again towards preparing the proximal humerus. A medium cage screw was planned. This was then inserted by hand and appropriately tensioned. Good purchase was obtained. A trial 41 x 16 mm humeral head was placed. The shoulder was gently reduced. It was taken through a range of motion. It was felt to be stable in flexion and extension with internal and external rotation. I felt there was adequate jewish of soft tissue tension. The shoulder was gently dislocated. The trial head was then removed. Suture tacks were then placed in the lesser tuberosity for reattachment of the subscapularis. The 41 x 18 mm humeral head was gently impacted. The shoulder was then gently reduced and taken through range of motion and was felt to be stable. Pulsatile lavage was utilized. The fiber tapes were then crisscrossed and 2 push lock anchors were placed in the bicipital groove for subscapularis reattachment. The rotator interval was closed with #2 Ethibond suture. There was minimal drainage at this point therefore a deep drain was not placed. The deltopectoral interval was closed with interrupted 2-0 Vicryl sutures. The subcu tissues were reapproximated with interrupted 2-0 Vicryl sutures. The skin was reprepped with 3-0 subcuticular Prolene suture. Steri-Strips were applied. A sterile dressing was applied in addition to a sling. The patient was then awoken from general anesthesia and transferred to recovery room in good condition. Blood loss was estimated at 100 mL. No complications were incurred. Sponge and needle counts were correct at the end the case. Guzman BARTHOLOMEW assisted to the major components the case to include positioning, exposure, resection, implantation, and closure.
--- NOTE | 2023-01-15 16:07 | XR ---
EXAMINATION TYPE: XR shoulder limited LT DATE OF EXAM: 01/15/2023 COMPARISON: NONE HISTORY: 72-year-old female postoperative evaluation TECHNIQUE: Portable AP view FINDINGS: Image shows placement of left shoulder arthroplasty. Alignment grossly anatomic. The austen l head component appears well seated. Scattered soft tissue air related to recent operation. IMPRESSION: Complicated postoperative appearance left total shoulder arthroplasty.
[2023-01-15 18:02] LABS: Basophils % (A) 0 %; Eosinophils % (A) 0 %; HCT 41.1 % (34.0-46.0); HGB 13.6 gm/dL (11.4-16.0); Lymphocytes # (A) 0.8 k/uL (1.0-4.8); Lymphocytes % (A) 7 %; MCH 32.5 pg (25.0-35.0); MCHC 33.1 g/dL (31.0-37.0); MCV 98.2 fL (80.0-100.0); Mean Platelet Volume 8.2; Monocytes # (A) 0.3 k/uL (0-1.0); Monocytes % (A) 2 %; Neutrophils % (A) 91 %; Platelet Count 186 k/uL (150-450); RBC 4.19 m/uL (3.80-5.40); RDW 13.4 % (11.5-15.5); WBC 12.2 k/uL (3.8-10.6)
[2023-01-15] MEDS: lisinopriL 20 MG TAB PO SCH (22:13)
[2023-01-15] MEDS: METOPROLOL TARTRATE 50 MG TAB PO SCH (22:14)
[2023-01-16 08:06] VITALS: RESP 16; TEMP 98.1
[2023-01-16] MEDS: HYDROcodone/APAP 5-325MG 1 EACH TAB PO PRN ×2 (08:20→14:58)
[2023-01-16] MEDS: lisinopriL 20 MG TAB PO SCH (08:41)
[2023-01-16] MEDS: METOPROLOL TARTRATE 50 MG TAB PO SCH (08:41)
[2023-01-16] MEDS ORDERED: ASPIRIN 325 MG TAB PO SCH (09:00)
--- NOTE | 2023-01-16 11:59 | P.DS ---
Providers Date of admission: 01/15/2023 Expected date of discharge: 01/16/23 Attending physician: Shadi Erickson Consults: 01/15/23 15:24 Consult Physician Routine Consulting Provider: Maico Maynard Reason/Comments: Medical Management s/p left total shoulder arthroplasty Do you want consulting provider notified?: Yes Primary care physician: Maico Maynard Hospital Course: Date of admission: 01/15/2023 Date of discharge: 01/16/2023 Admission diagnosis: Left severe glenohumeral joint osteoarthrosis Discharge diagnosis: Same Attending physician: Dr. Erickson Surgical procedures: Left total shoulder arthroplasty Brief history: Patient is a 72-year-old female with a history of left severe glenohumeral joint osteoarthrosis. At this point patient has failed conservative treatment measures and has opted to proceed with a elective left total shoulder arthroplasty. Hospital course: Details of patient's surgery can be found in operative report. Patient tolerated the procedure well and was subsequently transported to orthopedic floor. Patient's orthopeidc and medical care was provided daily. Patient had daily laboratory tests performed for evaluation of overall blood counts. Patient had daily physical therapy to include strengthening range of motion as well as education with walker ambulation. Patient was treated with aspirin for their postoperative DVT prophylaxis during their inpatient stay. Patient was noted to have a relatively uneventful postoperative course. Patient reported satisfactory pain control with oral pain medications by postoperative day 1. Patient showed satisfactory progress with physical therapy. Patient moved steadily through the program and had no difficulty meeting the goals by postoperative day 1. Given patient's otherwise satisfactory course and having met physical therapy goals, plan is to discharge patient home on postoperative day 1. Discharge condition/disposition: Patient will be discharged home in stable condition. Discharge medications: Instructions are given on resumption of patient's normal daily medications per primary care recommendation, in addition patient will be prescribed [place] 5 mg/325 mg; senna; aspirin 325 mg daily 28 days. Orthopedic Discharge Instructions: 1. Wound care and infection precautions, keep incision dry and covered while showering, no lotions, creams, moisturizers. No soaking, pools, hot tubs. Do not scrub over incision. 2. NWB left upper extremity. 3. Ice when necessary. Do not exceed 20 minutes per hour with ice pack. 4. Utilize sling to left upper extremity. 5. Pain meds and anticoagulants per prescription. 6. Pain medication has potential to cause constipation. Increase oral fluid and fiber intake. Contact primary care provider if you have not had a bowel movement within 48 hours after discharge. 7. No anti-inflammatory medication until discussed at first post operative visit, this including Motrin, Aleve, Mobic, Diclofenac. 8. Follow up in office at 2 weeks postop with Theron Aldridge PA-C / Guzman Hernandez PA-C 9. Follow up with your primary care doctor 7-10 days after discharge. 10. Contact [facility] with any questions, . keep incision clean, dry, intact. do not submerge/soak incision in water Assessment: Left severe glenohumeral joint osteoarthrosis Procedures: Left total shoulder arthroplasty Patient Condition at Discharge: Good Plan - Discharge Summary Discharge Rx Participant: Yes New Discharge Prescriptions: No Action lisinopriL [Prinivil] 20 mg PO BID Metoprolol Tartrate [Lopressor] 50 mg PO BID Furosemide [Lasix] 10 mg PO DAILY Lovastatin [Mevacor] 40 mg PO BID Potassium Chloride [Potassium Chloride ER] 20 meq PO DAILY Discharge Medication List Furosemide [Lasix] 10 mg PO DAILY 03/29/17 [History] Lovastatin [Mevacor] 40 mg PO BID 03/29/17 [History] Metoprolol Tartrate [Lopressor] 50 mg PO BID 03/29/17 [History] lisinopriL [Prinivil] 20 mg PO BID 03/29/17 [History] Potassium Chloride [Potassium Chloride ER] 20 meq PO DAILY 02/15/20 [History] Follow up Appointment(s)/Referral(s): Guzman Hernandez PAC [PHYSICIAN BINDERY PRODUCTION MANAGER] - 01/31/23 10:40 am Maico Maynard MD [Primary Care Provider] - 1 Week Patient Instructions/Handouts: Shoulder Arthroplasty (DC) Activity/Diet/Wound Care/Special Instructions: Orthopedic Discharge Instructions: 1. Wound care and infection precautions, keep incision dry and covered while showering, no lotions, creams, moisturizers. No soaking, pools, hot tubs. Do not scrub over incision. 2. NWB left upper extremity. 3. Ice when necessary. Do not exceed 20 minutes per hour with ice pack. 4. Utilize sling to left upper extremity. 5. Pain meds and anticoagulants per prescription. 6. Pain medication has potential to cause constipation. Increase oral fluid and fiber intake. Contact primary care provider if you have not had a bowel movement within 48 hours after discharge. 7. No anti-inflammatory medication until discussed at first post operative visit, this including Motrin, Aleve, Mobic, Diclofenac. 8. Follow up in office at 2 weeks postop with Theron Aldridge PA-C / Guzman Hernandez PA-C 9. Follow up with your primary care doctor 7-10 days after discharge. 10. Contact [facility] with any questions, . keep incision clean, dry, intact. do not submerge/soak incision in water Discharge Disposition: HOME SELF-CARE
--- NOTE | 2023-01-16 12:05 | P.PN ---
Subjective Progress Note Date: 01/16/23 Principal diagnosis: Left to severe glenohumeral joint osteoarthrosis Patient was seen at bedside this morning lying semirecumbent position was sling to left upper extremity and bulky dressing over left shoulder. Patient says she is hoping to go home today. Patient says her pain has been under good control since surgery yesterday. Patient says she has urinated since surgery. Patient says she has not had bowel movement yet, however, patient says she has been passing gas. Patient denies any significant numbness/tingling in the left upper extremity. Patient denies chest pain, fever, shortness of breath, nausea, vomiting, change in vision, loss of bowel/bladder control. Objective - Vital Signs Vital signs: Vital Signs Temp 98.1 F 01/16/23 07:45 Pulse 69 01/16/23 07:45 Resp 16 01/16/23 07:45 BP 150/77 01/16/23 07:45 Pulse Ox 97 01/16/23 07:45 FiO2 Intake & Output 01/15/23 01/16/23 01/16/23 18:59 06:59 18:59 Intake Total 2150 Output Total 100 Balance 2049 Weight 82.6 kg Intake: IV 2149 Output: Estimated Blood Loss 100 Other: # Voids 1 2 1 - Exam Left shoulder: Incision is clean, dry, and intact. The dressing is in good condition. There is minimal soft tissue swelling and ecchymosis surrounding the medial and lateral aspects of the incision. Calf is soft, no tenderness with palpation. Radial pulses are intact bilaterally. [place] strength 5/5 bilaterally. Patient has full range of motion of bilateral elbows. Plantar flexion, dorsiflexion, EHL, FHL are intact. Sensory exam to light touch throughout the extremity is intact, dorsal pedis pulses 2+. - Labs CBC & Chem 7: 01/15/23 17:07 Labs: Abnormal Lab Results - Last 24 Hours (Table) 01/15/23 Range/Units 17:07 WBC 12.2 H (3.8-10.6) k/uL Neutrophils # 11.0 H (1.3-7.7) k/uL Lymphocytes # 0.8 L (1.0-4.8) k/uL Assessment and Plan Assessment: 1. Left severe glenohumeral joint osteoarthrosis - Postoperative day 1 status post left total shoulder arthroplasty Plan: 1. Left severe glenohumeral joint osteoarthrosis - patient stable at bedside this morning was sleeping to upper extremity and bulky dressing in place. Pain medication as needed. Discharge home today 2. Appreciate medical management 3. Pain management - [place] 4. DVT prophylaxis - aspirin 325 mg daily 28 days 5. GI prophylaxis - senna 6. PT/OT - nonweightbearing left upper extremity. Maintain left upper extremity in sling at all times. 7. Encourage incentive spirometer use 8. Discharge planning - discharge home today Time with Patient: Less than 30
[2023-01-16 14:11] VITALS: BP 128/74; PULSE 62
--- NOTE | 2023-01-16 15:03 | P.CONS ---
History of Present Illness - Reason for Consult Consult date: 01/16/23 Medical management hypertension Requesting physician: Shadi Erickson - Chief Complaint Left severe Osteoarthrosis of the glenohumeral joint, failed conservative - History of Present Illness (This is a 72-year-old female past medical history of hypertension, hyperlipidemia, left severe Osteoarthrosis of the glenohumeral joint, failed conservative management, status post elective left total shoulder arthroplasty. Tolerated procedure well. Pain controlled. Denies chest pain, palpitations or shortness of breath. Review of Systems Constitutional: Denied any fatigue denied any fever. Cardio vascular: denied any chest pain, palpitations Gastrointestinal denied any nausea vomiting Pulmonary: Denied any shortness of breath cough Neurologic denied any new focal deficits ROS Statement: Those systems with pertinent positive or pertinent negative responses have been documented in the HPI. ROS Other: All systems not noted in ROS Statement are negative. Past Medical History Past Medical History: Hyperlipidemia, Hypertension, Osteoarthritis (OA) Additional Past Medical History / Comment(s): HEART MURMUR. History of Any Multi-Drug Resistant Organisms: None Reported Past Surgical History: Cholecystectomy, Joint Replacement, Orthopedic Surgery Additional Past Surgical History / Comment(s): Colonoscopy, bilateral hip replacements, left hip surgery X2, right shoulder replacement. Past Anesthesia/Blood Transfusion Reactions: No Reported Reaction Past Psychological History: No Psychological Hx Reported Smoking Status: Former smoker Past Alcohol Use History: Rare Additional Past Alcohol Use History / Comment(s): SMOKED OCCASIONALLY FOR MANY YEARS, QUIT IN 1996. Past Drug Use History: None Reported - Past Family History Mother Family Medical History: Cancer Medications and Allergies Home Medications Medication Instructions Recorded Confirmed Type Furosemide [Lasix] 10 mg PO DAILY 03/29/17 01/11/23 History Lovastatin [Mevacor] 40 mg PO BID 03/29/17 01/11/23 History Metoprolol Tartrate [Lopressor] 50 mg PO BID 03/29/17 01/11/23 History lisinopriL [Prinivil] 20 mg PO BID 03/29/17 01/11/23 History Potassium Chloride [Potassium 20 meq PO DAILY 02/15/20 01/11/23 History Chloride ER] Aspirin 325 mg PO DAILY #28 tab 01/16/23 Rx HYDROcodone/APAP 5-325MG [[place] 1 - 2 tab PO Q6HR PRN #36 tab 01/16/23 Rx 5-325] Sennosides/Docusate Sodium [Senna 1 each PO DAILY #20 capsule 01/16/23 Rx Plus 8.6-50 mg Softgel] Allergies Allergy/AdvReac Type Severity Reaction Status Date / Time No Known Allergies Allergy Verified 01/11/23 10:11 Physical Exam Vitals: Vital Signs Temp Pulse Resp BP Pulse Ox 01/16/23 13:35 98.1 F 62 16 128/74 95 01/16/23 07:45 98.1 F 69 16 150/77 97 01/16/23 01:40 97.7 F 54 L 19 147/71 97 01/15/23 20:00 16 01/15/23 19:24 62 137/70 95 01/15/23 19:11 54 L 126/69 97 01/15/23 18:57 56 L 127/67 01/15/23 18:41 62 80/44 96 01/15/23 18:27 73 130/67 96 01/15/23 18:11 64 145/73 97 01/15/23 17:58 71 149/68 97 01/15/23 17:43 74 172/78 95 01/15/23 17:28 77 148/64 95 01/15/23 17:20 98.7 F 68 16 178/77 98 01/15/23 16:30 58 L 16 167/81 97 01/15/23 16:15 58 L 16 166/81 100 01/15/23 16:02 57 L 16 170/79 100 01/15/23 15:45 60 16 135/75 100 01/15/23 15:28 97.2 F L 64 16 163/77 100 Intake and Output 01/15/23 01/16/23 01/16/23 22:59 06:59 14:59 Intake Total 900 Output Total 100 Balance 800 Intake: IV 900 Output: Estimated Blood Loss 100 Other: # Voids 1 2 1 Weight 82.6 kg PHYSICAL EXAM: VITAL SIGNS: As above GENERAL: Sitting up in bed, no acute distress HEENT: Normocephalic, Conjunctivae normal. eyes normal. NECK: Supple, No JVD. No thyroid enlargement. No LNs CARDIOVASCULAR: S1, S2 regular.. Systolic murmur RESPIRATION: Breath sounds diminished in the bases. No rhonchi or crackles. No bronchial breathing. ABDOMEN: Soft, nontender . No guarding. no masses palpable. No ascites, No hepatosplenomegaly.Bowel sounds heard. EXTREMITIES: Left shoulder sling, left arm elevated on one pillow , fingers warm and pink positive ,radial pulse. No lower extremity edema/ swelling . No calf tenderness. PSYCHIATRY: Alert and oriented X3, mood and affect normal. NERVOUS SYSTEM: Cranial N 2-12 grossly normal. Moves all 4 limbs. No focal deficits. Strength and sensation grossly intact.. Skin: Warm and dry, no rash Lymphatic system. No LN neck axilla. Results CBC & Chem 7: 01/15/23 17:07 Labs: Abnormal Lab Results - Last 24 Hours (Table) 01/15/23 Range/Units 17:07 WBC 12.2 H (3.8-10.6) k/uL Neutrophils # 11.0 H (1.3-7.7) k/uL Lymphocytes # 0.8 L (1.0-4.8) k/uL Assessment and Plan Assessment: Left severe Osteoarthrosis of the glenohumeral joint, failed conservative management, status post elective left total shoulder arthroplasty Hypertension Hyperlipidemia Plan: Continue on current medication regime ,monitoring and symptomatic treatment. Pain management as per primary. Aggressive home toileting with incentive spirometer ordered. PT OT. Discharge planning in progress per orthopedic surgery. Follow-up with PCP in one week. Thank you for the consult. The impression and plan of care has been dictated as directed. : I performed a history and examination of this patient, discussed the same with the dictator. I agree with the dictator's note ,documented as a scribe. Any additional findings or plans will be noted.
[2023-01-16] MEDS ORDERED: lisinopriL 20 MG TAB PO SCH (21:00)
[2023-01-16] MEDS ORDERED: METOPROLOL TARTRATE 50 MG TAB PO SCH (21:00)
[2023-01-16] MEDS ORDERED: ATORVASTATIN 20 MG TAB PO SCH (21:00)
== END 2023-01-16 15:37 | disposition home or self-care (01) ==
LOC: OR 10:21 → 4SSUR 15:22 → OR 01-16 15:37
PROVIDERS: ATTEND Orthopaedic Surgery
DX: M19.012 Primary osteoarthritis, left shoulder (principal); M25.712 Osteophyte, left shoulder; G89.18 Other acute postprocedural pain; I10 Essential (primary) hypertension; E78.5 Hyperlipidemia, unspecified; M19.90 Unspecified osteoarthritis, unspecified site; Z90.49 Acquired absence of other specified parts of digestive tract; Z96.611 Presence of right artificial shoulder joint; Z87.891 Personal history of nicotine dependence; Z86.59 Personal history of other mental and behavioral disorders; Z79.899 Other long term (current) drug therapy
CPT/HCPCS: 85025; 73020; 23472; 64415; J2250; J1100; J0690 ×2; J2405

== ENCOUNTER → 2023-11-15 | Outpatient (CLI) | payer MEDICARE ==
--- NOTE | 2023-11-18 10:32 | MM ---
Reason for Exam: Screening (asymptomatic). Last mammogram was performed 1 year(s) and 2 month(s) ago. Patient History: Menarche at age 10. First Full-Term at age 19. Postmenopausal. Risk Values: Hali 5 year model risk: 1.6%. NCI Lifetime model risk: 3.4%. Prior Study Comparison: 01/27/2020 Bilateral Screening Mammogram, [facility]. 05/04/2021 Bilateral Screening Mammogram, [facility]. 09/12/2022 Bilateral MG 3D screening mammo w/cad, [facility]. Tissue Density: There are scattered areas of fibroglandular density. Findings: Analyzed By CAD. Right breast: There is no suspicious group of microcalcifications or new suspicious mass. Left breast: There is no suspicious group of microcalcifications or new suspicious mass. Overall Assessment: Negative, BI-RAD 1 Management: Screening Mammogram of both breasts in [address] [facility] will attempt to contact patient to return for supplemental views and ultrasound if indicated. Patient should continue monthly self-breast exams. A clinical breast exam by your physician is recommended on an annual basis. This exam should not preclude additional follow-up of suspicious palpable abnormalities. Note on Hali scores and lifetime risk: 1. A Hali score greater than 3% is considered moderate risk. If this is the case, consider specialist referral to assess eligibility for a risk reducing agent. 2. If overall lifetime risk for the development of breast cancer is 20% or higher, the patient may qualify for future screening with alternating mammogram and breast MRI. Electronically signed and approved by: Rodolfo Beckett DO
== END | disposition home or self-care (01) ==
LOC: RADMAMWWP 09:57
PROVIDERS: ATTEND Family Medicine
DX: Z12.31 Encounter for screening mammogram for malignant neoplasm of breast (principal); I10 Essential (primary) hypertension; Z78.0 Asymptomatic menopausal state
CPT/HCPCS: 77063; 77067

== ENCOUNTER → 2024-11-12 | Outpatient (CLI) | payer MEDICARE ==
--- NOTE | 2024-11-12 10:17 | US ---
EXAMINATION TYPE: US renals and bladder DATE OF EXAM: 11/12/2024 COMPARISON: NONE CLINICAL INDICATION: Female, 74 years old with history of N18.31 CKD STAGE 3A K21.9 GERD E78.2 MIXED HYPERLI; TECHNIQUE: Grayscale imaging of the bilateral kidneys and urinary bladder: FINDINGS: EXAM MEASUREMENTS: Right Kidney: 10.0x5.2x5.3cm Left Kidney: 9.7x6.0x4.2cm limited exam due to overlying bowel, pt body habitus & rib shadow Right Kidney: Anechoic area seen: 2.2x2.5x1.8cm Left Kidney: 2.2x2.1x2.3cm Bladder: wnl Bilateral Jets seen: Yes Some cortical thinning is present bilaterally. There is incidental note of approximate 2.0 cm simple appearing thin-walled cysts in both kidneys. These do not require follow-up. IMPRESSION: No hydronephrosis is seen bilaterally. [facility], , 11/12/2024 10:15 AM
== END | disposition home or self-care (01) ==
LOC: RADUSWWP 09:21
PROVIDERS: ATTEND Family Medicine
DX: E78.2 Mixed hyperlipidemia (principal); E66.9 Obesity, unspecified; N18.31 Chronic kidney disease, stage 3a; K21.9 Gastro-esophageal reflux disease without esophagitis; I10 Essential (primary) hypertension
CPT/HCPCS: 76770

== ENCOUNTER → 2024-12-18 | Outpatient (CLI) | payer MEDICARE ==
--- NOTE | 2024-12-18 11:33 | MM ---
Reason for Exam: Screening (asymptomatic). Last mammogram was performed 1 year(s) and 1 month(s) ago. Patient History: Menarche at age 10. First Full-Term at age 19. Postmenopausal. Risk Values: Hali 5 year model risk: 1.6%. NCI Lifetime model risk: 3.2%. Prior Study Comparison: 05/04/2021 Bilateral Screening Mammogram, [facility]. 09/12/2022 Bilateral MG 3D screening mammo w/cad, [facility]. 11/15/2023 Bilateral MG 3D screening mammo w/cad, [facility]. Tissue Density: There are scattered areas of fibroglandular density. Findings: Analyzed By CAD. There are a few tiny benign appearing round calcifications bilaterally redemonstrated. There is no suspicious group of microcalcifications or new suspicious mass in either breast. Overall Assessment: Benign, BI-RAD 2 Management: Screening Mammogram of both breasts in 1 year. . Patient should continue monthly self-breast exams. A clinical breast exam by your physician is recommended on an annual basis. This exam should not preclude additional follow-up of suspicious palpable abnormalities. Note on Hali scores and lifetime risk: 1. A Hali score greater than 3% is considered moderate risk. If this is the case, consider specialist referral to assess eligibility for a risk reducing agent. 2. If overall lifetime risk for the development of breast cancer is 20% or higher, the patient may qualify for future screening with alternating mammogram and breast MRI. [facility], , 12/18/2024 11:30 AM. Electronically signed and approved by: Jose Campo M.D.
== END | disposition home or self-care (01) ==
LOC: RADMAMWWP 10:57
PROVIDERS: ATTEND Family Medicine
DX: Z12.31 Encounter for screening mammogram for malignant neoplasm of breast (principal); R92.323 Mammographic fibroglandular density, bilateral breasts; R92.1 Mammographic calcification found on diagnostic imaging of breast; Z78.0 Asymptomatic menopausal state
CPT/HCPCS: 77063; 77067

== ENCOUNTER → 2024-12-22 | Outpatient (CLI) | payer MEDICARE ==
[2024-12-22 18:13] LABS: ALT 12 U/L (8-44); AST 23 U/L (13-35); Albumin 4.3 g/dL (3.8-4.9); Albumin/Globulin Ratio 1.59 Ratio (1.60-3.17); Alkaline Phosphatase 78 U/L (41-126); Blood Urea Nitrogen 14.1 mg/dL (9.0-27.0); Calcium 9.4 mg/dL (8.7-10.3); Carbon Dioxide 21.7 mmol/L (21.6-31.8); Chloride 105 mmol/L (96-109); Chol/HDL Ratio 3.12 Ratio; Globulin 2.7 g/dL (1.6-3.3); Glucose 110 mg/dL (70-110); LDL Cholesterol,Calculated 87.8 mg/dL (0.0-131.0); Potassium 4.4 mmol/L (3.5-5.5); Sodium 138 mmol/L (135-145); Total Bilirubin 0.5 mg/dL (0.3-1.2)
== END | disposition home or self-care (01) ==
LOC: LABWHC1 13:07
PROVIDERS: ATTEND Family Medicine
DX: Z00.00 Encounter for general adult medical examination without abnormal findings (principal); I13.10 Hypertensive heart and chronic kidney disease without heart failure, with stage 1 through stage 4 chronic kidney disease, or unspecified chronic kidney disease; E78.2 Mixed hyperlipidemia; E55.9 Vitamin D deficiency, unspecified; E66.9 Obesity, unspecified; N18.2 Chronic kidney disease, stage 2 (mild); Z68.31 Body mass index [BMI] 31.0-31.9, adult; Z78.0 Asymptomatic menopausal state
CPT/HCPCS: 36415; 80053; 80061